=== PATIENT | male | born 1935 | race Caucasian/White ===

== ENCOUNTER 2016-12-21 12:53 | Inpatient (IN) | payer MEDICARE, OTHER ==
[2016-12-21] VITALS (7 sets, daily range): BP systolic 105–137; BP diastolic 32–86; PULSE 50–66; RESP 15–21; O2SAT 93–99
[~2016-12-21] VITALS: Ht 177.8 cm; Wt 68.3 kg
[~2016-12-21 12:53] MED LIST: ALBU8.5H2 INHALATION; ASPI81TA3 PO; ATRV10T PO; CARV25TA PO; CHOL200047 PO; FURO-128 PO; INSU100C8 SUBQ; INSU100V7 SUBQ; IPRA3AMP IH; LISI10TA PO; NITR12SP5 SL; ZYL100 PO
[2016-12-21 13:48] LABS: BASOPHILS % (AUTO) 0.2 % (0-3); EOSINOPHILS % (AUTO) 1.4 % (0-5); Platelet Count 128 bil/L (150-400)
--- NOTE | 2016-12-21 13:58 | ED.REPORT ---
HPI-General Illness Date of Service Dec 21, 2016 ED Provider: Ishan Fields MD 81 year old male with a history of CHF, CAD, COPD, DM, upper GI bleed, and HTN presents to the ER complaining of generalized weakness onset today. He states that he collapsed to his knees after taking two steps toward his vehicle today. Associated symptoms include several weeks of bilateral lower extremity swelling , SOB, dizziness, and urinary retention. Recent history of sore throat with green drainage and nasal congestion. Patient denies any chest pain, nausea, vomiting, and abdominal pain. He is on home O2. Nursing Notes Stated Complaint: WEAKNESS/POSS HEART PROBLEMS Chief Complaint: General Complaint Nursing Notes Reviewed: Yes Allergies: Coded Allergies: Penicillins (Verified Allergy, Severe, 03/30/16) metformin (Verified Allergy, Severe, 03/30/16) tuberculin, purified protein deriva (Verified Allergy, Unknown, 03/30/16) Scheduled Allopurinol (Allopurinol) 100 Mg Tablet 200 MG PO DAILY Carvedilol (Coreg) 25 Mg Tablet 25 MG PO BID Cholecalciferol (Vitamin D3) (Vitamin D3) 2,000 Unit Capsule 3,000 UNIT PO DAILY Insulin Aspart (NovoLOG U100 Insulin Vial) 100 U/Ml U 5 UNIT SUBQ TIDWM Only take with meals if BG > 140 mg/dL prior to meal Insulin Glargine (Lantus U100 Insulin Vial) 100 Unit/Ml Vial 25-40 UNIT SUBQ HS *On avg takes 25-30 units, see sliding scale below Sliding Scale: BG 150-200 : 25 units BG 201-250: 30 units BG 251-300: 35 units BG 301-350: 40 units Ipratropium/Albuterol Sulfate (Iprat-Albut 0.5-3(2.5) mg/3 mL Inhalant Soln) 3 Ml Ampul.neb 3 ML IH Q6 Lisinopril (Lisinopril) 10 Mg Tablet 10 MG PO DAILY Torsemide (Torsemide) 20 Mg Tablet 20 MG PO BIDWM Scheduled PRN Albuterol HFA (Proair HFA) 8.5 Gm Hfa.aer.ad 2 PUFFS INHALATION Q4H PRN PRN For Shortness of Breath Nitroglycerin (Nitrolingual) 12 Gm Henderson 0.4 MG SL prn PRN PRN For Chest Pain General Time Seen by : 13:57 Chief Complaint Weakness Hx Obtained From: Patient Arrived By: Walk-in Sudden in Onset?: Yes Onset Occurred: Just prior to arrival Symptom Duration: Since onset Associated with: Reports: Dizziness, Shortness of breath, Denies: Abdominal pain, Chest pain, Nausea, Vomiting Context Related History: Reports COPD, Reports Coronary artery disease, Reports Diabetes mellitus Similar Sx Previous: No Past Medical History Past Medical History Gout History of colon cancer, s/p colectomy with subsequent hepatic metastasis with embolization and radiation implants at [facility]. History of upper GI bleed Reports: COPD, Congestive heart failure, Coronary artery disease, Diabetes mellitus, Hypertension Past Surgical History Colectomy Reports: CABG Reports: Back/neck surgery, Pacemaker insertion Smoking History Former Smoker Social History Alcohol Use: 1-3 per week Drug Use: Denies drug use Review of Systems +Urinary Retention Full Review of Systems Constitutional: Reports: Weakness - generalized, Denies: Chills, Fever Ears / Nose / Throat: Reports: Nasal congestion, Sore throat Respiratory: Reports: Shortness of breath Cardiovascular: Denies: Chest pain GI: Denies: Abdominal pain, Diarrhea, Nausea, Vomiting Musculoskeletal: Reports: Extremity swelling (Lower, Bilateral) Neurologic: Reports: Dizziness Complete sys rev & neg: except as marked. Physical Exam Vital Signs Vital Signs Date Time Temp Pulse Resp B/P Pulse Ox O2 Delivery O2 Flow Rate FiO2 12/21/16 14:54 54 15 132/45 96 Nasal Cannula 12/21/16 13:31 53 18 116/36 99 Nasal Cannula 3 12/21/16 12:55 36. 53 20 105/32 93 Nasal Cannula 4 Initial VS: Reviewed Head / Eyes: Atraumatic, Normocephalic Neck: Supple, Non-tender, Full range of motion Abdomen / GI: Soft, Non-tender, No guarding, No rebound, No distention Skin: Warm, Dry, No cyanosis Neurologic: Alert, Oriented, Nonfocal General/Constitutional: Awake, Alert, Well developed Respiratory / Chest: Breath sounds NL, No respiratory distress, No rales, No rhonchi, No wheezing, No retractions, No stridor Cardiovascular: Heart rate NL, Regular rhythm, Heart sounds NL, Cap refill not delayed, Peripheral circulation NL 2-3+ edema below the knees, bilaterally 2+ edema above the knees, bilaterally Male Genitourinary: Penis NL Mild scrotal edema. Rectum / Perineum: No hemorrhoids, No lesions, Sphincter tone NL Rectal for Blood: Positive: Blood - occult heme + Brown stool. Interpretation & Diagnostics Bedside US performed by me. 200ml urine present by ultrasound. Lab Results Interpretation Result Diagram: 12/21/16 1330 12/21/16 1330 Test 12/21/16 13:30 12/21/16 16:45 12/21/16 17:11 White Blood Count 9.4th/mm3 (3.8-10.1) Red Blood Count 2.79mil/mm3 (4.40-5.80) Hemoglobin 7.8g/dL (13.8-17.2) Hematocrit 25.4% (41.0-50.0) Mean Corpuscular Volume 91.0fL (81-100) Mean Corpuscular Hemoglobin 28.0pg (27.0-35.0) Mean Corpuscular Hemoglobin Concent 30.7% (32.0-37.0) Red Cell Distribution Width 18.5% (12.3-15.4) Platelet Count 128bil/L (150-400) Neutrophils (%) (Auto) 83.0% (40-74) Lymphocytes (%) (Auto) 10.2% (14-46) Monocytes (%) (Auto) 5.0% (4-12) Eosinophils (%) (Auto) 1.4% (0-5) Basophils (%) (Auto) 0.2% (0-3) Sodium Level 136mEq/L (134-144) Potassium Level 4.1mEq/L (3.5-5.2) Chloride Level 96mEq/L (97-108) Carbon Dioxide Level 20mmol/L (18-29) Blood Urea Nitrogen 74mg/dL (8-27) Creatinine 4.35mg/dL (0.76-1.27) Estimat Glomerular Filtration Rate 14mL/min (>59) Glucose Level 89mg/dL (60-99) Calcium Level 8.4mg/dL (8.5-10.1) Magnesium Level 1.8mg/dL (1.6-2.6) Iron Level 39ug/dL (35-150) Total Iron Binding Capacity 193ug/dL (250-450) Percent Iron Saturation 20%sat (15-50) Unsaturated Iron Binding 153.5ug/dL Ferritin 200ng/mL (30-400) Total Bilirubin 1.5mg/dL (0.0-1.2) Aspartate Amino Transf (AST/SGOT) 21U/L (0-50) Alanine Aminotransferase (ALT/SGPT) 16U/L (0-44) Alkaline Phosphatase 328U/L (25-160) Troponin T 0.339ug/L (0.0-0.011) Pro-B-Type Natriuretic Peptide 35317wg/mL (0-486) Total Protein 7.1g/dL (6.4-8.4) Albumin 2.7g/dL (3.4-5.0) Lactic Acid Level 1.5mmol/L (0.4-2.0) Reticulocyte Count,Calculated 1.5% (0.6-2.6) ECG Interpretation ECG Interpretation: A-V dual-paced rhythm with some inhibition Time: 13:47 Interpreted by: ED physician X-Ray Chest Interpretation Chest Xray Interpretation: IMPRESSION: Patchy airspace opacity in the right lung base suspicious for pneumonia. A small right-sided pleural effusion. Dictated by: Edilia Mendoza MD, PhD on 12/21/2016 at 14:50 Approved by: Edilia Mendoza MD, PhD on 12/21/2016 at 14:51 View: Portable, 1 view Interpretation / Wet Read by: Interpret - Radiologist US Renal/Urinary Tract Exam Performed by: Allied health pract Exam Type: Diagnostic Exam Interpreted by: Radiologist Indication: Urinary retention Re-Eval/Medical Decision Source of Hx: Old records Time of Eval: 15:13 Re-Evaluation/Progress Note: Discussed lab and radiology results and need for admission. Patient is amenable to the plan. All other questions addressed. Consultation #1: Referral / Consult Name: Marisa Soler MD Consulted With: Nephrology Call Returned at: 16:20 Coroner/Medical Examiner: Will see patient Note: Order renal ultrasound. Consultation #2: Referral / Consult Name: Jourdan Dolan MD Consulted With: Hospitalist Call Returned at: 16:23 Coroner/Medical Examiner: Agrees with eval, Agrees with plan, Accepts admit Counseled Regarding: Diagnosis, Lab results, Need for admission Discharge & Departure Primary Impression: Acute renal failure Acute renal failure type: unspecified Qualified Code: N17.9 - Acute kidney failure, unspecified Additional Impression: CHF (congestive heart failure) Congestive heart failure type: systolic Congestive heart failure chronicity: acute on chronic Qualified Code: I50.23 - Acute on chronic systolic ( congestive) heart failure Disposition: ADMITTED TO HOSPITAL Discharge Condition All VS Reviewed: Yes Condition: Stable Referrals: OTHER,PHYSICIAN (PCP) Scribe Attestation Portions of this note were transcribed by Hector Parson. I, Dr. Fields, personally performed the history, physical exam and medical decision-making; I reviewed and confirmed the accuracy of the information in the transcribed note. Signed by: Miguelito De La Cruz, 12/21/2016 and 16:25 Ishan Fields MD Dec 21, 2016 13:58 HECTOR PARSON Dec 21, 2016 14:19
[2016-12-21] MEDS ORDERED: TORS20TA3 PO (14:03)
[2016-12-21 14:27] LABS: Magnesium 1.8 mg/dL (1.6-2.6)
[2016-12-21 14:28] LABS: TROPONIN T 0.339 ug/L (0.0-0.011)
--- NOTE | 2016-12-21 14:52 | DRSVH ---
PROCEDURE: X-RAY CHEST ONE VIEW, PORTABLE ([id number]) INDICATIONS: SOB TECHNIQUE: One view of the chest was acquired. COMPARISON: [facility], CR, XR CHEST 1VW (PORTABLE), 11/11/2015, 12:52. FINDINGS: Surgical changes and devices: Status post CABG procedure. AICD is stable in appearance. Lungs and pleura: Small right-sided pleural effusion is noted. Patchy airspace opacities of the right lung base suspicious for pneumonia. Mediastinum: Mediastinal contours appear normal. Heart size is normal. Bones and chest wall: No suspicious bony lesions. Overlying soft tissues appear unremarkable. IMPRESSION: Patchy airspace opacity in the right lung base suspicious for pneumonia. A small right-si ded pleural effusion. Dictated by: Edilia Mendoza MD, PhD on 12/21/2016 at 14:50 Approved by: Edilia Mendoza MD, PhD on 12/21/2016 at 14:51
[2016-12-21] MEDS ORDERED: Alum-Mag Hydrox-Simeth 30 mL Suspension PO PRN (16:25)
[2016-12-21] MEDS ORDERED: Polyethylene Glycol (PEG) 17 Gm Powder PO PRN (16:25)
[2016-12-21] MEDS ORDERED: Ondansetron 2 mg/mL 2 mL Inj IVPUSH PRN (16:25)
[2016-12-21] MEDS: Heparin 5,000 Unit/mL Inj SUBQ SCH (16:30)
[2016-12-21] MEDS ORDERED: Glucose 40% Oral Gel 15 Gm Tube PO PRN (16:35)
[2016-12-21 17:17] LABS: Unsaturated Iron Binding 153.5 ug/dL
--- NOTE | 2016-12-21 17:27 | DRSVH ---
PROCEDURE: US RENAL SONOGRAM INDICATIONS: acute renal failure, room 15 TECHNIQUE: Real-time scanning was performed of the kidneys and bladder, with image documentation. COMPARISON: None. FINDINGS: Kidneys: Kidneys are normal in size. Right kidney measures 11.4 cm long; left kidney measures 11.9 cm long. Right renal cortical thickness is 1.3 cm; left renal cortical thickness is 1.8 cm. Renal c ortical echotexture is normal. No hydronephrosis or nephrolithiasis. No suspicious solid mass lesio ns. Bladder: Pre-void bladder volume is 27 mL. Post-void residual is zero mL. Pre-void images demonstr ate no intraluminal masses or stones. On pre-void images, right ureteral jet is noted with color Dop pler interrogation. (Of note, ureteral jets may not be detectable in up to 25% of cases due to insuf ficient differences in specific gravity between ureteral and bladder urine). Miscellaneous: There is a minimal appearance of right upper and lower quadrant fluid. IMPRESSION: 1. No obstruction. 2. Minimal appearance of right upper quadrant and lower quadrant fluid. Dictated by: Angeles Armando M.D. on 12/21/2016 at 17:25 Approved by: Angeles Armando M.D. on 12/21/2016 at 17:26
[2016-12-21] MEDS: Insulin LISPRO 300 Unit/3 mL Inj SUBQ SCH ×2 (17:30→22:00)
--- NOTE | 2016-12-21 17:46 | NUR ---
Admission Pt arrived on [facility] to rm 3025, A/Ox3, IV Saline locked, 2.5 L O2 via NC. No complains of pain. Pt unable to transfer self , pt slide from from gurney to bed. Family at bedside. Call light with in reach.
[2016-12-21] MEDS: Furosemide 10 mg/mL 4 mL Inj IVPUSH SCH (18:34)
--- NOTE | 2016-12-21 19:14 | PCM.HPMED ---
Subjective Date of Service Dec 21, 2016 Primary Provider: Admitting Physician: Primary Care Physician: Miguel Attending Physician: Admit Status: From the Emergency Department, Full Admit, Remote Telemetry Chief Complaint: Generalized weakness History of Present Illness: Vahid Parham is a 81 year old male with Congestive heart failure, Coronary artery disease, COPD and chronic respiratory failure, Diabetes who presents to [facility] emergency department complaining of generalized weakness onset today. Patient reports being weak for about 10 days which was progressively getting worst. He states that he collapsed to his knees after taking two steps toward his vehicle today. He denies any trauma and did not hit his head. Associated symptoms include several weeks of bilateral lower extremity swelling, dyspnea on exertion, dizziness, and urinary retention. Recent history of sore throat with green drainage and nasal congestion as well as productive cough. Denies any chest pain, nausea, vomiting, and abdominal pain. He is on home O2. He reports having a lot of stress recently due to his being hospitalized and was discharged to [facility] a few days ago. He denies taking any NSAIDS of other new medications. Patient states he was exposed to [place] during [place] war and has multiple medical issues related to this Case discussed with Dr Fields, workup showed anemia (Hgb 7.8) and Acute kidney injury (74/4.35). Review of Systems: Pertinent positives as noted in HPI. All other systems were reviewed and are negative Allergies Coded Allergies: Penicillins (Verified Allergy, Severe, 03/30/16) metformin (Verified Allergy, Severe, 03/30/16) tuberculin, purified protein deriva (Verified Allergy, Unknown, 03/30/16) Home Medications From [facility], not yet confirmed Vahid Parham [id number] 1935 10/02/2016 03:20 PM 10/22 allopurinol 100 mg tablet take 3 tablet by oral route every day Aspirin Low-Strength 81 mg chewable tablet chew 1 tablet by oral route every day atorvastatin 10 mg tablet take 1 tablet by oral route every day Coreg 25 mg tablet take 1 tablet by oral route 2 times every day with food DuoNeb 0.5 mg-3 mg(2.5 mg base)/3 mL solution for nebulization inhale 3 milliliter by nebulization route 4 times every day as needed Lantus 100 unit/mL subcutaneous solution inject 20-40 Unit by Subcutaneous route Q pm lisinopril 10 mg tablet take 1 tablet by oral route every day Nitrolingual 400 mcg/spray place 1 spray (0.4MG) by Translingual route onto or under the tongue at the first sign of an attack; no more than3 sprays are recommended within a 15 minute period. Novolog 100 unit/mL subcutaneous solution inject by subcutaneous route as per insulin sliding scale protocol- 5-7 units SQ per meal ProAir HFA 90 mcg/actuation aerosol inhaler inhale 2 puff by inhalation route every 4 - 6 hours as needed torsemide 20 mg tablet take 2 tablet by oral route every day Vitamin D3 2,000 unit capsule Taking 3,000 units daily PMH Diabetes type 2 Metastatic Colon cancer to liver s/p radiation at Congestive Heart Failure (heart failure with reduced ejection fraction EF 44%) with cardiomyopathy s/p bi ICD placement Chronic respiratory failure on oxygen at home Peripheral Vascular Disease Coronary artery disease S/P CABG x 4 Peripheral neuropathy Left Bundle Branch Block HTN (hypertension) Hypercholesterolemia Colon carcinoma metastatic to multiple sites Upper GI bleeding from gastritis 2008 . Surgical History CABG Bi ventricular ICD placement Cholecystectomy Back surgery Cataract surgery s/p Angioplasty right femoral profunda Family History Mother had Stroke Brother had NH Social History Hx Alcohol Use: Yes (weekly x 3) Hx Substance Use: No Hx Tobacco Use: Yes Smoking Status: Former Smoker Living Arrangement: Alone Exam Vital Signs Vital Sign - Last Date Time Temp Pulse Resp B/P Pulse Ox O2 Delivery O2 Flow Rate FiO2 12/21/16 14:54 54 15 132/45 96 Nasal Cannula 12/21/16 13:31 3 12/21/16 12:55 36. Exam General: Alert, Oriented X3, Cooperative, No acute Distress Eyes: PERRLA, Scleral Anicteric Mouth: Mouth Normal, Mucous Membranes Moist/[place] Neck: Supple, no Thyromegaly, trachea central. Chest & Lungs: Clear to auscultation & percussion, No adventitious breath sounds, no crackles, no wheeze Cardiovascular: Normal S1, Normal S2, No Murmurs/Rubs/Gallops, Regular Rate/ Rhythm, Murmur, (No JVD, 3+ peripheral edema) Pulses: Radial (present and equal), Dorsalis Pedi (present and equal) Abdomen: Soft, Non-tender, Non-distended, Normoactive bowel tones. Musculoskeletal: Unremarkable. Normal range of motion, no swollen or erythematous joints Extremities: 3+ pitting edema, no cyanosis, no clubbing. Skin: No rashes. Warm and dry, no erythematous areas Neurological: Grossly neurologically intact, has generalized weakness, slurred Speech but baseline, Sensation Intact Lymphatic: Lymph nodes Cervical and Axillary not palpable. Lab and Diagnostics Labs Laboratory Tests Test 12/21/16 13:30 White Blood Count 9.4th/mm3 (3.8-10.1) Red Blood Count 2.79mil/mm3 (4.40-5.80) Hemoglobin 7.8g/dL (13.8-17.2) Hematocrit 25.4% (41.0-50.0) Mean Corpuscular Volume 91.0fL (81-100) Mean Corpuscular Hemoglobin 28.0pg (27.0-35.0) Mean Corpuscular Hemoglobin Concent 30.7% (32.0-37.0) Red Cell Distribution Width 18.5% (12.3-15.4) Platelet Count 128bil/L (150-400) Neutrophils (%) (Auto) 83.0% (40-74) Lymphocytes (%) (Auto) 10.2% (14-46) Monocytes (%) (Auto) 5.0% (4-12) Eosinophils (%) (Auto) 1.4% (0-5) Basophils (%) (Auto) 0.2% (0-3) Sodium Level 136mEq/L (134-144) Potassium Level 4.1mEq/L (3.5-5.2) Chloride Level 96mEq/L (97-108) Carbon Dioxide Level 20mmol/L (18-29) Blood Urea Nitrogen 74mg/dL (8-27) Creatinine 4.35mg/dL (0.76-1.27) Estimat Glomerular Filtration Rate 14mL/min (>59) Glucose Level 89mg/dL (60-99) Lactic Acid Level 5.0mmol/L (0.4-2.0) Calcium Level 8.4mg/dL (8.5-10.1) Magnesium Level 1.8mg/dL (1.6-2.6) Total Bilirubin 1.5mg/dL (0.0-1.2) Aspartate Amino Transf (AST/SGOT) 21U/L (0-50) Alanine Aminotransferase (ALT/SGPT) 16U/L (0-44) Alkaline Phosphatase 328U/L (25-160) Troponin T 0.339ug/L (0.0-0.011) Total Protein 7.1g/dL (6.4-8.4) Albumin 2.7g/dL (3.4-5.0) Microbiology 12/21/16 Blood Culture, Received Pending Result Diagram: 12/21/16 1330 12/21/16 1330 X-Rays, CTs and MRIs X-RAY CHEST ONE VIEW, PORTABLE 12/21/16 IMPRESSION: Patchy airspace opacity in the right lung base suspicious for pneumonia. A small right-sided pleural effusion. Dictated by: Edilia Mendoza MD, PhD on 12/21/2016 at 14:50 Approved by: Edilia Mendoza MD, PhD on 12/21/2016 at 14:51 Assessment & Plan Vahid Parham is a 81 year old male with Congestive heart failure, Coronary artery disease, COPD and chronic respiratory failure, Diabetes who presents to [facility] emergency department complaining of generalized weakness 1. Acute Kidney Injury. Present on admission Etiology unclear but consider pre renal azotemia, Obstructive uropathy, Cardiorenal syndrome - weakness could be due to Uremia but other causes are possible - no indication for emergent dialysis with no hyperkalemia or acidosis - avoid nephrotoxic insults including contrast and medications - Renal ultrasound pending - holding TAMRA inhibitor - monitor urine output - Nephrology consulted 2. Lactic acidosis. Present on admission Due to tissue hypoxia. NO clear infection identified at this time - trending till normal 3. Elevated troponin. Present on admission Likely due to demand ischemia although patient has risk factors for Non ST elevation [place] - trending troponin overnight - will obtain a complete echo 4 Anemia, likley chronic. Present on admission Previous history of Upper GI bleeding from gastritis - will transfuse if Hgb drops < 8 - Iron studies ordered - No clinical signs of active bleeding 5 Chronic heart failure with possible acute exacerbation. Dyspnea with increasing leg edema. Patient on Torsemide as outpatient - Lasix 40 mg IV q 8 hours - monitor weight and urine output - complete echo tomorrow 6 Thrombocytopenia. Present on admission Likely chronic and likely related to cirrhosis - monitor for bleeding 7 Diabetes Type 2 - low correction Lispro algorithm - checking A1c - Acetaminophen as needed for mild pain/fever/headache - Bowel regimen as needed - Antiemetic as needed Patient admitted under inpatient status with expected length of stay > 2 midnights for severity of present symptoms, complexities of treatment plan and risk for adverse event . Resuscitation Status: CPR: Attempt Resuscitation Jourdan Dolan MD Dec 21, 2016 16:30
--- NOTE | 2016-12-21 19:18 | ABG ---
DateTimeAnalyzed 19:13:00 -_ pH ____7.401 - 7.350 7.450 pCO2 ___38.2__ -mmHg 35.0 45.0 pO2 ___55.6__ -mmHg 69.0 116 HCO3- ___23.3__ -mmol/L 22.0 26.0 ABE ___-0.8__ -mmol/L -2.0 2.0 tHb ____7.6__ -g/dL O2Hb ___88.1__ -% COHb ____2.0__ -% MetHb ____0.6__ -% sO2 ___90.5__ -% 25.0 FIO2 ___28.0__ -% Drawn By blf - Date/Time Notified____ 19:18:00 -_ Notified By blf - Notified Whom Haresh Car RN - Age 73 -years B 756 -mmHg tO2 ____9.5__ -Vol% Chris test _Positive -
--- NOTE | 2016-12-21 19:19 | ABG ---
DateTimeAnalyzed 19:13:00 -_ pH ____7.401 - 7.350 7.450 pCO2 ___38.2__ -mmHg 35.0 45.0 pO2 ___55.6__ -mmHg 69.0 116 HCO3- ___23.3__ -mmol/L 22.0 26.0 ABE ___-0.8__ -mmol/L -2.0 2.0 tHb ____7.6__ -g/dL O2Hb ___88.1__ -% COHb ____2.0__ -% MetHb ____0.6__ -% sO2 ___90.5__ -% 25.0 FIO2 ___28.0__ -% Drawn By blf - Date/Time Notified____ 19:18:00 -_ Spontaneous_RR ___16.0__ -b/min Liter_Flow ____2.0__ -L/min Oxygen Device 1 __CANNULA - Notified By blf - Notified Whom Haresh Car RN - Age 73 -years B 756 -mmHg tO2 ____9.5__ -Vol% Chris test _Positive -
[2016-12-22] VITALS (11 sets, daily range): BP systolic 120–154; BP diastolic 46–60; PULSE 50–57; RESP 18–22; O2SAT 95–100
[2016-12-22] MEDS ORDERED: ATRV10T PO (00:14)
[2016-12-22] MEDS ORDERED: CHOL10008 PO (00:16)
[2016-12-22] MEDS ORDERED: ASPI81TA3 PO (00:18)
[2016-12-22] MEDS: Heparin 5,000 Unit/mL Inj SUBQ SCH ×3 (00:30→16:09)
--- NOTE | 2016-12-22 00:43 | CONS ---
[address] [address] CONSULTATION REPORT PATIENT: EMBER PANDEY : 1935 MR#: [id number] ADMIT: 12/21/2016 JOB ID: [id number] DATE OF SERVICE: 12/21/2016 REQUESTING PHYSICIAN: Ishan Fields MD REASON FOR CONSULTATION: Management of abnormal kidney function. CHIEF COMPLAINT: Lower extremity swelling and weakness. HISTORY OF PRESENT ILLNESS: This is a very pleasant 81-year-old gentleman with significant past medical history of type 2 diabetes, hypertension, COPD, coronary artery disease status post CABG, heart failure, status post AICD, colon cancer, status post right-sided colectomy, presented to the hospital with complaint of worsening lower extremity swelling and generalized weakness. The patient reported that he has had lower extremity swelling over the past 10-14 days. Today, apparently he collapsed on his knees while he stepping toward his vehicle. He said that he had increased dosage of diuretics, however, it did not improve the fluid retention. Last night, he noticed some clots in the urine. He does not take any blood thinner, but on the medication list he is on aspirin. His initial BUN and creatinine were 74 and 4.35 respectively. According to our record his previous serum creatinine in March 2016 was 1.19. The patient denies any knowledge of having kidney disease. He does not use any NSAIDs. He does not have any history of vasculitis or nephrolithiasis. Bladder scan was done at the bedside and showed urine volume of 200 mL. I had a chance to look at the kidney sonogram that was done at the bedside. There was no evidence of hydronephrosis. However, I am waiting for an official report. The patient denies history of fever or chills. No nausea, vomiting, diarrhea. He does not have any chest pressure or chest pain. He does have history of dyspnea on exertion and generalized weakness as mentioned earlier. PAST MEDICAL HISTORY: 1. Hypertension. 2. Type 2 diabetes. 3. Stage IV colon cancer, status post right hemicolectomy and radiation. 4. COPD on home oxygen. 5. Peripheral vascular disease. 6. Coronary artery disease status post CABG. 7. CHF with reduced ejection fraction. 8. Status post AICD. PAST SURGICAL HISTORY: 1. Status post CABG. 2. Status post AICD. 3. Status post cholecystectomy. 4. Status post back surgery. 5. Angioplasty of the right femoral profunda. FAMILY HISTORY: Positive for stroke and CT in the family. No kidney disease in the family. SOCIAL HISTORY: Patient is a former smoker. ALLERGIES: 1. PENICILLINS. 2. METFORMIN. 3. TUBERCULIN PURIFIED PROTEIN DERIVATIVE. REVIEW OF SYSTEMS: A 14-point review of systems was performed. PHYSICAL EXAMINATION: Temperature 36.0, pulse 54, respiratory rate 15, blood pressure 132/45, O2 sat 96% on nasal cannula. General appearance: Awake, alert, oriented x3, in no acute distress. HEENT: Mild pallor. No jaundice. Positive for JVD. No lymphadenopathy. No thyroid enlargement. Heart: Irregular rhythm. Soft systolic murmur noted. Defibrillator in place on the left upper chest. Scar is dry, clean, intact. Lungs: Coarse crackles at the bases. No wheezing. No rhonchi. Abdomen: Soft, nontender, nondistended. No hepatosplenomegaly. Extremities: 2+ edema on the lower extremities. LABORATORIES: Sodium 136, potassium 4.1, chloride 96, bicarb 20, BUN 74, creatinine 4.35, glucose 89. Lactic acid 5.0, calcium of 8.4, magnesium 1.8. Total bilirubin is 1.5, AST 21, ALT 16, alkaline phos 328. Troponin T is 0.339. Albumin 2.7. Hemoglobin 7.8, WBC 9.4, platelets 128. ASSESSMENT: 1. Acute kidney injury on chronic kidney disease, stage III. Patient with significant past medical history of heart failure, reduced ejection fraction, status post automatic implantable cardioverter-defibrillator placement. We have performed a bedside renal sonogram and so far does not show any obstruction or stones. He reports no history of nonsteroidal anti-inflammatory drug use. He reported to us that he is weak and with worsening lower extremity swelling. I am concerned of cardiorenal syndrome. At this point, I would like to give him IV diuretics Lasix 40 mg q. 8 h. Will order urinalysis and urine eosinophils. For now, will hold lisinopril. Will put patient on low-salt diet and continue daily weight. 2. Anion gap metabolic acidosis with a lactate level of 5.0. Rule out poor tissue perfusion versus sepsis. 3. Elevated serum troponin in the setting of renal insufficiency. 4. History of chronic obstructive pulmonary disease, on home oxygen. Will order an ABG. 5. Normocytic anemia. Will order anemic workup including ferritin, iron panel, reticulocyte count and stool occult blood. 6. Recommend to repeat echocardiogram. 7. History of heart failure, reduced ejection fraction, status post AICD. Will repeat echocardiogram. Thank you for the consultation. We will monitor along with you. MTDD
[2016-12-22] MEDS: Furosemide 10 mg/mL 4 mL Inj IVPUSH SCH ×2 (01:46→10:16)
--- NOTE | 2016-12-22 02:07 | NUR ---
Chest pain Pt experiencing new on set CP, EKG ordered and no significant changes noted. VSS and Tele paced. notified and orders for nitro SL were given. Pt states that he takes nitro as needed and had taken some this am. Pt usually uses the spray and we are currently out of stock. Administered 3 SL nitro and effective. VSS
[2016-12-22 04:06] LABS: APPEARANCE,URINE CLEAR (CLEAR,HAZY); COLOR,URINE YELLOW (YELLOW)
[2016-12-22 04:07] LABS: OCCULT BLOOD,URINE NEGATIVE (NEGATIVE); UROBILINOGEN,URINE NORMAL (NORMAL)
[2016-12-22] MEDS: Insulin LISPRO 300 Unit/3 mL Inj SUBQ SCH ×4 (08:00→22:32)
[2016-12-22 09:14] LABS: BASOPHILS % (AUTO) 0.1 % (0-3); EOSINOPHILS % (AUTO) 1.8 % (0-5); MONOCYTES % (AUTO) 5.9 % (4-12); Mean Corpuscular Volume 91.1 fL (81-100); NEUTROPHILS % (AUTO) 79.4 % (40-74); Platelet Count 122 bil/L (150-400)
[2016-12-22 09:34] LABS: INR 1.12 ratio
[2016-12-22 10:09] LABS: Vitamin B12 540 pg/mL (211-946)
[2016-12-22 10:11] LABS: Magnesium 1.9 mg/dL (1.6-2.6)
--- NOTE | 2016-12-22 10:27 | NUR ---
diet pt asks that he be put on a general diet because that is what he eats at home. Risks discussed regarding a change to a general diet, pt still wants a general diet. Diet Against Advice paperwork is signed and put into the chart.
[2016-12-22 10:35] LABS: TROPONIN T 0.308 ug/L (0.0-0.011)
--- NOTE | 2016-12-22 11:35 | PCM.PNMED ---
Subjective Date of Service Dec 22, 2016 Subjective Patient is breathing better and has less lower extremity swelling. However his kidney function has been deteriorating. Intake was 600 mL output was 400 mL. Exam Vital Signs Vital Sign - Last Date Time Temp Pulse Resp B/P Pulse Ox O2 Delivery O2 Flow Rate FiO2 12/22/16 10:56 50 12/22/16 10:37 Supplement Oxygen 12/22/16 09:22 36.4 20 137/53 99 3.50 Exam PHYSICAL EXAMINATION: General appearance: Awake, alert, oriented x3, in no acute distress. HEENT: Mild pallor. No jaundice. Positive for JVD. No lymphadenopathy. No thyroid enlargement. Heart: Irregular rhythm. Soft systolic murmur noted. Defibrillator in place on the left upper chest. Scar is dry, clean, intact. Lungs: Decreased breath sounds at bases, No wheezing. No rhonchi. Abdomen: Soft, nontender, nondistended. No hepatosplenomegaly. Extremities: 1+ edema on the lower extremities. Lab and Diagnostics Result Diagram: 12/22/16 0908 12/22/16 0908 X-Rays, CTs and MRIs X-RAY CHEST ONE VIEW, PORTABLE 12/21/16 IMPRESSION: Patchy airspace opacity in the right lung base suspicious for pneumonia. A small right-sided pleural effusion. Dictated by: Edilia Mendoza MD, PhD on 12/21/2016 at 14:50 Approved by: Edilia Mendoza MD, PhD on 12/21/2016 at 14:51 Assessment & Plan ASSESSMENT: 1. Acute kidney injury on chronic kidney disease, stage III. - Worsening kidney function - Etiologies is unclear, DDx cardiorenal syndrome, ATN, AIN however we need to rule out vasculitis (pulmonary-renal syndrome) - We will order a vasculitic workup, hepatitis panel and HIV. - If kidney function is getting worse will arrange for renal replacement therapy. 2. Anion gap metabolic acidosis with a lactate level of 5.0. Rule out poor tissue perfusion versus sepsis. 3. Elevated serum troponin in the setting of renal insufficiency. 4. Suspected RLL PNA vs vasculitis process. 5. History of chronic obstructive pulmonary disease, on home oxygen. 6. Normocytic anemia. Likely due to anemia of chronic disease 6. Recommend to repeat echocardiogram. 7. History of heart failure, reduced ejection fraction, status post AICD. VTE Mechanical Devices: Venous Foot Pump Resuscitation Status: CPR: Attempt Resuscitation Marisa Soler MD Dec 22, 2016 11:35 Marisa Soler MD Dec 22, 2016 11:35
[2016-12-22] MEDS ORDERED: Darbepoetin Alfa 40 mCg/0.4 mL Inj SUBQ ONE (11:50)
--- NOTE | 2016-12-22 14:43 | NUR ---
Social Work-initial assessment: Data:See initial assessment.Pt is a 81 y/o male who was admitted on 12/21/16 for acute renal failure per H&P. Pt's insurance is [employer] and [employer] and PCP is Dr. Suazo.EMR reviewed. Pt's readmission score is 4-high risk. SW met with pt to discuss discharge planning, SW role explained. Pt resides at home where he remains independent with ADLs. Pt's recently has been placed at [facility]. Pt does drive and does not use any DME. Pt has no HH or SNF history. 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 SW discussed DPOA/advanced directive, pt confirms that he has completed this, SW encouraged pt to bring in a copy to the hospital. PT worked with pt and anticipate pt to return home with HH services. SW discussed HH services, at this time pt is declining, SW to follow up again. Pt confirms that his daughter will provide transport home at discharge. SW will continue to follow. Assessment:pt who is independent at baseline. Plan:Pt to discharge home when medically stable via POV. SW to follow up again regarding HH. SW will continue to follow. LOVE Isbell Addendum: 12/22/16 at 1459 by JORGE A CROSS Amended: Links added.
--- NOTE | 2016-12-22 15:50 | DRSVH ---
PROCEDURE: X-RAY CHEST ONE VIEW, PORTABLE ([id number]) INDICATIONS: CHF, PNA TECHNIQUE: One view of the chest was acquired. COMPARISON: [facility], CR, XR CHEST 1VW (PORTABLE), 12/21/2016, 13:37. FINDINGS: Surgical changes and devices: Stable positioning of left chest AICD. Median sternotomy wires. Surgi sita clips project over the epigastrium. Lungs and pleura: Diffuse, widespread bilateral pulmonary interstitial and air space opacities are p resent similar to prior examination. Small right pleural effusion. No pneumothorax. Mediastinum: Mediastinal contours appear normal. Heart size is enlarged. Bones and chest wall: No suspicious bony lesions. Overlying soft tissues appear unremarkable. IMPRESSION: CHF and/or bilateral pneumonia similar to prior examination. Dictated by: Otilio Cullen [facility] Interpreted: Edilia Mendoza MD on 12/22/2016 at 15:49 Transcribed by: CONNIE on 12/22/2016 at 15:50 Approved by: Edilia Mendoza MD, PhD on 12/23/2016 at 11:03
--- NOTE | 2016-12-22 16:12 | PCM.PNMED ---
Subjective Date of Service Dec 22, 2016 Subjective denies any new issues/complaints Exam Vital Signs Vital Sign - Last Date Time Temp Pulse Resp B/P Pulse Ox O2 Delivery O2 Flow Rate FiO2 12/22/16 13:24 36.7 54 18 128/50 98 Nasal Cannula 3.50 Exam General: Alert, Cooperative, No acute Distress Eyes: PERRLA, Scleral Anicteric Mouth: Mouth Normal, Mucous Membranes Moist/[place] Neck: Supple Chest & Lungs: Clear to auscultation bilat Cardiovascular: Regular Rate/Rhythm Pulses: Dorsalis Pedi (present and equal) Abdomen: Soft, Non-tender, Non-distended, Normoactive bowel tones. Musculoskeletal: Unremarkable. Normal range of motion, no swollen or erythematous joints Extremities: 3+ pitting edema, no cyanosis, no clubbing. Skin: No rashes. Neurological: Grossly neurologically intact IVs and Medications Medications Reviewed: Medications were reviewed in detail Lab and Diagnostics Result Diagram: 12/22/16 0908 12/22/16 0908 X-Rays, CTs and MRIs X-RAY CHEST ONE VIEW, PORTABLE 12/21/16 IMPRESSION: Patchy airspace opacity in the right lung base suspicious for pneumonia. A small right-sided pleural effusion. Dictated by: Edilia Mendoza MD, PhD on 12/21/2016 at 14:50 Approved by: Edilia Mendoza MD, PhD on 12/21/2016 at 14:51 Assessment & Plan 81 year old male with Congestive heart failure, Coronary artery disease, COPD and chronic respiratory failure, Diabetes who presents to [facility] emergency department complaining of generalized weakness # Acute Kidney Injury on chronic kidney disease, stage III. present on admission. - Worsening kidney function - Etiologies is unclear, DDx cardiorenal syndrome, ATN, AIN - appreciate nephrology consult. will f/u w/ recs - f/u vasculitic workup, hepatitis panel and HIV. - weakness could be due to Uremia but other causes are possible - avoid nephrotoxic insults - Renal ultrasound without acute finding - monitor urine output # Acute Anion gap metabolic acidosis with a lactate level of 5.0. present on admission. resolved. - Likely tissue hypoxia. NO clear infection identified at this time - Resolved # Elevated troponin. Present on admission - denies any CP - f/u pending Echo # Anemia, likely chronic. Present on admission Previous history of Upper GI bleeding from gastritis - will transfuse if Hgb drops < 8 - No clinical signs of active bleeding # Chronic heart failure with possible acute exacerbation. Dyspnea with increasing leg edema. Patient on Torsemide as outpatient - further diuresis per nephrology recs - f/u pending Echo # Thrombocytopenia. Present on admission Likely chronic and likely related to cirrhosis - monitor for bleeding # Diabetes Type 2 - low correction Lispro algorithm - checking A1c 6.7 # Suspected acute pneumonia vs vasculitis process. - no leukocytosis. - no fever - hold off on Abx at this time - f/u clinically # History of chronic obstructive pulmonary disease - on home oxygen. Dispo: 2-4 days VTE Mechanical Devices: Venous Foot Pump Resuscitation Status: CPR: Attempt Resuscitation Kenroy Beatty Dec 22, 2016 16:12
--- NOTE | 2016-12-22 17:20 | DRSVH ---
[facility] [address] [place] [address] Echocardiogram Report Name: EMBER PANDEY WStudy Date: 04/2017 Height: 70 in Hospital Exam Location: [facility] Weight: 178 lb Gender: Male BSA: 2.0 m2 : 1935 Age: 81 yrs BP: 139/57 mmHg Reason For Study: SHORTNESS OF BREATH Ordering Physician: Performed By: Shashi Mares Referring Physician: Geo SCHROEDER Interpretation Summary The left ventricle is mildly dilated. Left ventricular ejection fraction is estimated to be 35 +/- 5%. Flattened septum is consistent with RV pressure/volume overload. Lateral wall is mildly hypokinetic with thinning and akinesis of the majority of the inferior and posterior hough. There is a pacemaker lead in the right ventricle. Right ventricular systolic function is mildly reduced. Both atria are severely dilated. There is mild aortic valve sclerosis. There is mild aortic regurgitation. There is moderate to severe tricuspid regurgitation. The right ventricular systolic pressure is estimated at 47 mmHg assuming a right atrial pressure of 15 mm Hg. Compared to the prior echo exam, there has been an increase in the severity of pulmonary hypertension. There is mild mitral regurgitation. Compared to the prior echo study, there has been an increase in the severity of mitral regurgitation. Procedure: A two-dimensional transthoracic echocardiogram with color flow and Doppler was performed. The study quality was technically good. Comparison is made with the echocardiogram of 06/23/16. The suprasternal notch views were difficult to obtain and are suboptimal in quality. The patient was in normal sinus rhythm during the exam. The patient had occasional PACs during the exam. Left Ventricle: There is normal left ventricular wall thickness. The left ventricle is mildly dilated. Left ventricular ejection fraction is estimated to be 35 +/- 5%. There has been no significant change since the previous exam. Flattened septum is consistent with RV pressure/volume overload. Lateral wall is mildly hypokinetic with thinning and akinesis of the majority of the inferior and posterior hough. Right Ventricle: There is a pacemaker lead in the right ventricle. The right ventricle is borderline dilated. Right ventricular systolic function is mildly reduced. Atria: Both atria are severely dilated. The interatrial septum is intact with no evidence for an atrial septal defect. Mitral Valve: The mitral valve is normal in structure and function. There is mild mitral annular calcification. There is mild mitral regurgitation. Compared to the prior echo study, there has been an increase in the severity of mitral regurgitation. Aortic Valve: The aortic valve is trileaflet. The aortic valve opens well. There is discrete nodular thickening of the non- coronary cusp. There is mild aortic valve sclerosis. There is mild aortic regurgitation. Tricuspid Valve: The tricuspid valve leaflets are thin and pliable. There is moderate to severe tricuspid regurgitation. The right ventricular systolic pressure is estimated at 47 mmHg assuming a right atrial pressure of 15 mm Hg. Compared to the prior echo exam, there has been an increase in the severity of pulmonary hypertension. Pulmonic Valve: The pulmonic valve is normal in structure and function. There is trace pulmonic regurgitation. Great Vessels: The aortic root is normal size. The ascending aorta is mildly enlarged. The pulmonary artery is normal size. The IVC is dilated (diameter is greater than 2.1 cm) and it collapses less than 50% with a sniff. This suggests a high right atrial pressure of 15 mm Hg. Pericardium/ Pleura There is no pericardial effusion. There is a large right-sided pleural effusion. Incidental finding of abdominal ascites is noted. MMode/2D Measurements & Calculations LVIDd: 6.0 cm LA dimension: 4.3 cm RA long axis: 6.5 cm LVOT diam LVIDs: 5.4 cm FS: 9.8 % LA A2 area: 30.9 cm RA area: 31.9 cm AoV Opening EPSS: 1.9 cm LA A4 area: 26.8 cm RA vol: 133.1 ml IVSd: 1.0 cm LA length (vol): 6.9 cm RA : 67.0 ml/m2 Ao root diam LVPWd: 0.98 cm LA vol: 101.7 ml LA vol index Aortic Jxn asc Aorta IVC diam: 2.8 cm Diam: 3.5 cm EDV(MOD-sp2) LV barlow. diameter/BSA LV sys. diameter/BSA RVD1 (basal) : 243.2 ml (cm/m^2): 3.0 (cm/m^2): 2.7 : 4.5 cm RVD2 (mid) : 3.9 cm Doppler Measurements & Calculations Ao V2 max: 171.8 cm/secMV E max vince MV E/A: 1.4 TR max vince Ao max P.8 mmHg : 95.4 cm/sec Med Peak E' Vince : 282.2 cm/sec Ao mean P.0 mmHg MV A max vince TR max PG LVOT Max Vince : 67.2 cm/sec E/E' med: 33.1 : 31.9 mmHg : 106.0 cm/sec Lat Peak E' Vince PA V2 max : 50.3 cm/sec ANDRADE(I,D): 2.5 cm E/E' lat: 28.3 PA mean PG sev ratio: 0.61 E/e' average : 0.70 mmHg AI P1/2t: 382.1 msec PA Accel Time AI dec slope MV A dur : 0.14 sec : 250.5 cm/s2c : 0.18 sec MV dec time: 0.16 sec Ao V2 mean LV V1 max PG PA V2 mean : 130.8 cm/sec : 40.9 cm/sec Ao V2 VTI: 46.4 cmLV V1 VTI PA pr(Accel) : 28.2 cm : 15.8 mmHg ANDRADE(V,D): 2.6 cm2 ANDRADE indexed to BSA (cm^2/m^2): 1.3 Electronically signed by: Weston Sanchez on Reading Physician:12/22/2016 01:07 PM
[2016-12-22 17:31] LABS: APPEARANCE,URINE CLEAR (CLEAR,HAZY); COLOR,URINE YELLOW (YELLOW); OCCULT BLOOD,URINE TRACE (NEGATIVE); PH,URINE 5.5 (5.0-8.0); UROBILINOGEN,URINE NORMAL (NORMAL)
[2016-12-23] VITALS (8 sets, daily range): BP systolic 138–159; BP diastolic 54–67; PULSE 47–67; RESP 18–20; O2SAT 96–100
[2016-12-23] MEDS: Heparin 5,000 Unit/mL Inj SUBQ SCH ×3 (01:14→18:39)
[2016-12-23 07:24] LABS: BASOPHILS % (AUTO) 0.1 % (0-3); EOSINOPHILS % (AUTO) 1.5 % (0-5); MONOCYTES % (AUTO) 5.5 % (4-12); Mean Corpuscular Hemoglobin 27.3 pg (27.0-35.0); Mean Corpuscular Volume 90.2 fL (81-100); NEUTROPHILS % (AUTO) 79.7 % (40-74); Platelet Count 131 bil/L (150-400)
[2016-12-23 07:39] LABS: Phosphorus 5.4 mg/dL (2.5-4.9)
[2016-12-23] MEDS: Insulin LISPRO 300 Unit/3 mL Inj SUBQ SCH ×4 (08:00→23:20)
--- NOTE | 2016-12-23 11:34 | PCM.PNNEPH ---
Subjective Date of Service Dec 23, 2016 Subjective Serum creatinine continues to climb. He is feeling weak. LE swelling remains swollen. Exam Vital Signs Vital Sign - Last Date Time Temp Pulse Resp B/P Pulse Ox O2 Delivery O2 Flow Rate FiO2 12/23/16 09:30 36.6 67 18 151/65 96 Nasal Cannula 4.00 Intake and Output 12/22/16 12/22/16 12/23/16 Cumulative From/Thru 15:00 23:00 07:00 12/21/16 12:55 - 12/23/16 06:52 Intake Total 600 ml 711 ml 200 ml 1511 ml Output Total 400 ml 450 ml 400 ml 1250 ml Balance 200 ml 261 ml -200 ml 261 ml Intake Oral 600 ml 711 ml 200 ml 1511 ml Output Urine Total 400 ml 450 ml 400 ml 1250 ml # Bowel Movements 1 1 1 3 Exam General appearance: Awake, alert, oriented x3, in no acute distress. HEENT: Mild pallor. No jaundice. Positive for JVD. No lymphadenopathy. No thyroid enlargement. Heart: Irregular rhythm. Soft systolic murmur noted. Defibrillator in place on the left upper chest. Scar is dry, clean, intact. Lungs: rales at bases, No wheezing. No rhonchi. Abdomen: Soft, nontender, nondistended. No hepatosplenomegaly. Extremities: 2+ edema on the lower extremities. Lab and Diagnostics Result Diagram: 12/23/16 0635 12/23/16 0635 X-Rays, CTs and MRIs X-RAY CHEST ONE VIEW, PORTABLE 12/21/16 IMPRESSION: Patchy airspace opacity in the right lung base suspicious for pneumonia. A small right-sided pleural effusion. Dictated by: Edilia Mendoza MD, PhD on 12/21/2016 at 14:50 Approved by: Edilia Mendoza MD, PhD on 12/21/2016 at 14:51 Plan Impression ASSESSMENT: 1. Acute kidney injury on chronic kidney disease, stage III. - Worsening kidney function - Etiologies is unclear, DDx cardiorenal syndrome and ATN, however we need to rule out vasculitis (pulmonary-renal syndrome) - vasculitic workup, hepatitis panel and HIV-ordered. - If kidney function is getting worse will arrange for renal replacement therapy. 2. Acute on chronic biventricular systolic CHF with pulm hypertension Echo: EF 35 +/- 5%. Flattened septum is consistent with RV pressure/volume overload. Lateral wall is mildly hypokinetic with thinning and akinesis of the majority of the inferior and posterior hough. There is a pacemaker lead in the right ventricle. Right ventricular systolic function is mildly reduced. Both atria are severely dilated. There is mild aortic valve sclerosis. There is mild aortic regurgitation. There is moderate to severe tricuspid regurgitation. The right ventricular systolic pressure is estimated at 47 mmHg assuming a right atrial pressure of 15 mm Hg. 3. Elevated serum troponin in the setting of renal insufficiency. 4. Suspected RLL PNA vs vasculitis process. 5. History of chronic obstructive pulmonary disease, on home oxygen. 6. Normocytic anemia. Likely due to anemia of chronic disease 6. Recommend to repeat echocardiogram. 7. History of heart failure, reduced ejection fraction, status post AICD. Plan: IV lasix 80 mg Q 12 hr, add metolazone 5 mg x 1. rec cardiology consultation. Marisa Soler MD Dec 23, 2016 11:34
[2016-12-23] MEDS: Furosemide 10 mg/mL 10 mL Inj IVPUSH SCH ×2 (12:45→23:20)
--- NOTE | 2016-12-23 15:49 | PCM.PNMED ---
Subjective Date of Service Dec 23, 2016 Subjective was having some chest pressure earlier but denies any now. no n/v. Exam Vital Signs Vital Sign - Last Date Time Temp Pulse Resp B/P Pulse Ox O2 Delivery O2 Flow Rate FiO2 12/23/16 12:46 66 12/23/16 09:30 36.6 18 151/65 96 Nasal Cannula 4.00 Intake and Output 12/22/16 12/22/16 12/23/16 Cumulative From/Thru 15:00 23:00 07:00 12/21/16 12:55 - 12/23/16 06:52 Intake Total 600 ml 711 ml 200 ml 1511 ml Output Total 400 ml 450 ml 400 ml 1250 ml Balance 200 ml 261 ml -200 ml 261 ml Intake Oral 600 ml 711 ml 200 ml 1511 ml Output Urine Total 400 ml 450 ml 400 ml 1250 ml # Bowel Movements 1 1 1 3 Exam General: Alert, Cooperative, No acute Distress Eyes: PERRLA, Scleral Anicteric Mouth: Mouth Normal, Mucous Membranes Moist/[place] Neck: Supple Chest & Lungs: Clear to auscultation bilat Cardiovascular: Regular Rate/Rhythm Pulses: Dorsalis Pedi (present and equal) Abdomen: Soft, Non-tender, Non-distended, Normoactive bowel tones. Musculoskeletal: Unremarkable. Normal range of motion, no swollen or erythematous joints Extremities: 3+ pitting edema, no cyanosis, no clubbing. Skin: No rashes. Neurological: Grossly neurologically intact IVs and Medications Medications Reviewed: Medications were reviewed in detail Lab and Diagnostics Result Diagram: 12/23/1635 12/23/1635 X-Rays, CTs and MRIs X-RAY CHEST ONE VIEW, PORTABLE 12/21/16 IMPRESSION: Patchy airspace opacity in the right lung base suspicious for pneumonia. A small right-sided pleural effusion. Dictated by: Edilia Mendoza MD, PhD on 12/21/2016 at 14:50 Approved by: Edilia Mendoza MD, PhD on 12/21/2016 at 14:51 Assessment & Plan 81 year old male with Congestive heart failure, Coronary artery disease, COPD and chronic respiratory failure, Diabetes who presents to [facility] emergency department complaining of generalized weakness # Acute Kidney Injury on chronic kidney disease, stage III. present on admission. ongoing - Worsening kidney function - Etiologies is unclear, DDx cardiorenal syndrome, ATN, AIN - appreciate nephrology consult. will f/u w/ recs - f/u vasculitic workup, hepatitis panel and HIV. - weakness could be due to Uremia but other causes are possible - avoid nephrotoxic insults - Renal ultrasound without acute finding - monitor urine output # Acute Anion gap metabolic acidosis with a lactate level of 5.0. present on admission. resolved. - Likely tissue hypoxia. NO clear infection identified at this time - Resolved # Elevated troponin. Present on admission - Echo 12/22/16: EF 35 +/- 5%. "Flattened septum is consistent with RV pressure/ volume overload. Lateral wall is mildly hypokinetic with thinning and akinesis of the majority of the inferior and posterior hough." - new chest discomfort early this morning possibly due to worsening anemia. Did not have CP before presentation - transfuse PRBC and consider further cardiology consult if symptoms reoccur # Anemia, likely chronic. Present on admission. - worsening anemia without any obvious source of active bleeding - Previous history of Upper GI bleeding from gastritis - per discussion with nephrology consult today will transfuse only one unit of PRBC slowly and f/u # Chronic systolic heart failure with possible acute exacerbation. Dyspnea with increasing leg edema. Patient on Torsemide as outpatient - further diuresis per nephrology recs # Thrombocytopenia. Present on admission Likely chronic and likely related to cirrhosis - monitor for bleeding # Diabetes Type 2 - low correction Lispro algorithm - HgA1c 6.7 # Suspected acute pneumonia vs vasculitis process. - no leukocytosis. - no fever - hold off on Abx at this time - f/u clinically # History of chronic obstructive pulmonary disease - on home oxygen. Dispo: 2-4 days pending above issues. VTE Mechanical Devices: Venous Foot Pump Resuscitation Status: CPR: Attempt Resuscitation Time spent 40 min Kenroy Beatty Dec 23, 2016 15:49
--- NOTE | 2016-12-23 17:46 | DRSVH ---
PROCEDURE: US VENOUS LEG DUPLEX BILATERAL INDICATIONS: edema TECHNIQUE: Real-time imaging, as well as color and pulse Doppler interrogation, were performed of the deep veins of both legs from the inguinal ligament to the popliteal fossa. COMPARISON: None. FINDINGS: The deep veins are normally compressible, and free of intraluminal thrombus. Color and pu lse Doppler demonstrate normal phasic intravascular flow. There is normal augmentation response to d istal compression maneuver. IMPRESSION: No evidence of bilateral lower extremity DVT. Dictated by: Judith Snyder M.D. on 12/23/2016 at 17:44 Approved by: Judtih Snyder M.D. on 12/23/2016 at 17:45
[2016-12-24] VITALS (11 sets, daily range): BP systolic 136–170; BP diastolic 63–76; PULSE 56–64; RESP 18–20; O2SAT 93–98
[2016-12-24] MEDS: Heparin 5,000 Unit/mL Inj SUBQ SCH ×4 (02:38→23:39)
[2016-12-24 06:44] LABS: BASOPHILS % (AUTO) 0.1 % (0-3); MONOCYTES % (AUTO) 6.3 % (4-12); Mean Corpuscular Hemoglobin 28.2 pg (27.0-35.0); Mean Corpuscular Volume 90.4 fL (81-100); NEUTROPHILS % (AUTO) 80.5 % (40-74); Platelet Count 128 bil/L (150-400)
[2016-12-24 07:09] LABS: Magnesium 1.8 mg/dL (1.6-2.6)
[2016-12-24 07:53] LABS: TROPONIN T 0.186 ug/L (0.0-0.011)
[2016-12-24] MEDS: Insulin LISPRO 300 Unit/3 mL Inj SUBQ SCH ×4 (08:00→22:00)
--- NOTE | 2016-12-24 11:11 | PCM.PNNEPH ---
Subjective Date of Service Dec 24, 2016 Subjective He is doing about the same, s/p blood transfusion Hb 8.0. Exam Vital Signs Vital Sign - Last Date Time Temp Pulse Resp B/P Pulse Ox O2 Delivery O2 Flow Rate FiO2 12/24/16 09:45 Supplement Oxygen 12/24/16 09:17 36.9 64 19 144/63 94 4.00 Intake and Output 12/23/16 12/23/16 12/24/16 Cumulative From/Thru 15:00 23:00 07:00 12/21/16 12:55 - 12/24/16 05:25 Intake Total 1060 ml 300 ml 2871 ml Output Total 850 ml 2100 ml Balance 210 ml 300 ml 771 ml Intake Oral 1060 ml 2571 ml Packed Cells 300 ml 300 ml Output Urine Total 850 ml 2100 ml # Bowel Movements 1 4 Exam General appearance: Awake, alert, oriented x3, in no acute distress. HEENT: Mild pallor. No jaundice. Positive for JVD. No lymphadenopathy. No thyroid enlargement. Heart: Irregular rhythm. Soft systolic murmur noted. Defibrillator in place on the left upper chest. Scar is dry, clean, intact. Lungs: rales at bases, No wheezing. No rhonchi. Abdomen: Soft, nontender, nondistended. No hepatosplenomegaly. Extremities: 2+ edema on the lower extremities. Lab and Diagnostics Result Diagram: 12/24/16 0555 12/24/16 0555 X-Rays, CTs and MRIs X-RAY CHEST ONE VIEW, PORTABLE 12/21/16 IMPRESSION: Patchy airspace opacity in the right lung base suspicious for pneumonia. A small right-sided pleural effusion. Dictated by: Edilia Mendoza MD, PhD on 12/21/2016 at 14:50 Approved by: Edilia Mendoza MD, PhD on 12/21/2016 at 14:51 Plan Impression 1. Acute kidney injury on chronic kidney disease, stage III. - Worsening kidney function - Likely due to cardiorenal syndrome and ATN, however we need to rule out vasculitis (pulmonary-renal syndrome) - Dialysis discussed with patient. If no improvement, will arrange for HD and sadaf cath in am. 2. Acute on chronic biventricular systolic CHF with pulm hypertension Echo: EF 35 +/- 5%. Flattened septum is consistent with RV pressure/volume overload. Lateral wall is mildly hypokinetic with thinning and akinesis of the majority of the inferior and posterior hough. There is a pacemaker lead in the right ventricle. Right ventricular systolic function is mildly reduced. Both atria are severely dilated. There is mild aortic valve sclerosis. There is mild aortic regurgitation. There is moderate to severe tricuspid regurgitation. The right ventricular systolic pressure is estimated at 47 mmHg assuming a right atrial pressure of 15 mm Hg. 3. Elevated serum troponin in the setting of renal insufficiency. 4. Suspected RLL PNA vs vasculitis process. 5. History of chronic obstructive pulmonary disease, on home oxygen. 6. Normocytic anemia. Likely due to anemia of chronic disease s/p blood transfusion. 7. LE edema, Venous Doppler showed no evidence of DVT. Plan: IV lasix 80 mg Q 12 hr. BMP, PT, INR in am. Marisa Soler MD Dec 24, 2016 11:11
--- NOTE | 2016-12-24 11:39 | NUR ---
Palliative Care Palliative Care received verbal order from Dr Dangelo 12/24/16 to assist with goals of care. Patient is an 81 year old man with CHF, CAD, COPD, and chronic respiratory failure. He presented to the ED complaining of generalized weakness. He was admitted 12/21/16 and is receiving care for acute kidney injury (stage III chronic kidney disease). Patient lives at home alone. He had been the primary caregiver for his up until recently. His is now at a local SNF. Sandhyaluana Long (daughter) [phone] Palliative Care to follow. Debbie Beauchamp
[2016-12-24] MEDS: Furosemide 10 mg/mL 10 mL Inj IVPUSH SCH ×2 (11:46→23:37)
--- NOTE | 2016-12-24 13:36 | NUR ---
NUTRITION ASSESSMENT: ASSESS: 81 YO male admitted for acute on chronic stage III renal failure. Pt may require dialysis tomorrow if no improvement with renal issues. Palliative care to discuss goal of care with pt. Pt currently on a general diet as pt signed a diet against medical advice form as pt did not want to follow the renal/diabetic/heart healthy diet. 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 failure, CAD s/p CABG, HTN, upper GI bleed. LABS: Reviewed. BUN 84, Cr 5.62, Glu 161, Alk Phos 310, Alb 2.6. MEDS: Reviewed. GI: BM x 2 (12/23) CURRENT WT: 81.1 kg. Admit wt: 82.8 kg. DIET: General. Po Avg x 3 days is 50% of meals. EST. NEEDS (Acute/chronic kidney stage III): 8205-2235 kcals (25-35 kcals/kg BW) 65-85 g protein (0.8-1.0 g/kg BW) - if pt is not on dialysis 100-125 g protein (1.2-1.5 g/kg BW) if pt is on dialysis NUTRITION DIAGNOSIS: 1.) Increased nutrient needs related to increased demand for nutrients as evidenced by acute on chronic kidney disease. NUTRITION INTERVENTION: 1.) Will add Suplena BID to try to improve po intake. However, as pt has signed diet against medical advice, ensure could be substituted for Suplena if pt desires. MONITOR / EVAL: PO intake, labs, nutritional status. Follow per moderate nutritional risk guidelines.
[2016-12-24 14:10] LABS: Antiproteinase 3 (PR-3) Abs <3.5 U/mL (0.0-3.5); Perinuclear (P-ANCA) <1:20 titer (Neg:<1:20)
--- NOTE | 2016-12-24 14:17 | PCM.PNMED ---
Subjective Date of Service Dec 24, 2016 Subjective s/p 1 unit prbc yesteday, no f/c/sob - Cr rising today, nephrology following - diuresing, vasculitis w/u - add cardiology consult today, with possible repeat echo Exam Vital Signs Vital Sign - Last Date Time Temp Pulse Resp B/P Pulse Ox O2 Delivery O2 Flow Rate FiO2 12/24/16 06:55 61 12/24/16 05:25 37.1 20 165/71 12/24/16 05:17 98 Nasal Cannula 4.00 Intake and Output 12/23/16 12/23/16 12/24/16 Cumulative From/Thru 15:00 23:00 07:00 12/21/16 12:55 - 12/24/16 05:25 Intake Total 1060 ml 300 ml 2871 ml Output Total 850 ml 2100 ml Balance 210 ml 300 ml 771 ml Intake Oral 1060 ml 2571 ml Packed Cells 300 ml 300 ml Output Urine Total 850 ml 2100 ml # Bowel Movements 1 4 Exam General: Alert, Cooperative, No acute Distress Eyes: PERRLA, Scleral Anicteric Mouth: Mouth Normal, Mucous Membranes Moist/[place] Neck: Supple Chest & Lungs: Clear to auscultation bilat Cardiovascular: Regular Rate/Rhythm Pulses: Dorsalis Pedi (present and equal) Abdomen: Soft, Non-tender, Non-distended, Normoactive bowel tones. Musculoskeletal: Unremarkable. Normal range of motion, no swollen or erythematous joints Extremities: 3+ pitting edema, no cyanosis, no clubbing. Skin: No rashes. Neurological: Grossly neurologically intact IVs and Medications Medications Reviewed: Medications were reviewed in detail Lab and Diagnostics Result Diagram: 12/24/16 0555 12/24/1655 X-Rays, CTs and MRIs X-RAY CHEST ONE VIEW, PORTABLE 12/21/16 IMPRESSION: Patchy airspace opacity in the right lung base suspicious for pneumonia. A small right-sided pleural effusion. Dictated by: Edilia Mendoza MD, PhD on 12/21/2016 at 14:50 Approved by: Edilia Mendoza MD, PhD on 12/21/2016 at 14:51 Assessment & Plan 81 year old male with Congestive heart failure, Coronary artery disease, COPD and chronic respiratory failure, Diabetes who presents to [facility] emergency department complaining of generalized weakness # Acute Kidney Injury on chronic kidney disease, stage III. present on admission. ongoing - Worsening kidney function --> likely fem HD cath placement tomorrow per nephrology for possibel HD - Etiologies is unclear, DDx cardiorenal syndrome, ATN, AIN - appreciate nephrology consult. will f/u w/ recs - f/u vasculitic workup, hepatitis panel and HIV. - weakness could be due to Uremia but other causes are possible - avoid nephrotoxic insults - Renal ultrasound without acute finding - monitor urine output # Acute Anion gap metabolic acidosis with a lactate level of 5.0. present on admission. resolved. - Likely tissue hypoxia. NO clear infection identified at this time - Resolved # Chronic systolic heart failure with possible acute exacerbation. Dyspnea with increasing leg edema. Patient on Torsemide as outpatient - further diuresis per nephrology recs - Lasix 80mg q12 - cardiology consulted to eval echo findings/med optimization # Elevated troponin. Present on admission - Echo 12/22/16: EF 35 +/- 5%. "Flattened septum is consistent with RV pressure/ volume overload. Lateral wall is mildly hypokinetic with thinning and akinesis of the majority of the inferior and posterior hough." - new chest discomfort yesterday possibly due to worsening anemia. Did not have CP before presentation - transfuse PRBC and consider further cardiology consult if symptoms reoccur - ekg if having cp sx # Anemia, likely chronic. Present on admission. - worsening anemia without any obvious source of active bleeding - Previous history of Upper GI bleeding from gastritis - per discussion with nephrology consult s/p transfuse only one unit of PRBC slowly (12/23) # Thrombocytopenia. Present on admission Likely chronic and likely related to cirrhosis - monitor for bleeding # Diabetes Type 2 - low correction Lispro algorithm - HgA1c 6.7 # Suspected acute pneumonia vs vasculitis process. - no leukocytosis. - no fever - hold off on Abx at this time - f/u clinically # History of chronic obstructive pulmonary disease - on home oxygen. Dispo: 2-4 days pending above issues. Pain Evaluation: Adequate Pain Control GI Prophylaxis: H2 dylon VTE Prophylaxis: Sub-Q Heparin (Unfractionated) VTE Mechanical Devices: Venous Foot Pump Resuscitation Status: CPR: Attempt Resuscitation Time spent 40 minutes spent with eval/mgmt and coordination of care Neymar Dangelo DO Dec 24, 2016 08:13
[2016-12-24] MEDS: Famotidine Inj 20 MG in IV Premix 1 EACH IV SCH ×2 (14:20→15:32)
--- NOTE | 2016-12-24 18:00 | PCM.CHPCAR ---
Consult Subjective Date of service Dec 24, 2016 Date of admit Dec 21, 2016 at 17:24 Provider Requesting Consult Primary Care Physician Primary Care Physician: Miguel Chief Complaint Leg edema, fatigue and collapse History of Present Illness Patient is an 81-year-old male with history of CAD status post CABG, hypertension, CHF status post AICD, diabetes, COPD, PVD, stage IV colon cancer, upper GI bleed. Patient states over the last 2-3 weeks he has noticed increasing edema in his legs with associated shortness of breath and some dizziness. He started noticing in the last week or two his urine output was decreasing. Claims during this time he had upper respiratory infection symptoms i.e. nasal congestion, cough with productive green sputum. He denies fever or chills though he did metastases he has been having progressively worsening fatigue. His appetite is otherwise been good.. He does admit he has been having occasional sharp left-sided fleeting chest pains that are not associated with activity. Claims nothing made them better or worse. Claims he has been compliant with his medications but noticed the torsemide he usually takes was not helping with his edema. On December 21 the day of his admission claims he was feeling poorly was trying to walk to his car when he collapsed to his knees. He denies any syncope. She claims she has not been having any orthopnea or PND. He denies sleep apnea. Review of Systems Review of Systems Review of systems is otherwise negative or benign benign other than mentioned above. PMH Past Medical History #CAD status post CABG #CHF status post AICD #Hypertension #Diabetes mellitus #COPD on home O2 #Colon cancer stage IV #Peripheral vascular disease #Upper GI bleed Past Surgical History #Right-sided colectomy #CABG 1996 #AICD #Cholecystectomy #Back surgery #Angioplasty of right femoral profunda Bedside Blood Glucose: 147 Scheduled Allopurinol (Allopurinol) 100 Mg Tablet 300 MG PO DAILY (Reported) Atorvastatin (Lipitor) 10 Mg Tab 10 MG PO HS (Reported) Carvedilol (Coreg) 25 Mg Tablet 25 MG PO BID (Reported) Cholecalciferol (Vitamin D3) (Vitamin D3) 1,000 Unit Tab.chew 3,000 UNIT PO DAILY (Reported) Insulin Aspart (NovoLOG U100 Insulin Vial) 100 U/Ml U 5-7 UNIT SUBQ TIDWM ( Reported) Only take with meals if BG > 140 mg/dL prior to meal Insulin Glargine (Lantus U100 Insulin Vial) 100 Unit/Ml Vial 25-40 UNIT SUBQ HS (Reported) *On avg takes 25-30 units, see sliding scale below Sliding Scale: BG 150-200 : 25 units BG 201-250: 30 units BG 251-300: 35 units BG 301-350: 40 units Ipratropium/Albuterol Sulfate (Iprat-Albut 0.5-3(2.5) mg/3 mL Inhalant Soln) 3 Ml Ampul.neb 3 ML IH Q6 Lisinopril (Lisinopril) 10 Mg Tablet 10 MG PO DAILY (Reported) Torsemide (Torsemide) 20 Mg Tablet 40 MG PO DAILY (Reported) Scheduled PRN Albuterol HFA (Proair HFA) 8.5 Gm Hfa.aer.ad 2 PUFFS INHALATION Q4H PRN PRN For Shortness of Breath (Reported) Nitroglycerin (Nitrolingual) 12 Gm [place] 0.4 MG SL prn PRN PRN For Chest Pain ( Reported) Discontinued Medications Aspirin Chew (Aspirin Chew) 81 Mg Chew 81 MG PO DAILY Aspirin Chew (Aspirin Chew) 81 Mg Chew 81 MG PO DAILY (Reported) Atorvastatin (Lipitor) 10 Mg Tab 10 MG PO DAILY (Reported) Cholecalciferol (Vitamin D3) (Vitamin D3) 2,000 Unit Capsule 3,000 UNIT PO DAILY (Reported) Furosemide (Lasix) 40 Mg Tablet 40-80 MG PO DAILY (Reported) Current Inpatient Medications Current Medications Furosemide 80 mg Q12H IVPUSH Last administered on 12/23/16 23:20; Admin Dose 80 MG; Start 12/23/16 at 11:30; Stop 12/24/16 at 11:12; Status DC Furosemide 80 mg 80 mg Q12H IVPUSH Last administered on 12/24/16 11:46; Admin Dose 80 MG; Start 12/24/16 at 11:30; Stop 12/25/16 at 23:31 Famotidine/Sodium Chloride/Premix 50 ml @ 100 mls/hr Q12 IV Last administered on 12/24/16 14:20; Admin Dose 100 MLS/HR; Start 12/24/16 at 14:15 Allergies: Coded Allergies: Penicillins (Verified Allergy, Severe, 03/30/16) metformin (Verified Allergy, Severe, 03/30/16) tuberculin, purified protein deriva (Verified Allergy, Unknown, 03/30/16) Family History Family History Father at age 69 secondary to an accident Mother [place] age 85. Social History Hx Alcohol Use: Yes (in the past, but not now)Alcoholic Drinks Per Day: 0Hx Substance Use: NoHx Tobacco Use: Yes Smoking Status: Former Smoker Living Arrangement: with Family ( has been in poor health and recently placed at [facility]) Alone Exam Vital Signs Vital Sign - Last Date Time Temp Pulse Resp B/P Pulse Ox O2 Delivery O2 Flow Rate FiO2 12/24/16 16:47 36.8 56 18 136/76 93 Nasal Cannula 4.00 Intake and Output 12/23/16 12/23/16 12/24/16 Cumulative From/Thru 15:00 23:00 07:00 12/21/16 12:55 - 12/24/16 05:25 Intake Total 1060 ml 300 ml 2871 ml Output Total 850 ml 2100 ml Balance 210 ml 300 ml 771 ml Intake Oral 1060 ml 2571 ml Packed Cells 300 ml 300 ml Output Urine Total 850 ml 2100 ml # Bowel Movements 1 4 Objective #General- patient declined nearly supine resting quietly in bed in no apparent distress #HEENT- patient has postnasal drip buccal mucosa is moist eyes are clear to a symmetrical #Neck- supple without adenopathy or thyromegaly #Chest- chest wall is symmetrical without retractions. He has bibasilar crackles with coarse rales apparent right posterior lung field lower and mid #Cardiovascular- heart rate is regular, S3 gallop, positive JVD, 3+ pitting edema of lower extremities bilaterally up his legs. #GI- abdomen is soft nontender without significant distention. No apparent mass. # deferred #Integument- no obvious rash or concerning lesions. #Psychiatric- the patient appears in good spirits despite his unfortunate situation. #Neurologic- alert and oriented 4, appears somewhat fatigued (was having blood transfusion overnight did not sleep much) Lab and Diagnostics Result Diagram: 12/24/16 0555 12/24/16 0555 X-Rays, CTs and MRIs Echocardiogram Interpretation Summary The left ventricle is mildly dilated.Left ventricular ejection fraction is estimated to be 35 +/- 5%. flattened septum is consistent with RV pressure/volume overload. Lateral wall is mildly hypokinetic with thinning and akinesis of the majority of the inferior and posterior hough. There is a pacemaker lead in the right ventricle. Right ventricular systolic function is mildly reduced. Both atria are severely dilated. There is mild aortic valve sclerosis. There is mild aortic regurgitation. There is moderate to severe tricuspid regurgitation. The right ventricular systolic pressure is estimated at 47 mmHg assuming a right atrial pressure of 15 mm Hg. Compared to the prior echo exam, there has been an increase in the severity of pulmonary hypertension. There is mild mitral regurgitation. Compared to the prior echo study, there has been an increase in the severity of mitral regurgitation. CXR IMPRESSION: Patchy airspace opacity in the right lung base suspicious for pneumonia. A small right-sided pleural effusion. US RENAL SONOGRAM IMPRESSION: 1. No obstruction. 2. Minimal appearance of right upper quadrant and lower quadrant fluid. Ultrasound of venous leg duplex bilateral No evidence of bilateral lower extremity DVT. 12-lead ECG Paced rhythm Assessment & Plan Assessment Patient is an 81-year-old male with history of CAD status post CABG, hypertension, CHF status post AICD, diabetes, COPD, PVD, stage IV colon cancer, upper GI bleed. Patient states over the last 2-3 weeks he has noticed increasing edema in his legs with associated shortness of breath and some dizziness. He started noticing in the last week or two his urine output was decreasing. Claims during this time he had upper respiratory infection symptoms i.e. nasal congestion, cough with productive green sputum. He denies fever or chills though he did metastases he has been having progressively worsening fatigue. His appetite is otherwise been good.. He does admit he has been having occasional sharp left-sided fleeting chest pains that are not associated with activity. Claims nothing made them better or worse. Claims he has been compliant with his medications but noticed the torsemide he usually takes was not helping with his edema. On December 21 the day of his admission claims he was feeling poorly was trying to walk to his car when he collapsed to his knees. He denies any syncope. She claims she has not been having any orthopnea or PND. He denies sleep apnea. In the hospital his pro-calcitonin level is elevated and x-ray suggests probable pneumonia in his right lower lobe. Patient denies any history of renal disease although presented in acute renal failure. #KRISTAL-etiology unclear at this time, nephrology is evaluating patient. #CHF-vision is significantly volume overloaded. #Anemia patient received one unit of blood overnight. Etiology possibly related to ongoing kidney disease. #Chest pain-atypical in nature. #Diabetes-monitoring treat per hospitalist #Pneumonia versus vasculitis #COPD Pain Evaluation: Adequate Pain Control VTE Prophylaxis: Sub-Q Heparin (Unfractionated) VTE Mechanical Devices: Venous Foot Pump Resuscitation Status: CPR: Attempt Resuscitation Neftali Shipley PA-C Dec 24, 2016 18:00
[2016-12-25] VITALS (9 sets, daily range): BP systolic 140–165; BP diastolic 62–73; PULSE 55–74; RESP 17–20; O2SAT 95–98
[2016-12-25] MEDS: Insulin LISPRO 300 Unit/3 mL Inj SUBQ SCH ×4 (07:41→22:45)
[2016-12-25] MEDS: Famotidine Inj 20 MG in IV Premix 1 EACH IV SCH ×2 (07:49→21:16)
[2016-12-25] MEDS: Heparin 5,000 Unit/mL Inj SUBQ SCH ×2 (07:50→17:32)
[2016-12-25 08:37] LABS: BASOPHILS % (AUTO) 0.2 % (0-3); EOSINOPHILS % (AUTO) 1.8 % (0-5); MONOCYTES % (AUTO) 5.5 % (4-12); Mean Corpuscular Hemoglobin 28.2 pg (27.0-35.0); NEUTROPHILS % (AUTO) 80.3 % (40-74); Platelet Count 122 bil/L (150-400)
--- NOTE | 2016-12-25 10:04 | NUR ---
Palliative Care Order for Palliative Care was received yesterday 12/24/[address] Dangelo. However, decision made per Dr Mcintosh not to become involved with case as patient would like to remain full code and receive treatment. Debbie Beauchamp
--- NOTE | 2016-12-25 10:27 | PCM.PNMED ---
Subjective Date of Service Dec 25, 2016 Subjective - Pt seen and examined this morning. AAO x 3 - Not in acute distress. - s/p 1 PRBC on 12/23 Hct stable Exam Vital Signs Vital Sign - Last Date Time Temp Pulse Resp B/P Pulse Ox O2 Delivery O2 Flow Rate FiO2 12/25/16 09:20 36.9 65 20 155/67 95 Nasal Cannula 4.00 Intake and Output 12/24/16 12/24/16 12/25/16 Cumulative From/Thru 15:00 23:00 07:00 12/21/16 12:55 - 12/25/16 05:17 Intake Total 200 ml 972 ml 4043 ml Output Total 750 ml 1375 ml 4225 ml Balance -550 ml -403 ml -182 ml Intake Oral 200 ml 972 ml 3743 ml IV Total 0 ml 0 ml Packed Cells 300 ml Output Urine Total 750 ml 1375 ml 4225 ml # Voids 3 3 # Bowel Movements 0 1 5 Exam General: Alert, Cooperative, No acute Distress Eyes: PERRLA, Scleral Anicteric Mouth: Mouth Normal, Mucous Membranes Moist/[place] Neck: Supple Chest & Lungs: Clear to auscultation bilat Cardiovascular: Regular Rate/Rhythm Pulses: Dorsalis Pedi (present and equal) Abdomen: Soft, Non-tender, Non-distended, Normoactive bowel tones. Musculoskeletal: Unremarkable. Normal range of motion, no swollen or erythematous joints Extremities: 3+ pitting edema, no cyanosis, no clubbing. Skin: No rashes. Neurological: Grossly neurologically intact IVs and Medications Medications Reviewed: Medications were reviewed in detail Lab and Diagnostics Result Diagram: 12/25/1630 12/25/16 0830 X-Rays, CTs and MRIs X-RAY CHEST ONE VIEW, PORTABLE 12/21/16 IMPRESSION: Patchy airspace opacity in the right lung base suspicious for pneumonia. A small right-sided pleural effusion. Dictated by: Edilia Mendoza MD, PhD on 12/21/2016 at 14:50 Approved by: Edilia Mendoza MD, PhD on 12/21/2016 at 14:51 Assessment & Plan 81 year old male with Congestive heart failure, Coronary artery disease, COPD and chronic respiratory failure, Diabetes who presents to [facility] emergency department complaining of generalized weakness # Acute Kidney Injury on chronic kidney disease, stage III. present on admission. ongoing - Worsening kidney function --> likely fem HD cath placement tomorrow per nephrology for possibel HD - Etiologies is unclear, DDx cardiorenal syndrome, ATN, AIN - appreciate nephrology consult. Possible HD catheter placement later today. - f/u vasculitic workup, hepatitis panel and HIV. - weakness could be due to Uremia but other causes are possible - avoid nephrotoxic insults - Renal ultrasound without acute finding - monitor urine output # Acute Anion gap metabolic acidosis with a lactate level of 5.0. present on admission. resolved. - Likely tissue hypoxia. NO clear infection identified at this time - Resolved # Chronic systolic heart failure with possible acute exacerbation. Dyspnea with increasing leg edema. Patient on Torsemide as outpatient - further diuresis per nephrology recs - Lasix 80mg q12 # Elevated troponin. Present on admission - Echo 12/22/16: EF 35 +/- 5%. "Flattened septum is consistent with RV pressure/ volume overload. Lateral wall is mildly hypokinetic with thinning and akinesis of the majority of the inferior and posterior hough." - new chest discomfort yesterday possibly due to worsening anemia. Did not have CP before presentation - transfuse PRBC and consider further cardiology consult if symptoms reoccur - ekg if having cp sx # Anemia, likely chronic. Present on admission. - worsening anemia without any obvious source of active bleeding - Previous history of Upper GI bleeding from gastritis - per discussion with nephrology consult s/p transfuse only one unit of PRBC slowly (12/23) # Thrombocytopenia. Present on admission Likely chronic and likely related to cirrhosis - monitor for bleeding # Diabetes Type 2 - low correction Lispro algorithm - HgA1c 6.7 # Suspected acute pneumonia vs vasculitis process. - no leukocytosis. - no fever - hold off on Abx at this time - f/u clinically # History of chronic obstructive pulmonary disease - on home oxygen. Dispo: 3-4 days pending above issues. Pain Evaluation: Adequate Pain Control GI Prophylaxis: H2 dylon VTE Prophylaxis: Sub-Q Heparin (Unfractionated) VTE Mechanical Devices: Venous Foot Pump Resuscitation Status: CPR: Attempt Resuscitation Uriel Mario MD Dec 25, 2016 10:27
--- NOTE | 2016-12-25 10:56 | PCM.PNNEPH ---
Subjective Date of Service Dec 25, 2016 Subjective Patient reported that he has felt better. Yet, he remains having LE swelling and kidney function has not improved. serum creatinine today is 5.8. I&O: 1475 & 2125 ml. Exam Vital Signs Vital Sign - Last Date Time Temp Pulse Resp B/P Pulse Ox O2 Delivery O2 Flow Rate FiO2 12/25/16 09:20 36.9 65 20 155/67 95 Nasal Cannula 4.00 Intake and Output 12/24/16 12/24/16 12/25/16 Cumulative From/Thru 14:59 22:59 06:59 12/21/16 12:55 - 12/25/16 05:17 Intake Total 200 ml 972 ml 4043 ml Output Total 750 ml 1375 ml 4225 ml Balance -550 ml -403 ml -182 ml Intake Oral 200 ml 972 ml 3743 ml IV Total 0 ml 0 ml Packed Cells 300 ml Output Urine Total 750 ml 1375 ml 4225 ml # Voids 3 3 # Bowel Movements 0 1 5 Exam General appearance: Awake, alert, oriented x3, in no acute distress. HEENT: Mild pallor. No jaundice. Positive for JVD. No lymphadenopathy. No thyroid enlargement. Heart: Irregular rhythm. Soft systolic murmur noted. Defibrillator in place on the left upper chest. Scar is dry, clean, intact. Lungs: rales at bases, No wheezing. No rhonchi. Abdomen: Soft, nontender, nondistended. No hepatosplenomegaly. Extremities: 2+ edema on the lower extremities. Lab and Diagnostics Result Diagram: 12/25/16 0830 12/25/16 0830 X-Rays, CTs and MRIs X-RAY CHEST ONE VIEW, PORTABLE 12/21/16 IMPRESSION: Patchy airspace opacity in the right lung base suspicious for pneumonia. A small right-sided pleural effusion. Dictated by: Edilia Mendoza MD, PhD on 12/21/2016 at 14:50 Approved by: Edilia Mendoza MD, PhD on 12/21/2016 at 14:51 Plan Impression 1. Acute kidney injury on chronic kidney disease, stage III. - Worsening kidney function - Likely due to cardiorenal syndrome and ATN - Vasculitic w/u so far negative. 2. Acute on chronic biventricular systolic CHF with pulm hypertension 3. Elevated serum troponin in the setting of renal insufficiency. 4. Suspected RLL PNA. 5. History of chronic obstructive pulmonary disease, on home oxygen. 6. Normocytic anemia. Likely due to anemia of chronic disease s/p blood transfusion. 7. LE edema, Venous Doppler showed no evidence of DVT. Plan: Pt has agreed with starting hemodialysis. We will place right femoral sadaf catheter. 1st HD today for 2.5 hr. Marisa Soler MD Dec 25, 2016 10:56
[2016-12-25] MEDS: Furosemide 10 mg/mL 10 mL Inj IVPUSH SCH (11:26)
--- NOTE | 2016-12-25 12:59 | CONS ---
[address] [address] CONSULTATION REPORT PATIENT: EMBER PANDEY : 1935 MR#: [id number] ADMIT: 12/21/2016 JOB ID: [id number] DATE OF SERVICE: 12/25/2016 CARDIOLOGY CONSULTATION: REQUEST BY: Dr. Neymar Dangelo REASON FOR EVALUATION: Heart failure and elevated troponin. I saw and examined the patient. Please see Neftali Shipley PA-C's note for detail. IMPRESSION: 1. Volume overload due to acute renal failure. 2. Elevated troponin, secondary to volume overload and acute renal failure. 3. Ischemic cardiomyopathy with ejection fraction 35%. 4. Status post coronary artery bypass surgery x4 on June 27, 1999. 5. Status post biventricular ICD implantation on August 07, 2009. 6. Peripheral artery disease, status post balloon angioplasty to the right profunda artery. 7. Metastatic colon cancer to liver. 8. Chronic obstructive pulmonary disease on home oxygen. 9. Hypertension. 10. Diabetes mellitus. PLAN: I agree with that the patient would benefit from hemodialysis. I believe that the cause of his volume overload is due to acute renal failure. There is no indication to perform cardiac catheterization at this time since elevated troponin occurred in the setting of acute renal failure and volume overload. Cardiology will sign off. The patient can follow with his primary crankshaft grinder, Dr. Vaughn, when he is discharged from the hospital. ARNIE
--- NOTE | 2016-12-25 13:48 | NUR ---
Pt arrived to [facility]: Pt arrived to [facility] for dialysis treatment. Report obtained from primary RN. Pt appears stable at time of arrival. On tele and is V-paced. Tele monitor aware of pt arrival. Addendum: 12/25/16 at 1717 by HECTOR GIRARD RN Pt completed treatment and can return to [facility]. Report given to primary nurse. certified histologic technician aware of transfer. Pt appears stable at time of transfer.
--- NOTE | 2016-12-25 13:49 | NUR ---
Off Unit: Patient transported to [facility] for temporary dialysis cath placement and dialysis @ approx 1330. O2 NC 4L for transport. Transported in bed accompanied by this RN and Nursing Change Management. nuclear chemistry technician notified. Report given to ANANT Larson.
--- NOTE | 2016-12-25 15:31 | PCM.PROC ---
Procedure Note Date of Service: Dec 25, 2016 Pre Procedure Diagnosis: KRISTAL, fluid overload Post Procedure Diagnosis: KRISTAL, fluid overload Procedure: Nontunneled catheter placement right femoral vein Provider and Manager Financial Reporting: Dr. Soler MS4: Olimpia Kennedy Indication for Procedure: uremia Procedural Analgesia: local anesthesia Procedure Details: Consent: Detailed explanation of the procedure, treatment options, risks including but not limited to infection and bleeding, and benefits were explained to the patient. A written informed consent was obtained. Technique: A time out was preformed identifying the correct procedure, the correct location with the nursing staff. The right groin was prepped with 2% chlorhexidine and draped with a full length sterile sheet in the usual fashion. 1% lidocaine was administered subcutaneously for local anesthesia. The right femoral vein was accessed under ultrasound guidance with an 18 gauge thin wall needle. A 20 cm Mahurkar catheter was inserted via the Seldinger technique. Blood was withdrawn from all lumens and flushed with normal saline. The catheter was sutured in place and a sterile dressing was applied over the site prior to removal of drapes. The patient tolerated the procedure well and there were no complications. EBL: 5 ml. Complication: None. Marisa Soler MD Dec 25, 2016 15:31
--- NOTE | 2016-12-25 16:05 | NUR ---
Social Work: continued Discharge Planning: Data & Assessment: Sheet Metal Installer spoke with patient's daughter, Sandhya, to discuss discharge planning. SW notified patient's daughter that PT recommended Home health and provided her with a choice list for her and the patient to review. Patient daughter stated that she will review list with patient and notify SW of choice. SW will continue to follow. Plan: Patient will likely discharge home with HH via POV. SW will continue to follow. Maryjane Don LMSW, MANISH
--- NOTE | 2016-12-25 17:10 | NUR ---
Dialysis note: S/P catheter placement. 2 1/2 hrs tx. 3000 ml net UF. Right femoral catheter, dsg changed, sutures intact. Pls see DTR for VS details. Qb 250. No heparin given. O2 @ 4L via NC on. Stable treatment. Catheter flushed, heparin dwelled and secured. Report given to Marsha Goff RN. Stable at time of transfer.
--- NOTE | 2016-12-25 18:15 | NUR ---
Bedrest: Rt femoral catheter placed for dialysis. Discussed with Caterina asphalt paver, patient is to be on bedrest, log-roll for turning, HOB elevated no more than 30-[address] in reverse Trendelenburg for meals. Discussed with patient. Verbalized understanding. Bed alarm on.
[2016-12-25] MEDS ORDERED: 0.9% Sodium Chloride 100 ML ONE (21:09)
[2016-12-26] VITALS (8 sets, daily range): BP systolic 156–162; BP diastolic 55–71; PULSE 60–71; RESP 16–20; O2SAT 93–97
[2016-12-26] MEDS: Heparin 5,000 Unit/mL Inj SUBQ SCH ×3 (00:34→16:21)
--- NOTE | 2016-12-26 04:56 | NUR ---
BEDREST Pt continues to be on bedrest with minimal flexion at waist r/t r. femoral catheter. Pt logrolls well with 1 PA with bedpan and urinal. Pt verbalizes understanding of bedrest. Disconnected jacklyn alarm, as it was not working properly. Pt verbalized understanding to not get up and use call light when help is needed. Using call light appropriately. Hourly rounding in place.
--- NOTE | 2016-12-26 05:33 | NUR ---
ANXIETY At 0515, pt reported "a lot of pent up anxiety" and is having trouble dealing with it. Pt expressed feeling overwhelmed r/t current situation and worries about 's health as well. Pt asked "Is there something you can give me for anxiety without affecting my oxgyen." Told pt nursing with place cpox to monitor oxygen closely, but anxiety should also be addressed. Paged hospitalist application administrator requesting anxiolytic. Waiting response. Ordered ativan. Will also pass onto day shift to address anxiety in morning rounds. Hourly rounding in place.
[2016-12-26] MEDS: LORazepam 0.5 mg Tablet PO PRN ×2 (06:11→17:22)
[2016-12-26 06:27] LABS: BASOPHILS % (AUTO) 0.2 % (0-3); EOSINOPHILS % (AUTO) 2.1 % (0-5); MONOCYTES % (AUTO) 6.3 % (4-12); Mean Corpuscular Hemoglobin 28.4 pg (27.0-35.0); Mean Corpuscular Volume 90.4 fL (81-100); NEUTROPHILS % (AUTO) 80.2 % (40-74); Platelet Count 122 bil/L (150-400)
[2016-12-26] MEDS: Insulin LISPRO 300 Unit/3 mL Inj SUBQ SCH ×4 (08:00→20:24)
[2016-12-26] MEDS: Famotidine Inj 20 MG in IV Premix 1 EACH IV SCH ×2 (08:37→20:23)
--- NOTE | 2016-12-26 10:56 | PCM.PNMED ---
Subjective Date of Service Dec 26, 2016 Subjective - Pt seen and examined this morning. AAO x 3 - Not in acute distress. Femoral catheter placed yesterday for Hemodialysis. Exam Vital Signs Vital Sign - Last Date Time Temp Pulse Resp B/P Pulse Ox O2 Delivery O2 Flow Rate FiO2 12/26/16 09:39 60 12/26/16 08:41 36.9 18 156/55 93 Nasal Cannula 2.00 Intake and Output 12/25/16 12/25/16 12/26/16 Cumulative From/Thru 14:59 22:59 06:59 12/21/16 12:55 - 12/26/16 06:29 Intake Total 455 ml 500 ml 119 ml 5117 ml Output Total 4100 ml 1000 ml 475 ml 9800 ml Balance -3645 ml -500 ml -356 ml -4683 ml Intake Oral 455 ml 500 ml 0 ml 4698 ml IV Total 119 ml 119 ml Packed Cells 300 ml Output Urine Total 1100 ml 1000 ml 475 ml 6800 ml Ultrafiltrate 3000 ml 3000 ml # Voids 3 6 # Bowel Movements 1 1 7 Exam General: Alert, Cooperative, No acute Distress Eyes: PERRLA, Scleral Anicteric Mouth: Mouth Normal, Mucous Membranes Moist/[place] Neck: Supple Chest & Lungs: Clear to auscultation bilat Cardiovascular: Regular Rate/Rhythm Pulses: Dorsalis Pedi (present and equal) Abdomen: Soft, Non-tender, Non-distended, Normoactive bowel tones. Musculoskeletal: Unremarkable. Normal range of motion, no swollen or erythematous joints Extremities: 3+ pitting edema, no cyanosis, no clubbing. Right femoral catheter in place. Skin: No rashes. Neurological: Grossly neurologically intact Lab and Diagnostics Result Diagram: 12/26/16 0550 12/26/16 0550 X-Rays, CTs and MRIs X-RAY CHEST ONE VIEW, PORTABLE 12/21/16 IMPRESSION: Patchy airspace opacity in the right lung base suspicious for pneumonia. A small right-sided pleural effusion. Dictated by: Edilia Mendoza MD, PhD on 12/21/2016 at 14:50 Approved by: Edilia Mendoza MD, PhD on 12/21/2016 at 14:51 Assessment & Plan 81 year old male with Congestive heart failure, Coronary artery disease, COPD and chronic respiratory failure, Diabetes who presents to [facility] emergency department complaining of generalized weakness # Acute Kidney Injury on chronic kidney disease, stage III. present on admission. ongoing - Worsening kidney function - Etiologies is unclear, DDx cardiorenal syndrome, ATN, AIN - appreciate nephrology consult. HD catheter placed yesterday/ - Vaculitis, panel negative. - weakness could be due to Uremia but other causes are possible - avoid nephrotoxic insults - Renal ultrasound without acute finding - monitor urine output # Acute Anion gap metabolic acidosis with a lactate level of 5.0. present on admission. resolved. - Likely tissue hypoxia. NO clear infection identified at this time - Resolved # Chronic systolic heart failure with possible acute exacerbation. Dyspnea with increasing leg edema. Patient on Torsemide as outpatient - further diuresis per nephrology recs - Lasix 80mg q12 # Elevated troponin. Present on admission - Echo 12/22/16: EF 35 +/- 5%. "Flattened septum is consistent with RV pressure/ volume overload. Lateral wall is mildly hypokinetic with thinning and akinesis of the majority of the inferior and posterior hough." - new chest discomfort yesterday possibly due to worsening anemia. Did not have CP before presentation - transfuse PRBC and consider further cardiology consult if symptoms reoccur - ekg if having cp sx # Anemia, likely chronic. Present on admission. - worsening anemia without any obvious source of active bleeding - Previous history of Upper GI bleeding from gastritis # Thrombocytopenia. Present on admission - Likely chronic and likely related to cirrhosis - monitor for bleeding # Diabetes Type 2 - low correction Lispro algorithm - HgA1c 6.7 # History of chronic obstructive pulmonary disease - on home oxygen. Dispo: 3-4 days pending above issues. GI Prophylaxis: H2 dylon VTE Prophylaxis: Sub-Q Heparin (Unfractionated) VTE Mechanical Devices: Venous Foot Pump Resuscitation Status: CPR: Attempt Resuscitation Uriel Mario MD Dec 26, 2016 10:56
--- NOTE | 2016-12-26 11:40 | NUR ---
Transferred to Dialysis Patient transferred to dialysis at 1135.
--- NOTE | 2016-12-26 12:16 | PCM.PNNEPH ---
Subjective Date of Service Dec 26, 2016 Subjective 1st HD started yesterday without complication, UF 3 L. Exam Vital Signs Vital Sign - Last Date Time Temp Pulse Resp B/P Pulse Ox O2 Delivery O2 Flow Rate FiO2 12/26/16 09:39 60 12/26/16 08:41 36.9 18 156/55 93 Nasal Cannula 2.00 Intake and Output 12/25/16 12/25/16 12/26/16 Cumulative From/Thru 15:00 23:00 07:00 12/21/16 12:55 - 12/26/16 06:29 Intake Total 455 ml 500 ml 119 ml 5117 ml Output Total 4100 ml 1000 ml 475 ml 9800 ml Balance -3645 ml -500 ml -356 ml -4683 ml Intake Oral 455 ml 500 ml 0 ml 4698 ml IV Total 119 ml 119 ml Packed Cells 300 ml Output Urine Total 1100 ml 1000 ml 475 ml 6800 ml Ultrafiltrate 3000 ml 3000 ml # Voids 3 6 # Bowel Movements 1 1 7 Exam General appearance: Awake, alert, oriented x3, in no acute distress. HEENT: Mild pallor. No jaundice. Positive for JVD. No lymphadenopathy. No thyroid enlargement. Heart: Irregular rhythm. Soft systolic murmur noted. Defibrillator in place on the left upper chest. Scar is dry, clean, intact. Lungs: rales at bases, No wheezing. No rhonchi. Abdomen: Soft, nontender, nondistended. No hepatosplenomegaly. Extremities: 2+ edema on the lower extremities. Lab and Diagnostics Result Diagram: 12/26/16 0550 12/26/16 0550 X-Rays, CTs and MRIs X-RAY CHEST ONE VIEW, PORTABLE 12/21/16 IMPRESSION: Patchy airspace opacity in the right lung base suspicious for pneumonia. A small right-sided pleural effusion. Dictated by: Edilia Mendoza MD, PhD on 12/21/2016 at 14:50 Approved by: Edilia Mendoza MD, PhD on 12/21/2016 at 14:51 Plan Impression Impression/Plan Plan Impression 1. Acute kidney injury on chronic kidney disease, stage III. - Worsening kidney function - Likely due to cardiorenal syndrome and ATN - Vasculitic w/u so far negative. 2. 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 Elevated serum troponin in the setting of renal insufficiency. 4. Suspected RLL PNA. 5. History of chronic obstructive pulmonary disease, on home oxygen. 6. Normocytic anemia. Likely due to anemia of chronic disease s/p blood transfusion. 7. LE edema, Venous Doppler showed no evidence of DVT. Plan: 2nd HD today, 3rd HD in am. Marisa Soler MD Dec 26, 2016 12:16
--- NOTE | 2016-12-26 15:41 | NUR ---
Social Work-continued d/c planning: Data:EMR reviewed. Pt is on day 5 of hospitalization for acute renal failure per H&P. Pt is not medically stable, anticipate several more days. PT worked with pt and are recommending home with HH. HH choice list provided yesterday. SW followed up with pt at bedside to discuss, SW role explained. Pt is agreeable to HH, confirms that he is homebound. Pt states he would like a referral to [facility]. SW called [facility] and provided referral for RN,PT, and OT, access given. F2F in folder. SW will continue to follow. Assessment:Pt who would benefit from HH. Plan:Pt to discharge home when medically stable via POV. Referral made to [facility] for RN,PT, and OT. Pt has temporary dialysis cath in place. F2F in folder. SW will continue to follow. LOVE Isbell
--- NOTE | 2016-12-26 16:46 | NUR ---
Dialysis note Second HD tx today. 3 hrs. 1000ml net UF removed. R femoral catheter. QB 300. QD 600. No Heparin used. See DTR for complete vitals. Pt having loose/watery stools at beginning of tx, sample sent. Pt rested comfortably thru tx without further BM's. Catheter dwelled with 1000/1 U heparin and secured. Returned to floor stable.
[2016-12-27] VITALS (9 sets, daily range): BP systolic 144–166; BP diastolic 49–81; PULSE 66–93; RESP 18; O2SAT 92–98
[2016-12-27] MEDS: Heparin 5,000 Unit/mL Inj SUBQ SCH ×3 (01:40→16:22)
[2016-12-27 07:43] LABS: BASOPHILS % (AUTO) 0.1 % (0-3); EOSINOPHILS % (AUTO) 1.9 % (0-5); MONOCYTES % (AUTO) 5.8 % (4-12); Mean Corpuscular Hemoglobin 28.6 pg (27.0-35.0); Mean Corpuscular Volume 91.4 fL (81-100); NEUTROPHILS % (AUTO) 80.6 % (40-74); Platelet Count 111 bil/L (150-400)
[2016-12-27] MEDS: Insulin LISPRO 300 Unit/3 mL Inj SUBQ SCH ×4 (08:00→21:42)
--- NOTE | 2016-12-27 09:23 | PCM.PNMED ---
Subjective Date of Service Dec 27, 2016 Subjective - Pt seen and examined this morning. AAO x 3 - Not in acute distress. He underwent second HD yesterday. He states that he is feeling better than yesterday. Exam Vital Signs Vital Sign - Last Date Time Temp Pulse Resp B/P Pulse Ox O2 Delivery O2 Flow Rate FiO2 12/27/16 05:43 36.7 80 18 149/71 93 Nasal Cannula 2.00 Intake and Output 12/26/16 12/26/16 12/27/16 Cumulative From/Thru 15:00 23:00 07:00 12/21/16 12:55 - 12/27/16 06:36 Intake Total 458 ml 0 ml 5575 ml Output Total 1550 ml 525 ml 86776 ml Balance -1092 ml -525 ml -6300 ml Intake Oral 458 ml 0 ml 5156 ml IV Total 119 ml Packed Cells 300 ml Output Urine Total 550 ml 525 ml 7875 ml Ultrafiltrate 1000 ml 4000 ml # Voids 6 # Bowel Movements 2 1 10 Exam General: Alert, Cooperative, No acute Distress Eyes: PERRLA, Scleral Anicteric Mouth: Mouth Normal, Mucous Membranes Moist/Irene Neck: Supple Chest & Lungs: Clear to auscultation bilat Cardiovascular: Regular Rate/Rhythm Pulses: Dorsalis Pedi (present and equal) Abdomen: Soft, Non-tender, Non-distended, Normoactive bowel tones. Musculoskeletal: Unremarkable. Normal range of motion, no swollen or erythematous joints Extremities: 3+ pitting edema, no cyanosis, no clubbing. Right femoral catheter in place. Skin: No rashes. Neurological: Grossly neurologically intact IVs and Medications Medications Reviewed: Medications were reviewed in detail Lab and Diagnostics Result Diagram: 12/27/16 0715 12/27/16 0715 X-Rays, CTs and MRIs X-RAY CHEST ONE VIEW, PORTABLE 12/21/16 IMPRESSION: Patchy airspace opacity in the right lung base suspicious for pneumonia. A small right-sided pleural effusion. Dictated by: Edilia Mendoza MD, PhD on 12/21/2016 at 14:50 Approved by: Edilia Mendoza MD, PhD on 12/21/2016 at 14:51 Assessment & Plan 81 year old male with Congestive heart failure, Coronary artery disease, COPD and chronic respiratory failure, Diabetes who presents to [facility] emergency department complaining of generalized weakness # Acute Kidney Injury on chronic kidney disease, stage III. present on admission. ongoing - Etiologies is unclear, DDx cardiorenal syndrome, ATN, AIN - appreciate nephrology consult. HD catheter placed. - HD started on 12/25. Underwent 2nd HD yesterday. - Vasculitis, panel negative. - weakness could be due to Uremia but other causes are possible - avoid nephrotoxic insults - Renal ultrasound without acute finding - monitor urine output # Acute Anion gap metabolic acidosis with a lactate level of 5.0. present on admission. resolved. - Likely tissue hypoxia. NO clear infection identified at this time - Resolved # Chronic systolic heart failure with possible acute exacerbation. - Dyspnea with increasing leg edema. Patient on Torsemide as outpatient - on hemodialysis - Lasix 20 mg q12 # Elevated troponin. Present on admission - Echo 12/22/16: EF 35 +/- 5%. "Flattened septum is consistent with RV pressure/ volume overload. Lateral wall is mildly hypokinetic with thinning and akinesis of the majority of the inferior and posterior hough." - new chest discomfort yesterday possibly due to worsening anemia. Did not have CP before presentation - transfuse PRBC and consider further cardiology consult if symptoms reoccur - ekg if having cp sx # Anemia, likely chronic. Present on admission. - worsening anemia without any obvious source of active bleeding - Previous history of Upper GI bleeding from gastritis # Thrombocytopenia. Present on admission - Likely chronic and likely related to cirrhosis - monitor for bleeding # Diabetes Type 2 - low correction Lispro algorithm - HgA1c 6.7 # History of chronic obstructive pulmonary disease - on home oxygen. Dispo: 2-3 days pending above issues. GI Prophylaxis: H2 dylon VTE Prophylaxis: Sub-Q Heparin (Unfractionated) VTE Mechanical Devices: Venous Foot Pump Resuscitation Status: CPR: Attempt Resuscitation Uriel Mario MD Dec 27, 2016 09:23
[2016-12-27] MEDS: Famotidine Inj 20 MG in IV Premix 1 EACH IV SCH ×2 (09:35→21:18)
--- NOTE | 2016-12-27 12:37 | NUR ---
Transferred to Dialysis Patient transferred to dialysis at 0935.
--- NOTE | 2016-12-27 12:42 | NUR ---
Dialysis femoral catheter: Pt has a temporary femoral cath and is on bedrest until this catheter is removed and a tunneled cath is inserted. In addition his head may not be elevated higher than 45 degrees.
--- NOTE | 2016-12-27 13:31 | PCM.PNNEPH ---
Subjective Date of Service Dec 27, 2016 Subjective Pt is seen during 3rd HD today, no complication,stable BP, today UF ~ 3L. Exam Vital Signs Vital Sign - Last Date Time Temp Pulse Resp B/P Pulse Ox O2 Delivery O2 Flow Rate FiO2 12/27/16 09:44 36.5 83 18 155/81 94 Nasal Cannula 2.00 Intake and Output 12/26/16 12/26/16 12/27/16 Cumulative From/Thru 15:00 23:00 07:00 12/21/16 12:55 - 12/27/16 06:36 Intake Total 458 ml 0 ml 5575 ml Output Total 1550 ml 525 ml 43258 ml Balance -1092 ml -525 ml -6300 ml Intake Oral 458 ml 0 ml 5156 ml IV Total 119 ml Packed Cells 300 ml Output Urine Total 550 ml 525 ml 7875 ml Ultrafiltrate 1000 ml 4000 ml # Voids 6 # Bowel Movements 2 1 10 Exam General appearance: Awake, alert, oriented x3, in no acute distress. HEENT: Mild pallor. No jaundice. Positive for JVD. No lymphadenopathy. No thyroid enlargement. Heart: Irregular rhythm. Soft systolic murmur noted. Defibrillator in place on the left upper chest. Scar is dry, clean, intact. Lungs: rales at bases, No wheezing. No rhonchi. Abdomen: Soft, nontender, nondistended. No hepatosplenomegaly. Extremities: 2+ edema on the lower extremities. Lab and Diagnostics Result Diagram: 12/27/1671412/27/16714 X-Rays, CTs and MRIs X-RAY CHEST ONE VIEW, PORTABLE 12/21/16 IMPRESSION: Patchy airspace opacity in the right lung base suspicious for pneumonia. A small right-sided pleural effusion. Dictated by: Edilia Mendoza MD, PhD on 12/21/2016 at 14:50 Approved by: Edilia Mendoza MD, PhD on 12/21/2016 at 14:51 Plan Impression 1. Acute kidney injury on chronic kidney disease, stage III. - Worsening kidney function - Likely due to cardiorenal syndrome and ATN - Vasculitic w/u so far negative. - HD started on 12/25. - now on 3rd HD. 3.5 hr, UF 3L, DFR 600, BFR 300, K 4, 35HCO, right femoral sadaf, revaclear. 2. 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 Elevated serum troponin in the setting of renal insufficiency. 4. Suspected RLL PNA. 5. History of chronic obstructive pulmonary disease, on home oxygen. 6. Normocytic anemia. Likely due to anemia of chronic disease s/p blood transfusion and aranesp injection on 12/22. 7. LE edema, Venous Doppler showed no evidence of DVT. Plan: next HD in am, UF as tolerated. aranesp injection again in am. Plan Marisa Soler MD Dec 27, 2016 13:31
--- NOTE | 2016-12-27 13:51 | NUR ---
Dialysis Note: 3 hr tx. Net UF 3.0 Accessed right femoral cath without difficulty. Dresg CDI. Pt stable throughout tx. Pt had questions re: the process of the dialysis machine, chronic dialysis tx, and the choices that need to be made. I thought about just pulling the plug. I encouraged him to talk with his family and the hospital group social worker. Blood returned and cath dwelled with Heparin 1000 and secured. Pt returned to floor stable. Please see DTR for complete record of VS.
[2016-12-27] MEDS: LORazepam 0.5 mg Tablet PO PRN (14:48)
[2016-12-27] MEDS: Vitamin B Complex/Vit C Tablet PO SCH (15:04)
--- NOTE | 2016-12-27 15:46 | NUR ---
FRIDA FRIDA signed
[2016-12-27] MEDS ORDERED: 0.9% Sodium Chloride 100 ML ONE (21:34)
[2016-12-28] VITALS (8 sets, daily range): BP systolic 150–159; BP diastolic 54–73; PULSE 60–85; RESP 18–22; O2SAT 94–99
[2016-12-28] MEDS: Heparin 5,000 Unit/mL Inj SUBQ SCH ×3 (01:01→17:26)
[2016-12-28] MEDS: LORazepam 0.5 mg Tablet PO PRN ×3 (03:48→22:10)
[2016-12-28 07:00] LABS: BASOPHILS % (AUTO) 0.2 % (0-3); MONOCYTES % (AUTO) 6.4 % (4-12); Mean Corpuscular Hemoglobin 28.4 pg (27.0-35.0); Mean Corpuscular Volume 91.4 fL (81-100); NEUTROPHILS % (AUTO) 77.2 % (40-74); Platelet Count 102 bil/L (150-400)
[2016-12-28 07:25] LABS: Phosphorus 3.3 mg/dL (2.5-4.9)
--- NOTE | 2016-12-28 07:31 | NUR ---
Activity: It was noted that was assisted up to the bathroom x2 with staff over the day/evening yesterday. Later, pt again asked to get up to the bathroom. RN reminded pt that at this time he is to be bedrest keeping that right leg straight in bed due to the femoral dialysis line; used bedpan at that time. Medicated with Ativan for anxiety x1.
[2016-12-28] MEDS ORDERED: Darbepoetin Alfa 40 mCg/0.4 mL Inj SUBQ ONE (08:00)
[2016-12-28] MEDS: Insulin LISPRO 300 Unit/3 mL Inj SUBQ SCH ×4 (08:00→22:16)
[2016-12-28] MEDS: Famotidine Inj 20 MG in IV Premix 1 EACH IV SCH (08:56)
[2016-12-28] MEDS: Vitamin B Complex/Vit C Tablet PO SCH (08:59)
--- NOTE | 2016-12-28 11:41 | NUR ---
pt arrived to [facility] for DIALYSIS via bed at ~1115 report received from ME RN ([facility]) tele manager monitoring informed of temp room location pt alert/oriented; 3L NC geoint analyst at bedside
--- NOTE | 2016-12-28 14:06 | PCM.PNNEPH ---
Subjective Date of Service Dec 28, 2016 Subjective Patient was seen today in dialysis and his stroke is been reviewed. He states he is feeling a bit better however after 3 dialysis treatments and is only had a bit over 500 mL severe and on the last 24 hours. Supporting his creatinine is 3.57. Spelled pressure is good and he denies any orthopnea, chest pain, shortness of breath, nausea or vomiting. His bases about a year ago his creatinine was in the low 1 range. Social history Ms. Mcdaniel, sodium is 136, potassium 3.6, chloride 97, bicarbonate 25, BUN and creatinine were 30 and 3.57. Exam Vital Signs Vital Sign - Last Date Time Temp Pulse Resp B/P Pulse Ox O2 Delivery O2 Flow Rate FiO2 12/28/16 11:11 66 12/28/16 09:22 36.6 20 159/70 94 Nasal Cannula 3.00 Intake and Output 12/27/16 12/27/16 12/28/16 Cumulative From/Thru 15:00 23:00 07:00 12/21/16 12:55 - 12/28/16 06:07 Intake Total 774 ml 375 ml 6724 ml Output Total 3000 ml 3 ml 200 ml 28511 ml Balance -3000 ml 771 ml 175 ml -8354 ml Intake Oral 774 ml 300 ml 6230 ml IV Total 75 ml 194 ml Packed Cells 300 ml Output Urine Total 3 ml 200 ml 8078 ml Ultrafiltrate 3000 ml 7000 ml # Voids 1 7 # Bowel Movements 3 13 Exam HEENT examination is remarkable for pale sclera. Neck is supple without adenopathy thyromegaly or drug or venous distention. Heart clear to auscultation though somewhat diminished in both bases. Abdomen was soft but distended with free fluid wave noted. His abdomen was nontender over his liver was pulsatile. There was no tenderness rebound guarding masses or hepatosplenomegaly. Extremities do not show any evidence of any clubbing cyanosis or edema. Lab and Diagnostics Result Diagram: 12/28/16 0610 12/28/16 0610 X-Rays, CTs and MRIs X-RAY CHEST ONE VIEW, PORTABLE 12/21/16 IMPRESSION: Patchy airspace opacity in the right lung base suspicious for pneumonia. A small right-sided pleural effusion. Dictated by: Edilia Mendoza MD, PhD on 12/21/2016 at 14:50 Approved by: Edilia Mendoza MD, PhD on 12/21/2016 at 14:51 Plan Impression Impression #1 acute tubular necrosis number to cardiorenal syndrome #3 acute decompensated congestive heart failure diabetic nephropathy #6 anemia secondary to chronic kidney disease Recommendations #1 the patient be dialyzed today for his fourth treatment. He was dialyzed on revaclear dialyzer 3 and half hours, 4 potassium bath, 1200 with Initial bolus and will try to take 2 L of fluid off. Following his dialysis treatment the temporary dialysis catheter removed and we will see him next few days how his renal function is. Plan The patient will continue hyperbaric treatments. Will return () for treatment #() Jeevan Killian DO Dec 28, 2016 14:06
--- NOTE | 2016-12-28 14:13 | PCM.PNNEPH ---
Subjective Date of Service Dec 28, 2016 Exam Vital Signs Vital Sign - Last Date Time Temp Pulse Resp B/P Pulse Ox O2 Delivery O2 Flow Rate FiO2 12/28/16 11:11 66 12/28/16 09:22 36.6 20 159/70 94 Nasal Cannula 3.00 Intake and Output 12/27/16 12/27/16 12/28/16 Cumulative From/Thru 15:00 23:00 07:00 12/21/16 12:55 - 12/28/16 06:07 Intake Total 774 ml 375 ml 6724 ml Output Total 3000 ml 3 ml 200 ml 02118 ml Balance -3000 ml 771 ml 175 ml -8354 ml Intake Oral 774 ml 300 ml 6230 ml IV Total 75 ml 194 ml Packed Cells 300 ml Output Urine Total 3 ml 200 ml 8078 ml Ultrafiltrate 3000 ml 7000 ml # Voids 1 7 # Bowel Movements 3 13 Lab and Diagnostics Result Diagram: 12/28/16 0610 12/28/16 0610 X-Rays, CTs and MRIs X-RAY CHEST ONE VIEW, PORTABLE 12/21/16 IMPRESSION: Patchy airspace opacity in the right lung base suspicious for pneumonia. A small right-sided pleural effusion. Dictated by: Edilia Mendoza MD, PhD on 12/21/2016 at 14:50 Approved by: Edilia Mendoza MD, PhD on 12/21/2016 at 14:51 Plan Plan The patient will continue hyperbaric treatments. Will return () for treatment #() Jeevan Killian DO Dec 28, 2016 14:13 Result Diagram: 12/28/16 0610 12/28/16 0610 X-Rays, CTs and MRIs X-RAY CHEST ONE VIEW, PORTABLE 12/21/16 IMPRESSION: Patchy airspace opacity in the right lung base suspicious for pneumonia. A small right-sided pleural effusion. Dictated by: Edilia Mendoza MD, PhD on 12/21/2016 at 14:50 Approved by: Edilia Mendoza MD, PhD on 12/21/2016 at 14:51 Plan Impression Impression #1 acute tubular necrosis #2 hepatorenal syndrome #3 metabolic acidosis number for anasarca. Recommendations #1 I would like to continue to cautiously diurese her and follow her labs including her intake, output, and chemistries. Plan The patient will continue hyperbaric treatments. Will return () for treatment #() Jeevan Killian DO Dec 28, 2016 14:13
--- NOTE | 2016-12-28 14:17 | PCM.PNNEPH ---
Subjective Date of Service Dec 28, 2016 Subjective P Exam Vital Signs Vital Sign - Last Date Time Temp Pulse Resp B/P Pulse Ox O2 Delivery O2 Flow Rate FiO2 12/28/16 11:11 66 12/28/16 09:22 36.6 20 159/70 94 Nasal Cannula 3.00 Intake and Output 12/27/16 12/27/16 12/28/16 Cumulative From/Thru 15:00 23:00 07:00 12/21/16 12:55 - 12/28/16 06:07 Intake Total 774 ml 375 ml 6724 ml Output Total 3000 ml 3 ml 200 ml 97835 ml Balance -3000 ml 771 ml 175 ml -8354 ml Intake Oral 774 ml 300 ml 6230 ml IV Total 75 ml 194 ml Packed Cells 300 ml Output Urine Total 3 ml 200 ml 8078 ml Ultrafiltrate 3000 ml 7000 ml # Voids 1 7 # Bowel Movements 3 13 Lab and Diagnostics Result Diagram: 12/28/16 0610 12/28/16 0610 X-Rays, CTs and MRIs X-RAY CHEST ONE VIEW, PORTABLE 12/21/16 IMPRESSION: Patchy airspace opacity in the right lung base suspicious for pneumonia. A small right-sided pleural effusion. Dictated by: Edilia Mendoza MD, PhD on 12/21/2016 at 14:50 Approved by: Edilia Mendoza MD, PhD on 12/21/2016 at 14:51 Plan Plan The patient will continue hyperbaric treatments. Will return () for treatment #() Jeevan Killian DO Dec 28, 2016 14:17 Dictated by: Edilia Mendoza MD, PhD on 12/21/2016 at 14:50 Approved by: Edilia Mendoza MD, PhD on 12/21/2016 at 14:51 Plan Impression Impression #1 end-stage renal disease #2 acute decompensated congestive heart failure with pulmonary edema is improving Recommendations #1 I will go ahead and make arrangements for her dialysis tomorrow morning. Plan The patient will continue hyperbaric treatments. Will return () for treatment #() Jeevan Killian DO Dec 28, 2016 14:17
--- NOTE | 2016-12-28 16:13 | NUR ---
Dialysis note: 3 1/2 hr tx . Net UF 3000. Accessed right femoral cath without difficulty. QB 350. Pt rested and slept through most of tx. Near end of tx he ate 1/2 of his lunch. Pulled femoral cath per MD orders after blood was returned post tx. Gauze, tegaderm used, pressure for 15 min. Pt to remain bedfast for 2 hrs. Pt stable. Please see DTR for complete record of VS.
--- NOTE | 2016-12-28 16:41 | NUR ---
pt returned to [facility] post DIALYSIS at 1640 via bed escorted by x2 CNAs report returned from director of pediatric rehabilitation to primary RN right groin cath removal site c/d/i upon discharge from [facility] pt lunch [id number], aprox 25% meal intake x1 liquid stool at 1630 tele equipment monitor phototypesetting informed of return to [facility] see director of pediatric rehabilitation note, intervention, and/or graphic flow chart for treatment details
--- NOTE | 2016-12-28 17:45 | PCM.PNMED ---
Subjective Date of Service Dec 28, 2016 Exam Vital Signs Vital Sign - Last Date Time Temp Pulse Resp B/P Pulse Ox O2 Delivery O2 Flow Rate FiO2 12/28/16 12:09 68 12/28/16 09:22 36.6 20 159/70 94 Nasal Cannula 3.00 Intake and Output 12/27/16 12/27/16 12/28/16 Cumulative From/Thru 14:59 22:59 06:59 12/21/16 12:55 - 12/28/16 06:07 Intake Total 774 ml 375 ml 6724 ml Output Total 3000 ml 3 ml 200 ml 69888 ml Balance -3000 ml 771 ml 175 ml -8354 ml Intake Oral 774 ml 300 ml 6230 ml IV Total 75 ml 194 ml Packed Cells 300 ml Output Urine Total 3 ml 200 ml 8078 ml Ultrafiltrate 3000 ml 7000 ml # Voids 1 7 # Bowel Movements 3 Exam General: Alert, Cooperative, No acute Distress, thin frail elderly male lying in bed Eyes: Patient kept his eyes closed level time I saw him eyelids were normal there was no discharge Neck: Supple, trachea midline Chest & Lungs: Clear to auscultation bilat no accessory muscle usage no evidence of respiratory distress Cardiovascular: Regular Rate/Rhythm no murmur or gallop auscultated Abdomen: Soft, Non-tender, Non-distended, Normoactive bowel tones. Musculoskeletal: Unremarkable. Normal range of motion, no swollen or erythematous joints Skin: No rashes. Neurological: Grossly neurologically intact Psych: Patient is pleasant enough but keeps his eyes closed and is a bit withdrawn it is hard to draw him out and get him to talk Lab and Diagnostics Result Diagram: 12/28/16 0610 12/28/16 0610 X-Rays, CTs and MRIs X-RAY CHEST ONE VIEW, PORTABLE 12/21/16 IMPRESSION: Patchy airspace opacity in the right lung base suspicious for pneumonia. A small right-sided pleural effusion. Dictated by: Edilia Mendoza MD, PhD on 12/21/2016 at 14:50 Approved by: Edilia Mendoza MD, PhD on 12/21/2016 at 14:51 Assessment & Plan 81 year old male with Congestive heart failure, Coronary artery disease, COPD and chronic respiratory failure, Diabetes who presents to [facility] emergency department complaining of generalized weakness 12/28 patient was at dialysis for 4 visits it took me token 5:30 before he was back in his room to see him. He was ambulating a few days ago 200-250 feet with physical therapy. His groin catheter was pulled out earlier today so we will allow him to ambulate. He is going to be dialyzed via his tunnel cath now. # Acute Kidney Injury on chronic kidney disease, stage III. present on admission. ongoing - Etiologies is unclear, DDx cardiorenal syndrome, ATN, AIN - appreciate nephrology consult. HD catheter placed. - HD started on 12/25. Underwent rnd HD 12/28 - Vasculitis, panel negative. - weakness could be due to Uremia but other causes are possible - avoid nephrotoxic insults - Renal ultrasound without acute finding - monitor urine output #Acute weakness-seems to improve since the patient was dialyzed. # Acute Anion gap metabolic acidosis with a lactate level of 5.0. present on admission. resolved. - Likely tissue hypoxia. NO clear infection identified at this time - Resolved # Chronic systolic heart failure with possible acute exacerbation. - Dyspnea with increasing leg edema. Patient on Torsemide as outpatient - on hemodialysis - Lasix 20 mg q12 # Elevated troponin. Present on admission - Echo 12/22/16: EF 35 +/- 5%. "Flattened septum is consistent with RV pressure/ volume overload. Lateral wall is mildly hypokinetic with thinning and akinesis of the majority of the inferior and posterior hough." - new chest discomfort yesterday possibly due to worsening anemia. Did not have CP before presentation - transfuse PRBC and consider further cardiology consult if symptoms reoccur - ekg if having cp sx # Anemia, likely chronic. Present on admission. Hemoglobin approximately stable now - worsening anemia without any obvious source of active bleeding, received 1 unit of PRBCs 12/23 - Previous history of Upper GI bleeding from gastritis # Thrombocytopenia. Present on admission - Likely chronic and likely related to cirrhosis - monitor for bleeding # Diabetes Type 2 - low correction Lispro algorithm - HgA1c 6.7 # History of chronic obstructive pulmonary disease - on home oxygen. Dispo: 2-3 days pending above issues. First time meeting medically complex patient 12/28 GI Prophylaxis: H2 dylon VTE Prophylaxis: Sub-Q Heparin (Unfractionated) VTE Mechanical Devices: Venous Foot Pump Resuscitation Status: CPR: Attempt Resuscitation Phoenix Pacheco MD Dec 28, 2016 17:45
--- NOTE | 2016-12-28 18:31 | NUR ---
groin site post HD cath removal right groin site stable. no signs of hematoma post removal. distal pulses present. on bed rest x 2 hrs before sitting up. denies pain. continue to monitor.
[2016-12-29] VITALS (8 sets, daily range): BP systolic 113–169; BP diastolic 55–74; PULSE 65–85; RESP 18; O2SAT 94–97
[2016-12-29] MEDS: Heparin 5,000 Unit/mL Inj SUBQ SCH ×3 (00:47→17:13)
--- NOTE | 2016-12-29 03:14 | NUR ---
Loose BM: Pt had 2 loose BMs through the night. One, pt got up to the bathroom and was incontinent before making it to the toilet, the second, pt was incontinent in bed. Guaiac sent to lab. Bed alarm is activated for pt safety, pt understands it's use and has been requested to also use the call light for needs.
[2016-12-29 07:19] LABS: Phosphorus 2.3 mg/dL (2.5-4.9)
[2016-12-29] MEDS: Insulin LISPRO 300 Unit/3 mL Inj SUBQ SCH ×4 (08:00→21:05)
[2016-12-29] MEDS: Vitamin B Complex/Vit C Tablet PO SCH (09:28)
--- NOTE | 2016-12-29 14:55 | PCM.PNNEPH ---
Subjective Date of Service Dec 29, 2016 Subjective Overall the patient's condition is about the same. He has had very little urine output since having his dialysis cath pulled yesterday. His blood pressure remains in the 150-160 range systolic. He denies any chest pain, shortness of breath, cough, wheezing or vomiting. It is 138, potassium 3.6, 100 , bicarbonate 24, BUN and creatinine are 26 and 3.4 respectively. His foster 2.3. Exam Vital Signs Vital Sign - Last Date Time Temp Pulse Resp B/P Pulse Ox O2 Delivery O2 Flow Rate FiO2 12/29/16 13:20 36.6 69 18 113/55 96 Nasal Cannula 1.50 Intake and Output 12/28/16 12/28/16 12/29/16 Cumulative From/Thru 15:00 23:00 07:00 12/21/16 12:55 - 12/29/16 06:33 Intake Total 240 ml 318 ml 7282 ml Output Total 3000 ml 65398 ml Balance -2760 ml 318 ml -52940 ml Intake Oral 240 ml 318 ml 6788 ml IV Total 194 ml Packed Cells 300 ml Output Urine Total 8078 ml Ultrafiltrate 3000 ml 86152 ml # Voids 2 2 11 # Bowel Movements 2 2 17 Exam HEENT is remarkable for L sclera. Neck supple without adenopathy thyromegaly or jugular venous distention. Lungs are clear to auscultation. Heart was regular and rhythmical with a soft systolic murmur. Abdomen soft without any tenderness rebound guarding masses or hepatosplenomegaly. Extremities show any evidence of any clubbing cyanosis or edema. Skin turgor is good. Lab and Diagnostics Result Diagram: 12/28/16 0610 12/29/16 1055 X-Rays, CTs and MRIs X-RAY CHEST ONE VIEW, PORTABLE 12/21/16 IMPRESSION: Patchy airspace opacity in the right lung base suspicious for pneumonia. A small right-sided pleural effusion. Dictated by: Edilia Mendoza MD, PhD on 12/21/2016 at 14:50 Approved by: Edilia Mendoza MD, PhD on 12/21/2016 at 14:51 Plan Impression Impression #1 acute kidney injury versus end-stage renal disease number to cardiorenal syndrome #3 acute decompensated congestive heart failure Recommendations #1 I would like to continue to follow his urine output in the lab for the next several days and see if there is any recovery. If not I will place a tunnel catheter will start dialysis Plan The patient will continue hyperbaric treatments. Will return () for treatment #() Jeevan Killian DO Dec 29, 2016 14:55
--- NOTE | 2016-12-29 15:16 | NUR ---
Activity- "Can I get up and walk"? Patient wanted to know if he could get out of bed and go for a walk. Ambulated in hallway with oxygen and standby assist. Tolerated activity well, without complaint of shortness of breath. Sitting up at bedside for meals.
--- NOTE | 2016-12-29 15:54 | NUR ---
NUTRITION FOLLOW-UP: ASSESS: 81 YO male admitted for acute on chronic stage III renal failure. Pt has received temporary dialysis, but temp. dialysis cath was removed yesterday and renal function will continue to be monitored. Pt currently on a general diet as pt signed a diet against medical advice form as pt did not want to follow the renal/diabetic/heart healthy diet. 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 failure, CAD s/p CABG, HTN, upper GI bleed. LABS: Reviewed. BUN 28, Cr 3.45, Glu 140, Ca 8.1, Alb 2.5 MEDS: Reviewed. GI: BM x 2 (12/29) CURRENT WT: 71.3 kg. Admit wt: 82.8 kg. (wt decreased likely related to fluid removal with dialysis) DIET: General. Po intake is 25-100% of meals. EST. NEEDS (Acute/chronic kidney stage III): Kcals: 6846-6787 kcals (25-35 kcals/kg current BW) Protein: 60-70 g protein (0.8-1.0 g/kg current BW) - if pt is not on dialysis 85-105 g protein (1.2-1.5 g/kg current BW) - if pt does require dialysis again NUTRITION DIAGNOSIS: 1.) Increased nutrient needs related to increased demand for nutrients as evidenced by acute on chronic kidney disease--PERSISTS. NUTRITION INTERVENTION: 1.) Will change nepro back to suplena as pt is no longer receiving dialysis at this time. However, as pt has signed diet against medical advice, ensure could be substituted for Suplena if pt desires. MONITOR / EVAL: PO intake, labs, nutritional status. Follow per moderate nutritional risk guidelines.
--- NOTE | 2016-12-29 16:12 | PCM.PNMED ---
Subjective Date of Service Dec 29, 2016 Subjective Patient's strength is back, he does not have any dyspnea, chest pain, nausea or vomiting. He is kind of anxious to discharge Exam Vital Signs Vital Sign - Last Date Time Temp Pulse Resp B/P Pulse Ox O2 Delivery O2 Flow Rate FiO2 12/29/16 13:20 36.6 69 18 113/55 96 Nasal Cannula 1.50 Intake and Output 12/28/16 12/28/16 12/29/16 Cumulative From/Thru 15:00 23:00 07:00 12/21/16 12:55 - 12/29/16 06:33 Intake Total 240 ml 318 ml 7282 ml Output Total 3000 ml 17639 ml Balance -2760 ml 318 ml -15434 ml Intake Oral 240 ml 318 ml 6788 ml IV Total 194 ml Packed Cells 300 ml Output Urine Total 8078 ml Ultrafiltrate 3000 ml 00018 ml # Voids 2 2 11 # Bowel Movements 2 2 17 Exam General: Alert, Cooperative, No acute Distress, thin frail elderly male sitting up at bedside interacting with his daughter who is in the room Eyes: Eyes open, conjunctiva clear, pupils equal eyes track symmetrically, no discharge Neck: Supple, trachea midline Chest & Lungs: Clear to auscultation bilat no accessory muscle usage no evidence of respiratory distress Cardiovascular: Regular Rate/Rhythm no murmur or gallop auscultated Abdomen: Soft, Non-tender, Non-distended, Normoactive bowel tones. Musculoskeletal: Unremarkable. Normal range of motion, no swollen or erythematous joints Skin: No rashes. Neurological: Grossly neurologically intact Psych: 12/29 awake and interactive but a man of few words Lab and Diagnostics Result Diagram: 12/28/16 0610 12/29/16 1055 X-Rays, CTs and MRIs X-RAY CHEST ONE VIEW, PORTABLE 12/21/16 IMPRESSION: Patchy airspace opacity in the right lung base suspicious for pneumonia. A small right-sided pleural effusion. Dictated by: Edilia Mendoza MD, PhD on 12/21/2016 at 14:50 Approved by: Edilia Mendoza MD, PhD on 12/21/2016 at 14:51 Assessment & Plan 81 year old male with Congestive heart failure, Coronary artery disease, COPD and chronic respiratory failure, Diabetes who presents to [facility] emergency department complaining of generalized weakness 12/29 make sure the patient continues to ambulate by all measures he is sufficiently strong to go home when he was checked last week. Dialysis catheter was removed, we are watching him for a few more days to determine whether his renal function will improve and/or whether he will require long- term dialysis. His breathing and O2 needs are down as his weight is down to 68 kg down from approximately 75kg on admission. He is fluid positive daily he will likely need diuretics sooner than later for fluid balance. # Acute Kidney Injury on chronic kidney disease, stage III. present on admission. ongoing - Etiology probable ATN, - nephrology consulting 12/23 to present - HD 12/25-12/28 catheter out of groin 12/28 - Vasculitis, panel negative., Renal ultrasound without acute finding - monitor urine output #Acute weakness-seems to have improved since the patient was dialyzed, ? Acute CHF from volume overload versus uremia? Patient ambulating over 400 feet as of 12/26 # Acute Anion gap metabolic acidosis with a lactate level of 5.0. present on admission. resolved. - Likely tissue hypoxia. NO clear infection identified at this time - Resolved # Chronic systolic heart failure with possible acute exacerbation. - Dyspnea with increasing leg edema. Patient on Torsemide as outpatient - on hemodialysis for treatments and catheter came out 12/28 - Diuretics per nephrology 12/29 # Elevated troponin. Present on admission-no new symptoms no further pursuit of present 12/29 - Echo 12/22/16: EF 35 +/- 5%. "Flattened septum is consistent with RV pressure/ volume overload. Lateral wall is mildly hypokinetic with thinning and akinesis of the majority of the inferior and posterior hough." - new chest discomfort yesterday possibly due to worsening anemia. Did not have CP before presentation - transfuse PRBC and consider further cardiology consult if symptoms reoccur - ekg if having cp sx # Anemia, likely chronic. Present on admission. Hemoglobin approximately stable now - worsening anemia without any obvious source of active bleeding, received 1 unit of PRBCs 12/23 - Previous history of Upper GI bleeding from gastritis -Hg 8.3 kind of stable 12/29 # Thrombocytopenia. Present on admission - Likely chronic and likely related to cirrhosis - monitor for bleeding with worsening uremia platelet dysfunction worsens # Diabetes Type 2 - low correction Lispro algorithm - HgA1c 6.7 -Blood sugars mostly under 150 last few days with a high of 233 in the evening # History of chronic obstructive pulmonary disease - on home oxygen. 1.5 L 12/29 Dispo: 2-3 days pending above issues. medically complex patient GI Prophylaxis: H2 dylon VTE Prophylaxis: Sub-Q Heparin (Unfractionated) VTE Mechanical Devices: Intermittant Pneumatic CD Resuscitation Status: CPR: Attempt Resuscitation Phoenix Pacheco MD Dec 29, 2016 16:12
--- NOTE | 2016-12-29 16:41 | NUR ---
Social Work-continued d/c planning: Data:EMR reviewed. Pt is on day 8 of hospitalization for acute renal failure per H&P. Pt is not medically stable, anticipate several more days. PT worked with pt and are recommending home with HH. Referral has been made to [facility] for RN,Pt, OT. Nephrology following for dialysis needs. F2F in folder. SW will continue to follow. Assessment:Pt who would benefit from HH. Plan:Pt to discharge home when medically stable via POV. Referral made to [facility] for RN,PT, and OT. F2F in folder. SW will continue to follow. LOVE Isbell
[2016-12-30] VITALS (7 sets, daily range): BP systolic 108–164; BP diastolic 46–78; PULSE 65–96; RESP 18; O2SAT 93–99
[2016-12-30] MEDS: Heparin 5,000 Unit/mL Inj SUBQ SCH ×3 (01:00→16:50)
[2016-12-30] MEDS: LORazepam 0.5 mg Tablet PO PRN ×2 (03:14→21:15)
[2016-12-30] MEDS: Insulin LISPRO 300 Unit/3 mL Inj SUBQ SCH ×4 (08:00→21:09)
[2016-12-30] MEDS: Vitamin B Complex/Vit C Tablet PO SCH (08:18)
--- NOTE | 2016-12-30 13:35 | PCM.PNMED ---
Subjective Date of Service Dec 30, 2016 Subjective No complaints of chest pain, dyspnea, nausea or vomiting Exam Vital Signs Vital Sign - Last Date Time Temp Pulse Resp B/P Pulse Ox O2 Delivery O2 Flow Rate FiO2 12/30/16 13:25 36.7 65 18 142/52 93 Nasal Cannula 2.00 Intake and Output 12/29/16 12/29/16 12/30/16 Cumulative From/Thru 15:00 23:00 07:00 12/21/16 12:55 - 12/30/16 06:24 Intake Total 992 ml 218 ml 8492 ml Output Total 30523 ml Balance 992 ml 218 ml -9586 ml Intake Oral 992 ml 218 ml 7998 ml IV Total 194 ml Packed Cells 300 ml Output Urine Total 8078 ml Ultrafiltrate 43934 ml # Voids 2 2 15 # Bowel Movements 2 1 20 Exam General: Alert, Cooperative, No acute Distress, thin frail elderly male lying in bed Eyes: Patient kept his eyes closed level time I saw him eyelids were normal there was no discharge Neck: Supple, trachea midline Chest & Lungs: Clear to auscultation bilat no accessory muscle usage no evidence of respiratory distress Cardiovascular: Regular Rate/Rhythm no murmur or gallop auscultated Abdomen: Soft, Non-tender, Non-distended, Normoactive bowel tones. Musculoskeletal: Unremarkable. Normal range of motion, no swollen or erythematous joints Skin: No rashes. Neurological: Grossly neurologically intact Psych: Patient is pleasant enough but keeps his eyes closed and is a bit withdrawn it is hard to draw him out and get him to talk Lab and Diagnostics Result Diagram: 12/28/16 0610 12/30/16 0830 X-Rays, CTs and MRIs X-RAY CHEST ONE VIEW, PORTABLE 12/21/16 IMPRESSION: Patchy airspace opacity in the right lung base suspicious for pneumonia. A small right-sided pleural effusion. Dictated by: Edilia Mendoza MD, PhD on 12/21/2016 at 14:50 Approved by: Edilia Mendoza MD, PhD on 12/21/2016 at 14:51 Assessment & Plan 81 year old male with Congestive heart failure, Coronary artery disease, COPD and chronic respiratory failure, Diabetes who presents to [facility] emergency department complaining of generalized weakness 12/29 make sure the patient continues to ambulate by all measures he is sufficiently strong to go home when he was checked last week. Dialysis catheter was removed, we are watching him for a few more days to determine whether his renal function will improve and/or whether he will require long- term dialysis. His breathing and O2 needs are down as his weight is down to 68 kg down from approximately 75kg on admission. He is fluid positive daily he will likely need diuretics sooner than later for fluid balance. 12/30 clinically stable with worsening renal function likely to need long- term HD timing of catheter placement per nephrology. Labs pending for 12/31 daily. # Acute Kidney Injury on chronic kidney disease, stage III. present on admission. ongoing - Etiology probable ATN, - nephrology consulting 12/23 to present - HD 12/25-12/28 catheter out of groin 12/28 - Vasculitis, panel negative., Renal ultrasound without acute finding - monitor urine output -Creatinine worsening up to 4.21 12/30 patient likely to need long-term dialysis. Dr. Killian to decide upon timing of tunnel cath likely 12/31 #Acute weakness-seems to have improved since the patient was dialyzed, ? Acute CHF from volume overload versus uremia? Patient ambulating over 400 feet as of 12/26 # Acute Anion gap metabolic acidosis with a lactate level of 5.0. present on admission. resolved. - Likely tissue hypoxia. NO clear infection identified at this time - Resolved # Chronic systolic heart failure with possible acute exacerbation. - Dyspnea with increasing leg edema. Patient on Torsemide as outpatient - on hemodialysis for treatments and catheter came out 12/28 - Diuretics per nephrology 12/29 # Elevated troponin. Present on admission-no new symptoms no further pursuit of present 12/29 - Echo 12/22/16: EF 35 +/- 5%. "Flattened septum is consistent with RV pressure/ volume overload. Lateral wall is mildly hypokinetic with thinning and akinesis of the majority of the inferior and posterior hough." - new chest discomfort yesterday possibly due to worsening anemia. Did not have CP before presentation - transfuse PRBC and consider further cardiology consult if symptoms reoccur - ekg if having cp sx # Anemia, likely chronic. Present on admission. Hemoglobin approximately stable now - worsening anemia without any obvious source of active bleeding, received 1 unit of PRBCs 12/23 - Previous history of Upper GI bleeding from gastritis -Hg 8.3 kind of stable 12/29 # Thrombocytopenia. Present on admission - Likely chronic and likely related to cirrhosis - monitor for bleeding with worsening uremia platelet dysfunction worsens # Diabetes Type 2 - low correction Lispro algorithm - HgA1c 6.7 -Blood sugars mostly under 150 last few days with a high of 233 in the evening # History of chronic obstructive pulmonary disease - on home oxygen. 1.5 L 12/29 Dispo: 2-3 days pending above issues. medically complex patient GI Prophylaxis: H2 dylon VTE Prophylaxis: Sub-Q Heparin (Unfractionated) VTE Mechanical Devices: Intermittant Pneumatic CD Resuscitation Status: CPR: Attempt Resuscitation Phoenix Pacheco MD Dec 30, 2016 13:35
--- NOTE | 2016-12-30 17:18 | NUR ---
Activity/Output patient up in chair for meals. ambulated in monae 1 lap around unit, approx 400ft, with O2 via NC at 2L/min FWW and BSA. patient tolerated well. denied SOB. reports feeling fatigued after walking. patient contributed it to not being OOB for the last couple days. Minimal urine output on shift. 100ml of dark bob urine. continue to encourage ambulation, increased activity. monitor I&O's.
--- NOTE | 2016-12-30 17:42 | PCM.PNNEPH ---
Subjective Date of Service Dec 30, 2016 Subjective The patient offers no complaints today and states that he is getting up and ambulating without significant difficulties. He denies any chest pain, shortness of breath, cough, wheezing, difficulty sleeping. There is minimal urine output at best however his blood pressure has been a bit elevated also Exam Vital Signs Vital Sign - Last Date Time Temp Pulse Resp B/P Pulse Ox O2 Delivery O2 Flow Rate FiO2 12/30/16 13:25 36.7 65 18 142/52 93 Nasal Cannula 2.00 Intake and Output 12/29/16 12/29/16 12/30/16 Cumulative From/Thru 15:00 23:00 07:00 12/21/16 12:55 - 12/30/16 06:24 Intake Total 992 ml 218 ml 8492 ml Output Total 51476 ml Balance 992 ml 218 ml -9586 ml Intake Oral 992 ml 218 ml 7998 ml IV Total 194 ml Packed Cells 300 ml Output Urine Total 8078 ml Ultrafiltrate 90381 ml # Voids 2 2 15 # Bowel Movements 2 1 20 Exam HEENT examination is remarkable for pale sclera. Neck is supple without adenopathy thyromegaly or jugular venous distention. Lungs are clear to auscultation. Heart is regular rhythm; with a soft systolic murmur. Abdomen is soft without any tenderness rebound guarding masses or hepatosplenomegaly. She resides for any evidence of any clubbing cyanosis or edema. Lab and Diagnostics Result Diagram: 12/28/16 0610 12/30/16 0830 X-Rays, CTs and MRIs X-RAY CHEST ONE VIEW, PORTABLE 12/21/16 IMPRESSION: Patchy airspace opacity in the right lung base suspicious for pneumonia. A small right-sided pleural effusion. 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 Plan The patient will continue hyperbaric treatments. Will return () for treatment #() Killian,Jeevan D DO Dec 30, 2016 17:42
[2016-12-31] VITALS (9 sets, daily range): BP systolic 136–150; BP diastolic 62–72; PULSE 67–83; RESP 16–18; O2SAT 94–97
[2016-12-31] MEDS: Heparin 5,000 Unit/mL Inj SUBQ SCH ×3 (01:31→17:22)
--- NOTE | 2016-12-31 06:34 | NUR ---
Anxiety Pt reports some mild anxiety and request anti-anxiety medication. Ativan PO given x1, effective. Pt denies any pain and had uneventful night.
[2016-12-31] MEDS: Insulin LISPRO 300 Unit/3 mL Inj SUBQ SCH ×4 (08:00→21:08)
[2016-12-31 08:06] LABS: Phosphorus 2.9 mg/dL (2.5-4.9); Unsaturated Iron Binding 172.9 ug/dL
[2016-12-31] MEDS: Vitamin B Complex/Vit C Tablet PO SCH (08:27)
[2016-12-31] MEDS: LORazepam 0.5 mg Tablet PO PRN (08:27)
--- NOTE | 2016-12-31 11:37 | PCM.PNNEPH ---
Subjective Date of Service Dec 31, 2016 Subjective The patient's renal function has not recovered. He remains anuric. He denies any chest pain, shortness of breath, cough, wheezing, nausea, or vomiting. His systolic blood pressures evaluation between 30 and 140. His BUN and creatinine continued to increase. I have had a long discussion with the patient as to the likelihood of end-stage renal disease. As part of this discussion we discussed the need for dialysis and are dialysis educational staff it is going to meet with him this afternoon. In the interim I am going to make arrangements for him to receive a tunnel catheter tomorrow and restart dialysis. Exam Vital Signs Vital Sign - Last Date Time Temp Pulse Resp B/P Pulse Ox O2 Delivery O2 Flow Rate FiO2 12/31/16 08:20 Supplement Oxygen 12/31/16 08:19 36.8 74 16 142/62 95 2.00 Intake and Output 12/30/16 12/30/16 12/31/16 Cumulative From/Thru 15:00 23:00 07:00 12/21/16 12:55 - 12/31/16 06:21 Intake Total 1020 ml 200 ml 9712 ml Output Total 100 ml 175 ml 56488 ml Balance 920 ml 25 ml -8641 ml Intake Oral 1020 ml 200 ml 9218 ml IV Total 194 ml Packed Cells 300 ml Output Urine Total 100 ml 175 ml 8353 ml Ultrafiltrate 46113 ml # Voids 15 # Bowel Movements 1 2 23 Exam HEENT examination is remarkable for pale sclera and a mild uremic fetor. Neck is supple without adenopathy thyromegaly or jugular venous distention. Lungs are clear to auscultation. Heart was regular rhythmical with a soft systolic murmur. Abdomen is soft without any tenderness rebound guarding masses or hepatosplenomegaly. Extremities do not show any evidence of any clubbing cyanosis or edema however [id number] nails were noted. Lab and Diagnostics Result Diagram: 12/28/16 0610 12/31/16 0710 X-Rays, CTs and MRIs X-RAY CHEST ONE VIEW, PORTABLE 12/21/16 IMPRESSION: Patchy airspace opacity in the right lung base suspicious for pneumonia. A small right-sided pleural effusion. Dictated by: Edilia Mendoza MD, PhD on 12/21/2016 at 14:50 Approved by: Edilia Mendoza MD, PhD on 12/21/2016 at 14:51 Plan Impression Impression #1 acute tubular necrosis which appears to progress to end-stage renal disease. #2 cardiac renal syndrome #3 hypertension with hypertensive heart disease and hypertensive nephrosclerosis #4 anemia secondary to chronic kidney disease Recommendation #1 as noted above I will make arrangements for a tunnel catheter to be placed and start on chronic dialysis. I will also have the dialysis educational staff come over to discuss all aspects of end-stage renal disease with the patient. Once arrangements are made he can probably be discharged on Wednesday or Wednesday. Plan The patient will continue hyperbaric treatments. Will return () for treatment #() Jevean Killian DO Dec 31, 2016 11:37
[2016-12-31] MEDS ORDERED: Darbepoetin Alfa 60 mCg/0.3 mL Inj SUBQ ONE (11:40)
[2016-12-31] MEDS ORDERED: Iron Sucrose Inj 200 MG in 0.9% Sodium Chloride 100 ML IV ONE (11:40)
--- NOTE | 2016-12-31 18:10 | NUR ---
Activity Pt. standby assist today to bathroom and during ambulation. Steady gait. Denied pain today, but did c/o some anxiety. Treated with PO ativan.
--- NOTE | 2016-12-31 23:30 | PCM.PNMED ---
Subjective Date of Service Dec 31, 2016 Subjective Patient has no new complaints however is not feeling any better. He still complains of feeling very weak. Exam Vital Signs Vital Sign - Last Date Time Temp Pulse Resp B/P Pulse Ox O2 Delivery O2 Flow Rate FiO2 12/31/16 20:21 36.4 72 16 150/72 97 Nasal Cannula 2.00 Intake and Output 12/30/16 12/30/16 12/31/16 Cumulative From/Thru 15:00 23:00 07:00 12/21/16 12:55 - 12/31/16 06:21 Intake Total 1020 ml 200 ml 9712 ml Output Total 100 ml 175 ml 95998 ml Balance 920 ml 25 ml -8641 ml Intake Oral 1020 ml 200 ml 9218 ml IV Total 194 ml Packed Cells 300 ml Output Urine Total 100 ml 175 ml 8353 ml Ultrafiltrate 13637 ml # Voids 15 # Bowel Movements 1 2 23 Exam General: Patient is in no apparent distress lying on his right side in bed HEENT: Head is atraumatic and normocephalic. Eyes: Pupils are equally round and reactive to light and accommodation. Extraocular muscles are intact. Sclera are white, anicteric. Subconjunctival mucosa is pale. Ears and nose are unremarkable. Oropharynx: There is no mucosal lesions, there is no thrush, there is no pharyngitis. Mucosa is pale. Neck: Is supple, there are no nodes, or masses or tenderness. Chest: Is clear to auscultation and percussion. There are no rales, rhonchi, wheezes or rubs. Heart: Rate, rhythm is regular. There is no murmur, rub or gallop. Abdomen: Good bowel sounds are present. Abdomen is soft, nontender, no organomegaly or masses were appreciated. Extremities: Are symmetrical and well perfused. There is no edema, there is no cellulitis, no rash. Neurologic: There are no focal neurological deficits. Cranial nerves II through XII are intact. There are no sensory or motor deficits. Psychiatric: Patients mood is calm and shows no sign of agitation. Genital: Deferred Rectal: Deferred Lab and Diagnostics Result Diagram: 12/28/16 0610 12/31/16 0710 Microbiology Name: EMBER PANDEY Age/Sex: 81/M Attend Dr: Jourdan Dolan MD Acct: [id number] Unit: [id number] Status: ADM IN Location: [facility] [place] 3025-1 Re12/21/16 Disch: Specimen: [id number] Collected: 12/30/16 Status: COMP Req#: [id number] Received: 12/30/16 Source: STOOL Sp Desc : Subm Dr: Jourdan Dolan MD Ordered: WFOBT Procedure Result Verified Site Microbiology MAGDALENA OCCULT BLOOD IMMUNOCHEM Final 12/30/16 OCCULT BLD IMMUNOCHEMICAL POSITIVE REFERENCE INTERVAL NEGATIVE X-Rays, CTs and MRIs X-RAY CHEST ONE VIEW, PORTABLE 12/21/16 IMPRESSION: Patchy airspace opacity in the right lung base suspicious for pneumonia. A small right-sided pleural effusion. Dictated by: Edilia Mendoza MD, PhD on 12/21/2016 at 14:50 Approved by: Edilia Mendoza MD, PhD on 12/21/2016 at 14:51 Cardiac Echo Impressions Echocardiogram Report Name: EMBER PANDEY WStudy Date: 04/2017 Height: 70 in Hospital Exam Location: [facility] Weight: 178 lb Gender: Male BSA: 2.0 m2 : 1935 Age: 81 yrs BP: 139/57 mmHg Reason For Study: SHORTNESS OF BREATH Ordering Physician: Performed By: Shashi Mares Referring Physician: Geo SCHROEDER Interpretation Summary The left ventricle is mildly dilated. Left ventricular ejection fraction is estimated to be 35 +/- 5%. Flattened septum is consistent with RV pressure/volume overload. Lateral wall is mildly hypokinetic with thinning and akinesis of the majority of the inferior and posterior hoguh. There is a pacemaker lead in the right ventricle. Right ventricular systolic function is mildly reduced. Both atria are severely dilated. There is mild aortic valve sclerosis. There is mild aortic regurgitation. There is moderate to severe tricuspid regurgitation. The right ventricular systolic pressure is estimated at 47 mmHg assuming a right atrial pressure of 15 mm Hg. Compared to the prior echo exam, there has been an increase in the severity of pulmonary hypertension. There is mild mitral regurgitation. Compared to the prior echo study, there has been an increase in the severity of mitral regurgitation. Assessment & Plan The patient is a 81 year old male with Congestive heart failure, Coronary artery disease, COPD and chronic respiratory failure, Diabetes who presents to [facility] emergency department complaining of generalized weakness On 12/29/16 hospital staff made sure the patient continues to ambulate by all measures he is sufficiently strong to go home when he was checked last week. Dialysis catheter was removed, we are watching him for a few more days to determine whether his renal function will improve and/or whether he will require long-term dialysis. His breathing and O2 needs are down as his weight is down to 68 kg down from approximately 75kg on admission. He is fluid positive daily he will likely need diuretics sooner than later for fluid balance. On 12/30 patient was clinically stable with worsening renal function likely to need long-term HD timing of catheter placement per nephrology. Labs pending for 12/31 daily. # Acute Kidney Injury on chronic kidney disease, stage III. present on admission. ongoing - Etiology probable ATN, - nephrology consulting 12/23 to present - HD 12/25-12/28 catheter out of groin 12/28 - Vasculitis, panel negative., Renal ultrasound without acute finding - monitor urine output -Creatinine worsening up to 4.21 12/30 patient likely to need long-term dialysis. Dr. Killian has scheduled the patient for a hemodialysis catheter to be tunneled and placed 01/01/2017 # Acute weakness-seems to have improved since the patient was dialyzed, ? Acute CHF from volume overload versus uremia? Patient ambulating over 400 feet as of 12/26 # Acute Anion gap metabolic acidosis with a lactate level of 5.0. present on admission. resolved. - Likely tissue hypoxia. NO clear infection identified at this time - Resolved # Chronic systolic heart failure with possible acute exacerbation. - Dyspnea with increasing leg edema. Patient on Torsemide as outpatient - on hemodialysis for treatments and catheter came out 12/28 - Diuretics per nephrology 12/29 # Elevated troponin. Present on admission-no new symptoms no further pursuit of present 12/29/16 - Echo 12/22/16: EF 35 +/- 5%. "Flattened septum is consistent with RV pressure/ volume overload. Lateral wall is mildly hypokinetic with thinning and akinesis of the majority of the inferior and posterior hough." - new chest discomfort yesterday possibly due to worsening anemia. Did not have CP before presentation - transfuse PRBC and consider further cardiology consult if symptoms reoccur - ekg if having cp sx # Anemia, likely chronic. Present on admission. Hemoglobin approximately stable now - worsening anemia without any obvious source of active bleeding, received 1 unit of PRBCs 12/23 - Previous history of Upper GI bleeding from gastritis -Hg 8.3 kind of stable 12/29 # Thrombocytopenia. Present on admission - Likely chronic and likely related to cirrhosis - monitor for bleeding with worsening uremia platelet dysfunction worsens # Diabetes Type 2 - low correction Lispro algorithm - HgA1c 6.7 -Blood sugars mostly under 150 last few days with a high of 233 in the evening # History of chronic obstructive pulmonary disease - on home oxygen. 1.5 L 12/29 Dispo: 2-3 days pending above issues. medically complex patient Pain Evaluation: Adequate Pain Control GI Prophylaxis: H2 dylon VTE Prophylaxis: Sub-Q Heparin (Unfractionated) VTE Mechanical Devices: Intermittant Pneumatic CD Resuscitation Status: CPR: Attempt Resuscitation Florentino Cook MD Dec 31, 2016 23:30
[2017-01-01] VITALS (8 sets, daily range): BP systolic 129–145; BP diastolic 52–62; PULSE 59–89; RESP 16–18; O2SAT 95–100
--- NOTE | 2017-01-01 01:03 | NUR ---
NPO Pt placed on NPO status as of midnight for placement of tunnel catheter for restart of dialysis. Denies pain and anxiety at this time. Pt resting in bed without s/sx of discomfort and distress. care ongoing.
[2017-01-01] MEDS: Insulin LISPRO 300 Unit/3 mL Inj SUBQ SCH ×4 (08:00→22:00)
[2017-01-01] MEDS: Vitamin B Complex/Vit C Tablet PO SCH (08:30)
--- NOTE | 2017-01-01 10:41 | NUR ---
NUTRITION FOLLOW-UP: ASSESS: 81 YO male admitted for acute on chronic stage III renal failure. Pt is currently NPO to have tunnel cath placed for dialysis and he will have dialysis today as his disease has progressed to ESRD. Pt signed a diet against medical advice form as pt did not want to follow the renal/diabetic/heart healthy diet. PO has been good at ~50-100% of most meals. 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 failure, CAD s/p CABG, HTN, upper GI bleed. LABS: Reviewed. Na 130, Cl 94, Bun 64, Rod [employer] 6.15, Glu 118, Ca 8.1 MEDS: Reviewed. GI: BM x 1 (01/01) CURRENT WT: 72 kg. BMI 22.8kg/m2 Admit wt: 82.8 kg. (wt decreased likely related to fluid removal with dialysis) DIET: General. Po intake is 50-100% of meals. EST. NEEDS: Dialysis, ESRD Kcals: 0809-3865 kcals (30-35 kcals/kg current BW) Protein: 85-125 g protein (1.2-1.8 g/kg current BW) NUTRITION DIAGNOSIS: 1.) Increased nutrient needs related to increased demand for nutrients as evidenced by acute on chronic kidney disease--PERSISTS. NUTRITION INTERVENTION: 1.) Recommend advance diet when medically appropriate post tunnel cath placement 2.) Continue general diet per pt preference. PO is adequate MONITOR / EVAL: Dialysis, PO intake, labs, wt, GI, nutritional status. Follow per moderate nutritional risk guidelines.
--- NOTE | 2017-01-01 11:28 | PCM.PNNEPH ---
Subjective Date of Service Jan 01, 2017 Subjective Patient is doing well today and is scheduled to have a tunnel catheter placed. Arrangements have been made for him to start dialysis and her chronic dialysis unit next Wednesday. Once again he has had minimal urine output however his blood pressures have been good and have averaged in the 120 range. He denies any nausea, vomiting, chest pain, or shortness of breath. This morning his sodium is 1:30, potassium 4.1, chloride of 94, bicarbonate 21, BUN and creatinine were 64 and 6.1 respectively. Exam Vital Signs Vital Sign - Last Date Time Temp Pulse Resp B/P Pulse Ox O2 Delivery O2 Flow Rate FiO2 01/01/17 09:50 36.6 87 16 132/52 97 Nasal Cannula 2.00 Intake and Output 12/31/16 12/31/16 01/01/17 Cumulative From/Thru 15:00 23:00 07:00 12/21/16 12:55 - 01/01/17 06:58 Intake Total 640 ml 0 ml 13989 ml Output Total 75 ml 35792 ml Balance 640 ml -75 ml -8076 ml Intake Oral 500 ml 0 ml 9718 ml IV Total 140 ml 334 ml Packed Cells 300 ml Output Urine Total 75 ml 8428 ml Ultrafiltrate 47418 ml # Voids 15 # Bowel Movements 2 1 26 Exam HEENT examination is remarkable for pale sclera and some bitemporal wasting. Neck is supple without adenopathy, thyromegaly, or jugular venous distention. Lungs are clear to auscultation. Heart was regular in rhythm with a soft systolic murmur. Abdomen is soft on any tenderness or rebound guarding masses or hepatosplenomegaly. Extremities did not show any evidence of any clubbing cyanosis or edema. Lab and Diagnostics Result Diagram: 12/28/1660901/01/17 0630 Microbiology Name: EMBER PANDEY Age/Sex: 81/M Attend Dr: Jourdan Dolan MD Acct: [id number] Unit: [id number] Status: AD[place] IN [place] [facility] [place]25-1 Re12/21/16 Disch: Specimen: [id number] Collected: 12/30/16 Status: COMP Req#: [id number] Received: 12/30/16 Source: STOOL Sp Desc : Subm Dr: Jourdan Dolan MD Ordered: WFOBT Procedure Result Verified Site Microbiology MAGDALENA OCCULT BLOOD IMMUNOCHEM Final 12/30/16 OCCULT BLD IMMUNOCHEMICAL POSITIVE REFERENCE INTERVAL NEGATIVE X-Rays, CTs and MRIs X-RAY CHEST ONE VIEW, PORTABLE 12/21/16 IMPRESSION: Patchy airspace opacity in the right lung base suspicious for pneumonia. A small right-sided pleural effusion. Dictated by: Edilia Mendoza MD, PhD on 12/21/2016 at 14:50 Approved by: Edilia Mendoza MD, PhD on 12/21/2016 at 14:51 Cardiac Echo Impressions Echocardiogram Report Name: EMBER PANDEY WStudy Date: 04/2017 Height: 70 in Hospital Exam Location: [facility] Weight: 178 lb Gender: Male BSA: 2.0 m2 : 1935 Age: 81 yrs BP: 139/57 mmHg Reason For Study: SHORTNESS OF BREATH Ordering Physician: Performed By: Shahsi Mares Referring Physician: Geo SCHROEDER Interpretation Summary The left ventricle is mildly dilated. Left ventricular ejection fraction is estimated to be 35 +/- 5%. Flattened septum is consistent with RV pressure/volume overload. Lateral wall is mildly hypokinetic with thinning and akinesis of the majority of the inferior and posterior hough. There is a pacemaker lead in the right ventricle. Right ventricular systolic function is mildly reduced. Both atria are severely dilated. There is mild aortic valve sclerosis. There is mild aortic regurgitation. There is moderate to severe tricuspid regurgitation. The right ventricular systolic pressure is estimated at 47 mmHg assuming a right atrial pressure of 15 mm Hg. Compared to the prior echo exam, there has been an increase in the severity of pulmonary hypertension. There is mild mitral regurgitation. Compared to the prior echo study, there has been an increase in the severity of mitral regurgitation. Plan Impression Impression #1 end-stage renal disease dialysis dependent number to cardiorenal syndrome #3 hypertension with hypertensive heart disease and hypertensive nephrosclerosis Recommendations #1 patient to be dialyzed today for 4 hours on a revaclear max dialyzer, 3 potassium, no heartburn, and we will try to taper, 2 L off. Most likely he will have a short treatment tomorrow prior to discharge. Plan The patient will continue hyperbaric treatments. Will return () for treatment #() Jeevan Killian DO Jan 01, 2017 11:28
[2017-01-01] MEDS ORDERED: 0.9% Sodium Chloride 0 ML ONE (12:28)
[2017-01-01] MEDS ORDERED: Heparin 1,000 Unit/mL 10 mL Inj ONE ×3 (12:28→15:38)
--- NOTE | 2017-01-01 15:34 | NUR ---
Pt off floor to catheter builder. likely head to HD following recovery
[2017-01-01] MEDS ORDERED: fentaNYL-PF 50 mCg/mL 2 mL Inj ONE (15:35)
--- NOTE | 2017-01-01 16:37 | DRSVH ---
PROCEDURE: CV TUNNEL CATH PLCMNT 1. Sonographic guidance for venous access. 2. Conscious sedation for 34 minutes. 3. Right internal jugular vein tunneled hemodialysis catheter placement. 4. Fluoroscopic guidance for catheter placement. INDICATIONS: ESRD TECHNIQUE: The indications, alternatives, benefits, risks, and complications of the procedure were e xplained to the patient and any family members present. Informed written consent was obtained and pl aced in the chart. The patient was brought to the angiography suite, and conscious sedation was admi nistered intravenously by snf staff, while continuous cardiorespiratory monitoring was pe rformed. Maximum sterile barrier technique was employed per standard protocol, including hand hygiene, cap, ma sk, sterile gown and gloves, and 2% chlorhexidine. Sterile ultrasound probe cover was also utilized. 1% lidocaine was used for local anaesthesia. Under sonographic guidance, the right internal jugular vein was accessed with a Micropuncture set. An 0.035J wire was advanced into the vena cava. Subcuta neous tunnel was created within the right anterior chest wall, through which a 14.5 Mongolian double lum en tunneled hemodialysis catheter was advanced. Following sequential venotomy tract dilation, the ca theter was advanced through the peel-away sheath and the tip was placed at the cavoatrial junction. Peel-away sheath was removed. Adequate flow was obtained through both lumens of the catheter. The v enotomy was closed with Vicryl, and the catheter was fastened to the skin with Ticron. Both lumens w ere flushed with heparinized saline. The patient tolerated the procedure without difficulty and was in stable condition at the conclusion of the procedure. COMPARISON: None. FINDINGS: The right internal jugular vein is patent by ultrasound. Fluoroscopic imaging demonstrates tip of th e catheter at the cavoatrial junction. IMPRESSION: Right internal jugular vein tunneled hemodialysis catheter placement using sonographic and fluoroscop ic guidance. Dictated by: Judith Snyder M.D. on 01/01/2017 at 16:35 Approved by: Judith Snyder M.D. on 01/01/2017 at 16:35
--- NOTE | 2017-01-01 17:20 | NUR ---
Gave report to MOC RN as pt went straight to dialysis from tunnel cath placement
--- NOTE | 2017-01-01 20:01 | PCM.PNMED ---
Subjective Date of Service Jan 01, 2017 Subjective Patient complains of diarrhea. He states that he had 4 bowel movements this and at 10 minutes prior to my entrance into the room today. He states that this is been going on for some time. He has no other new complaints. Exam Vital Signs Vital Sign - Last Date Time Temp Pulse Resp B/P Pulse Ox O2 Delivery O2 Flow Rate FiO2 01/01/17 16:37 61 01/01/17 13:56 36.7 18 145/56 97 Nasal Cannula 2.00 Intake and Output 12/31/16 12/31/16 01/01/17 Cumulative From/Thru 15:00 23:00 07:00 12/21/16 12:55 - 01/01/17 06:58 Intake Total 640 ml 0 ml 33000 ml Output Total 75 ml 04183 ml Balance 640 ml -75 ml -8076 ml Intake Oral 500 ml 0 ml 9718 ml IV Total 140 ml 334 ml Packed Cells 300 ml Output Urine Total 75 ml 8428 ml Ultrafiltrate 47000 ml # Voids 15 # Bowel Movements 2 1 26 Exam General: Patient is in no apparent distress lying supine in bed HEENT: Head is atraumatic and normocephalic. Eyes: Pupils are equally round and reactive to light and accommodation. Extraocular muscles are intact. Sclera are white, anicteric. Subconjunctival mucosa is pale. Ears and nose are unremarkable. Oropharynx: There is no mucosal lesions, there is no thrush, there is no pharyngitis. Mucosa is pale. Neck: Is supple, there are no nodes, or masses or tenderness. Chest: Is clear to auscultation and percussion. There are no rales, rhonchi, wheezes or rubs. Heart: Rate, rhythm is regular. There is no new murmur, rub or gallop. Abdomen: Good bowel sounds are present. Abdomen is soft, nontender, no organomegaly or masses were appreciated. Extremities: Are symmetrical and well perfused. There is no edema, there is no cellulitis, no rash. Neurologic: There are no focal neurological deficits. Cranial nerves II through XII are intact. There are no sensory or motor deficits. Psychiatric: Patients mood is calm and shows no sign of agitation. Genital: Deferred Rectal: Deferred Lab and Diagnostics Result Diagram: 12/28/16 0610 01/01/17 0630 Microbiology Name: EMBER PANDEY Age/Sex: 81/M Attend Dr: Jourdan Dolan MD Acct: [id number] Unit: [id number] Status: ADM IN Location: [facility] [place] 3025-1 Re12/21/16 Disch: Specimen: [id number] Collected: 12/30/16 Status: COMP Req#: [id number] Received: 12/30/16 Source: STOOL Sp Desc : Subm Dr: Jourdan Dolan MD Ordered: WFOBT Procedure Result Verified Site Microbiology MAGDALENA OCCULT BLOOD IMMUNOCHEM Final 12/30/16-0833 OCCULT BLD IMMUNOCHEMICAL POSITIVE REFERENCE INTERVAL NEGATIVE X-Rays, CTs and MRIs X-RAY CHEST ONE VIEW, PORTABLE 12/21/16 IMPRESSION: Patchy airspace opacity in the right lung base suspicious for pneumonia. A small right-sided pleural effusion. Dictated by: Edilia Mendoza MD, PhD on 12/21/2016 at 14:50 Approved by: Edilia Mendoza MD, PhD on 12/21/2016 at 14:51 Cardiac Echo Impressions Echocardiogram Report Name: EMBER PANDEY WStudy Date: 04/2017 Height: 70 in Hospital Exam Location: [facility] Weight: 178 lb Gender: Male BSA: 2.0 m2 : 1935 Age: 81 yrs BP: 139/57 mmHg Reason For Study: SHORTNESS OF BREATH Ordering Physician: Performed By: Shashi Mares Referring Physician: Geo SCHROEDER Interpretation Summary The left ventricle is mildly dilated. Left ventricular ejection fraction is estimated to be 35 +/- 5%. Flattened septum is consistent with RV pressure/volume overload. Lateral wall is mildly hypokinetic with thinning and akinesis of the majority of the inferior and posterior hough. There is a pacemaker lead in the right ventricle. Right ventricular systolic function is mildly reduced. Both atria are severely dilated. There is mild aortic valve sclerosis. There is mild aortic regurgitation. There is moderate to severe tricuspid regurgitation. The right ventricular systolic pressure is estimated at 47 mmHg assuming a right atrial pressure of 15 mm Hg. Compared to the prior echo exam, there has been an increase in the severity of pulmonary hypertension. There is mild mitral regurgitation. Compared to the prior echo study, there has been an increase in the severity of mitral regurgitation. Assessment & Plan The patient is a 81 year old male with Congestive heart failure, Coronary artery disease, COPD and chronic respiratory failure, Diabetes who presents to [facility] emergency department complaining of generalized weakness On 12/29/16 the hospital staff made sure the patient continues to ambulate by all measures he is sufficiently strong to go home when he was checked last week. Dialysis catheter was removed, we are watching him for a few more days to determine whether his renal function will improve and/or whether he will require long-term dialysis. His breathing and O2 needs are down as his weight is down to 68 kg down from approximately 75kg on admission. He is fluid positive daily he will likely need diuretics or dialysis sooner than later for fluid balance. On 12/30 patient was clinically stable with worsening renal function likely to need long-term HD timing of catheter placement per nephrology. . # Acute Kidney Injury on chronic kidney disease, stage III. present on admission. ongoing - Etiology probable ATN, - Nephrology consulting 12/23 to present - HD 12/25-12/28 catheter out of groin 12/28 - Vasculitis, panel negative., Renal ultrasound without acute finding - We will continue to monitor urine output -Creatinine worsening up to 4.21 12/30 patient likely to need long-term dialysis. Dr. Killian has scheduled the patient for a hemodialysis catheter to be tunneled and placed 01/01/2017 # Acute weakness-seems to have improved since the patient was dialyzed initially. However, he appears to be very weak at this time. Acute CHF from volume overload versus uremia? Patient ambulating over 400 feet as of 12/26 # Acute Anion gap metabolic acidosis with a lactate level of 5.0. present on admission. resolved. - Likely tissue hypoxia. NO clear infection identified at this time - Resolved # Chronic systolic heart failure with possible acute exacerbation. - Dyspnea with increasing leg edema. Patient on Torsemide as outpatient - Patient was on hemodialysis for treatments and catheter came out 12/28 - Diuretics per nephrology started 12/29 # Elevated troponin. Present on admission-no new symptoms no further pursuit of present 12/29/16 - Echo 12/22/16: EF 35 +/- 5%. "Flattened septum is consistent with RV pressure/ volume overload. Lateral wall is mildly hypokinetic with thinning and akinesis of the majority of the inferior and posterior hough." - new chest discomfort yesterday possibly due to worsening anemia. Did not have CP before presentation - transfuse PRBC and consider further cardiology consult if symptoms reoccur - ekg if having cp sx # Anemia, likely chronic. Present on admission. Hemoglobin appears stable now - Initially patient had worsening anemia without any obvious source of active bleeding, received 1 unit of PRBCs 12/23 - Previous history of Upper GI bleeding from gastritis - Hgb 8.3 stable on 12/29 - We will check CBC in a.m. # Thrombocytopenia. Present on admission - Likely chronic and likely related to cirrhosis - We will continue to monitor for bleeding as with worsening uremia the platelet dysfunction tends to worsen # Diabetes Type 2 - low correction Lispro algorithm - HgA1c 6.7 -Blood sugars mostly under 150 last few days with a high of 233 in the evening # History of chronic obstructive pulmonary disease - on home oxygen. 1.5 L 12/29 Dispo: Anticipate hospitalization another 1-2 days pending above issues. This is a medically complex patient . Pain Evaluation: Adequate Pain Control GI Prophylaxis: H2 dylon VTE Prophylaxis: Sub-Q Heparin (Unfractionated) VTE Mechanical Devices: Intermittant Pneumatic CD Resuscitation Status: CPR: Attempt Resuscitation Florentino Cook MD Jan 01, 2017 20:01
[2017-01-01] MEDS: Heparin 5,000 Unit/mL Inj SUBQ SCH (20:30)
--- NOTE | 2017-01-01 21:05 | NUR ---
Dialysis note: S/P catheter placement. 4 hrs tx. 3000 ml net UF. Right catheter, dsg changed, sutures intact. Pls see DTR for VS details. Qb 400-500. No heparin given. O2 @ 2L via NC on. Tolerated tx, slept at intervals. Catheter flushed, heparin dwelled and secured. Report given to Marisa Lino RN. Stable at time of transfer.
--- NOTE | 2017-01-01 22:42 | NUR ---
Patient back from Dialysis Patient brought back to room from dialysis at 2130. Patient alert x 3, denied any pain, SOB or nausea. Patient was provided dinner tray and BG was 100.
[2017-01-02 01:27] VITALS: BP 112/50; PULSE 77; RESP 18; O2SAT 94
[2017-01-02 05:48] VITALS: BP 133/61; PULSE 71; RESP 18; O2SAT 97
[2017-01-02 05:52] VITALS: PULSE 73
[2017-01-02 06:22] LABS: BASOPHILS % (AUTO) 0.2 % (0-3); EOSINOPHILS % (AUTO) 1.5 % (0-5); MONOCYTES % (AUTO) 7.6 % (4-12); Mean Corpuscular Hemoglobin 28.6 pg (27.0-35.0); Mean Corpuscular Volume 91.8 fL (81-100); NEUTROPHILS % (AUTO) 77.9 % (40-74); Platelet Count 137 bil/L (150-400)
[2017-01-02 06:30] LABS: Magnesium 1.5 mg/dL (1.6-2.6); Phosphorus 2.9 mg/dL (2.5-4.9)
[2017-01-02] MEDS: Heparin 5,000 Unit/mL Inj SUBQ SCH (08:34)
[2017-01-02] MEDS: Vitamin B Complex/Vit C Tablet PO SCH (08:34)
[2017-01-02] MEDS: Insulin LISPRO 300 Unit/3 mL Inj SUBQ SCH ×3 (08:35→17:11)
[2017-01-02] MEDS ORDERED: Magnesium Sulf 2 Gm/50mL Water 2 GM in IV Premix 1 EACH IV ONE (08:45)
--- NOTE | 2017-01-02 09:10 | NUR ---
FRIDA signed LOVE Toussaint
--- NOTE | 2017-01-02 10:10 | PCM.PNNEPH ---
Subjective Date of Service Jan 02, 2017 Subjective Patient continues to do well. He is scheduled for discharge today following his dialysis treatment. He is to follow-up at our outpatient dialysis unit on Wednesday. Exam Vital Signs Vital Sign - Last Date Time Temp Pulse Resp B/P Pulse Ox O2 Delivery O2 Flow Rate FiO2 01/02/17 05:52 73 01/02/17 05:48 37.2 18 133/61 97 Nasal Cannula 2.00 Intake and Output 01/01/17 01/01/17 01/02/17 Cumulative From/Thru 15:00 23:00 07:00 12/21/16 12:55 - 01/02/17 06:56 Intake Total 0 ml 300 ml 03527 ml Output Total 3150 ml 15 ml 89089 ml Balance -3150 ml 285 ml -90073 ml Intake Oral 0 ml 300 ml 61750 ml IV Total 334 ml Packed Cells 300 ml Output Urine Total 150 ml 15 ml 8593 ml Ultrafiltrate 3000 ml 14725 ml # Voids 15 # Bowel Movements 4 1 31 Exam Lungs were clear to auscultation. Heart is regular and rhythmical with a soft systolic murmur. Abdomen is soft without any tenderness rebound or guarding. Extremities do not show any evidence of any edema. Lab and Diagnostics Result Diagram: 01/02/17 0550 01/02/17 0550 Microbiology Name: ESASTANLEYAlessandraEMBER W Age/Sex: 81/M Attend Dr: Jourdan Dolan MD Acct: [id number] Unit: [id number] Status: ADM IN Location: [facility] 3025-1 Re12/21/16 Disch: Specimen: [id number] Collected: 12/30/16 Status: COMP Req#: [id number] Received: 12/30/16 Source: STOOL Sp Desc : Subm Dr: Jourdan Dolan MD Ordered: WFOBT Procedure Result Verified Site Microbiology MAGDALENA OCCULT BLOOD IMMUNOCHEM Final 12/30/16 OCCULT BLD IMMUNOCHEMICAL POSITIVE REFERENCE INTERVAL NEGATIVE X-Rays, CTs and MRIs X-RAY CHEST ONE VIEW, PORTABLE 12/21/16 IMPRESSION: Patchy airspace opacity in the right lung base suspicious for pneumonia. A small right-sided pleural effusion. Dictated by: Edilia Mendoza MD, PhD on 12/21/2016 at 14:50 Approved by: Edilia Mendoza MD, PhD on 12/21/2016 at 14:51 Cardiac Echo Impressions Echocardiogram Report Name: EMBER PANDEYtudy Date: 04/2017 Height: 70 in Hospital Exam Location: [facility] Weight: 178 lb Gender: Male BSA: 2.0 m2 : 1935 Age: 81 yrs BP: 139/57 mmHg Reason For Study: SHORTNESS OF BREATH Ordering Physician: Performed By: Shashi Mares Referring Physician: Geo SCHROEDER Interpretation Summary The left ventricle is mildly dilated. Left ventricular ejection fraction is estimated to be 35 +/- 5%. Flattened septum is consistent with RV pressure/volume overload. Lateral wall is mildly hypokinetic with thinning and akinesis of the majority of the inferior and posterior hough. There is a pacemaker lead in the right ventricle. Right ventricular systolic function is mildly reduced. Both atria are severely dilated. There is mild aortic valve sclerosis. There is mild aortic regurgitation. There is moderate to severe tricuspid regurgitation. The right ventricular systolic pressure is estimated at 47 mmHg assuming a right atrial pressure of 15 mm Hg. Compared to the prior echo exam, there has been an increase in the severity of pulmonary hypertension. There is mild mitral regurgitation. Compared to the prior echo study, there has been an increase in the severity of mitral regurgitation. Plan Impression Impression #1 end-stage renal disease dialysis dependent Recommendations #1 patient is dialyzed today for 2 and half hours on a 3 potassium bath. Will receive thousand units of heparin as a loading dose will try to take 1 kg fluid off. Following his dialysis treatment he can be discharged. Jeevan Killian DO Jan 02, 2017 10:10
[2017-01-02 10:14] VITALS: BP 129/67; PULSE 78; RESP 18; O2SAT 95
[2017-01-02 10:28] VITALS: PULSE 68
[2017-01-02 10:37] VITALS: BP 109/56; PULSE 60
[2017-01-02] MEDS ORDERED: Magnesium Sulf 4 Gm/100 mL D5W Premix IV ONE (10:55)
--- NOTE | 2017-01-02 11:26 | NUR ---
Dialysis [facility] patient at [facility] having dialysis. Report received from [facility] [place]. On Telemetry for cardiac monitoring. Vital signs monitoring by dialysis nurse. Magnesium started as ordered during dialysis. no sign and symptoms of pain noted or reported by patient during dialysis. patient laying comfortably and having dialysis a this time.
--- NOTE | 2017-01-02 13:11 | NUR ---
Report to [facility] [place] nurse patient is done with dialysis. per dialysis nurse one liter out. BP 121/56. blood sugar 105 stable. no sign and symptoms of pain or reports of pain noted. Report given to charge nurse and aware.
--- NOTE | 2017-01-02 13:25 | NUR ---
Dialysis note: 2 1/2 hrs tx. 1000 ml net UF. Right catheter, dsg dry and intact. Pls see DTR for VS details. Qb 400-500. Heparin prime given. O2 @ 2L via NC on. Tolerated tx, slept at intervals. Catheter flushed, heparin dwelled and secured. Report given to Jose Bob RN. Stable at time of transfer.
--- NOTE | 2017-01-02 14:46 | NUR ---
Social Work: Discharge Data: Pt is on day 12 of hospitalization. EMR reviewed. SHOPPER'S AIDE met with pt at bedside to discuss d/c plan and explained that PT no longer recommends HH for him. Pt states understanding and requested SHOPPER'S AIDE call his daughter to explain this to her as well. SHOPPER'S AIDE called pt's daughter, who also states understanding and that she plans to be at the hospital to pick him up around 5pm. No further d/c planning needs at this time. SHOPPER'S AIDE will continue to follow if needs arise. Assessment: Pt who is independent at baseline. Plan: Pt will d/c home via POV with his daughter after dialysis. No further d/c planning needs at this time. SHOPPER'S AIDE will continue to follow if needs arise. LOVE Toussaint
--- NOTE | 2017-01-02 16:35 | PCM.DIMED ---
Discharge Instructions Date of Service Jan 02, 2017 Dates of Hospitalization Dec 21, 2016 at 17:24 Discharge Diagnosis Discharge Diagnosis End Stage Renal Disease Diet Heart Healthy, Renal Diet Activity No restrictions (Patient may return to his usual activities gradually as tolerated.) Call your provider Fever or Chills, Shortness of breath, Bleeding, Chest pain, Vomitting, Excessive diarrhea, Weakness (unilateral) Patient Instructions Follow-up Provider: Csasandra Miller MD Follow-up with PCP in: 1 week Provider: Jeevan Killian DO Follow-up in: 1 week (Patient is to follow up for hemodialysis as scheduled) Florentino Cook MD Jan 02, 2017 16:35
[2017-01-02] MEDS ORDERED: INSLIS SUBQ (16:42)
[2017-01-02] MEDS ORDERED: LABE100T4 PO (16:42)
--- NOTE | 2017-01-02 17:54 | NUR ---
Discharge Reviewed d/c instructions with pt and daughter in room including care notes and new prescriptions, pt signed and given originals, copies to chart. IV d/c intact, tele removed. VS stable at time of d/c. All belongings packed by pt and family in room and taken with them. Pt's daughter to drive pt home.
--- NOTE | 2017-01-02 22:44 | PCM.DC.MED ---
Discharge Summary Date of Service Jan 02, 2017 Dates of Hospitalization Date of Hospital Admission Dec 21, 2016 at 17:24 Date of Discharge: Jan 02, 2017 Providers: Admitting Physician: Jourdan Dolan MD Primary Care Physician: Nopcp Attending Physician: Jourdan Dolan MD Diagnosis at Time of Discharge Diagnosis at Time of Discharge End Stage Renal Disease Consultations Nephrology Dr. Killian Procedures XRay, CTs & MRIs X-RAY CHEST ONE VIEW, PORTABLE 12/21/16 IMPRESSION: Patchy airspace opacity in the right lung base suspicious for pneumonia. A small right-sided pleural effusion. Dictated by: Edilia Mendoza MD, PhD on 12/21/2016 at 14:50 Approved by: Edilia Mendoza MD, PhD on 12/21/2016 at 14:51 Cardiac Echo Impression Echocardiogram Report Name: EMBER PANDEY WStudy Date: 04/2017 Height: 70 in Hospital Exam Location: [facility] Weight: 178 lb Gender: Male BSA: 2.0 m2 : 1935 Age: 81 yrs BP: 139/57 mmHg Reason For Study: SHORTNESS OF BREATH Ordering Physician: Performed By: Shashi Mares Referring Physician: Geo SCHROEDER Interpretation Summary The left ventricle is mildly dilated. Left ventricular ejection fraction is estimated to be 35 +/- 5%. Flattened septum is consistent with RV pressure/volume overload. Lateral wall is mildly hypokinetic with thinning and akinesis of the majority of the inferior and posterior hough. There is a pacemaker lead in the right ventricle. Right ventricular systolic function is mildly reduced. Both atria are severely dilated. There is mild aortic valve sclerosis. There is mild aortic regurgitation. There is moderate to severe tricuspid regurgitation. The right ventricular systolic pressure is estimated at 47 mmHg assuming a right atrial pressure of 15 mm Hg. Compared to the prior echo exam, there has been an increase in the severity of pulmonary hypertension. There is mild mitral regurgitation. Compared to the prior echo study, there has been an increase in the severity of mitral regurgitation. Brief History Patient is an 81-year-old male with history of CAD status post CABG, hypertension, CHF status post AICD, diabetes, COPD, PVD, stage IV colon cancer, upper GI bleed. Patient states over the last 2-3 weeks he has noticed increasing edema in his legs with associated shortness of breath and some dizziness. He started noticing in the last week or two his urine output was decreasing. Claims during this time he had upper respiratory infection symptoms i.e. nasal congestion, cough with productive green sputum. He denies fever or chills though he did metastases he has been having progressively worsening fatigue. His appetite is otherwise been good.. He does admit he has been having occasional sharp left-sided fleeting chest pains that are not associated with activity. Claims nothing made them better or worse. Claims he has been compliant with his medications but noticed the torsemide he usually takes was not helping with his edema. On December 21 the day of his admission claims he was feeling poorly was trying to walk to his car when he collapsed to his knees. He denies any syncope. She claims she has not been having any orthopnea or PND. He denies sleep apnea. Patient was admitted to the hospitalist service for further evaluation and treatment. Hospital Course The patient is a 81 year old male with Congestive heart failure, Coronary artery disease, COPD and chronic respiratory failure, Diabetes who presents to [facility] emergency department complaining of generalized weakness On 12/29/16 the hospital staff made sure the patient continues to ambulate by all measures he is sufficiently strong to go home when he was checked last week. Dialysis catheter was removed, we watched him for a few more days to determine whether his renal function will improve and/or whether he will require long-term dialysis. His breathing and O2 needs are down as his weight is down to 68 kg down from approximately 75kg on admission. He is fluid positive daily he will likely need diuretics or dialysis sooner than later for fluid balance. On 12/30 patient was clinically stable with worsening renal function likely to need long-term HD timing of catheter placement per nephrology. Patient had tunneled hemodialysis catheter placed and had hemodialysis today. . # Acute Kidney Injury on chronic kidney disease, stage III. present on admission. ongoing - Etiology probable ATN, - Nephrology consulting 12/23 to present - HD 12/25-12/28 catheter out of groin 12/28 - Vasculitis, panel negative., Renal ultrasound without acute finding - We will continue to monitor urine output -Creatinine worsening up to 4.21 12/30 patient likely to need long-term dialysis. Dr. Killian has scheduled the patient for a hemodialysis catheter to be tunneled and placed 01/01/2017 # Acute weakness-seems to have improved since the patient was dialyzed initially. However, he appears to be very weak at this time. Acute CHF from volume overload versus uremia? Patient ambulating over 400 feet as of 12/26 # Acute Anion gap metabolic acidosis with a lactate level of 5.0. present on admission. resolved. - Likely tissue hypoxia. NO clear infection identified at this time - Resolved # Chronic systolic heart failure with possible acute exacerbation. - Dyspnea with increasing leg edema. Patient on Torsemide as outpatient - Patient was on hemodialysis for treatments and catheter came out 12/28 - Diuretics per nephrology started 12/29 # Elevated troponin. Present on admission-no new symptoms no further pursuit of present 12/29/16 - Echo 12/22/16: EF 35 +/- 5%. "Flattened septum is consistent with RV pressure/ volume overload. Lateral wall is mildly hypokinetic with thinning and akinesis of the majority of the inferior and posterior hough." - new chest discomfort yesterday possibly due to worsening anemia. Did not have CP before presentation - transfuse PRBC and consider further cardiology consult if symptoms reoccur - ekg if having cp sx # Anemia, likely chronic. Present on admission. Hemoglobin appears stable now - Initially patient had worsening anemia without any obvious source of active bleeding, received 1 unit of PRBCs 12/23 - Previous history of Upper GI bleeding from gastritis - Hgb 8.3 stable on 12/29 - We will check CBC in a.m. # Thrombocytopenia. Present on admission - Likely chronic and likely related to cirrhosis - We will continue to monitor for bleeding as with worsening uremia the platelet dysfunction tends to worsen # Diabetes Type 2 - low correction Lispro algorithm - HgA1c 6.7 -Blood sugars mostly under 150 last few days with a high of 233 in the evening # History of chronic obstructive pulmonary disease - on home oxygen. 1.5 L 12/29 Dispo: Patient is rotated for discharge today according to nephrology. We will therefore discharge home and his daughter is coming to pick him up. He is not to drive and will be driven to dialysis by his daughter. Exam Vital Signs (Last) Date Time Temp Pulse Resp B/P Pulse Ox O2 Delivery O2 Flow Rate FiO2 01/02/17 10:37 60 01/02/17 10:14 36.9 18 129/67 95 Nasal Cannula 2.00 Exam General: Patient is in no apparent distress lying supine in bed HEENT: Head is atraumatic and normocephalic. Eyes: Pupils are equally round and reactive to light and accommodation. Extraocular muscles are intact. Sclera are white, anicteric. Subconjunctival mucosa is pale. Ears and nose are unremarkable. Oropharynx: There is no mucosal lesions, there is no thrush, there is no pharyngitis. Mucosa is pale. Neck: Is supple, there are no nodes, or masses or tenderness. Chest: Is clear to auscultation and percussion. There are no rales, rhonchi, wheezes or rubs. Patient has a new tunneled hemodialysis catheter in the right upper chest. Site is unremarkable and there is no evidence of any erythema. There is no evidence of any bleeding. Heart: Rate, rhythm is regular. There is no new murmur, rub or gallop. Abdomen: Good bowel sounds are present. Abdomen is soft, nontender, no organomegaly or masses were appreciated. Extremities: Are symmetrical and well perfused. There is no edema, there is no cellulitis, no rash. Neurologic: There are no focal neurological deficits. Cranial nerves II through XII are intact. There are no sensory or motor deficits. Psychiatric: Patients mood is calm and shows no sign of agitation. Genital: Deferred Rectal: Deferred Test 12/21/16 13:30 12/21/16 16:45 12/21/16 17:11 12/22/16 03:41 Hemoglobin A1c 6.7% (4.8-5.6) Ferritin 200ng/mL (30-400) Pro-B-Type Natriuretic Peptide 63099bv/mL (0-486) Lactic Acid Level 1.5mmol/L (0.4-2.0) Reticulocyte Count,Calculated 1.5% (0.6-2.6) Vitamin B12 Level 540pg/mL (211-946) Folate > 19.9ng/mL (>3.0) Urine Random Creatinine 114mg/dL (22-328) Urine Random Total Protein 35mg/dL (0-15) Urine Random Sodium 40mEq/L Test 12/22/16 09:08 12/22/16 11:21 12/22/16 13:59 12/23/16 06:35 Prothrombin Time 12.0sec (8.1-12.5) Prothromb Time International Ratio 1.12ratio Activated Partial Thromboplast Time 27.4sec (22.8-33.0) Total Creatine Kinase 22U/L (21-232) Urine Color Yellow (YELLOW) Urine Appearance Clear (CLEAR,HAZY) Urine pH 5.5 (5.0-8.0) Urine Specific [place] 1.015 (1.003-1.035) Urine Protein Negativemg/dL (NEG,TRACE) Urine Glucose (UA) Negativemg/dL (NEGATIVE) Urine Ketones Negativemg/dL (NEGATIVE) Urine Occult Blood Trace (NEGATIVE) Urine Nitrite Negative (NEGATIVE) Urine Bilirubin Negative (NEGATIVE) Urine Urobilinogen Normalmg/dL (NORMAL) Urine Leukocyte Esterase Negative (NEGATIVE) Urine RBC 0-2/hpf (0-2) Urine WBC 0-5/hpf (0-5) Urine Epithelial Cells Few/hpf (NONE-MOD) Urine Crystals None seen (NONE SEEN) Urine Bacteria Few/hpf (NONE-FEW) Urine Hyaline Casts None/lpf (NONE) Urine Granular Casts None seen (NONE SEEN) Urine Waxy Casts None seen (NONE SEEN) Urine Red Blood Cell Casts None seen (NONE SEEN) Urine White Blood Cell Casts None seen (NONE SEEN) Urine Mucus None seen (None Seen) Urine Trichomonas None seen (NONE SEEN) Urine Yeast None (NONE SEEN) Urinalysis Comment None Urine Culture Reflexed Not indicated Myeloperoxidase <9.0U/mL (0.0-9.0) Anti-Nuclear Antibody Screen Negative (Negative) Cytoplasmic ANCA (c-ANCA) Antibody <1:20titer (Neg:<1:20) Proteinase 3 (PR3) Antibodies <3.5U/mL (0.0-3.5) Atypical p-ANCA <1:20titer (Neg:<1:20) Perinuclear ANCA (p-ANCA) Antibody <1:20titer (Neg:<1:20) Anti-Glomerular Basement Memb Ab 5units (0-20) Complement C3 105mg/dL (82-167) Complement C4 18mg/dL (14-44) Hepatitis B Surface Antigen Negative (Negative) HIV (1&2) Ag and Ab, 4th Generation Non reactive (Non Reactive) Procalcitonin 0.28ng/mL (0.00-0.08) Parathyroid Hormone (Intact) 96pg/mL (15-65) Test 12/24/16 05:55 12/31/16 07:10 01/02/17 05:50 Troponin T 0.186ug/L (0.0-0.011) Iron Level 26ug/dL (35-150) Total Iron Binding Capacity 199ug/dL (250-450) Percent Iron Saturation 13%sat (15-50) Unsaturated Iron Binding 172.9ug/dL Hepatitis B Surface Antibody Reactive (.) Hepatitis B Core Total Antibody Positive (Negative) White Blood Count 10.2th/mm3 (3.8-10.1) Red Blood Count 2.94mil/mm3 (4.40-5.80) Hemoglobin 8.4g/dL (13.8-17.2) Hematocrit 27.0% (41.0-50.0) Mean Corpuscular Volume 91.8fL (81-100) Mean Corpuscular Hemoglobin 28.6pg (27.0-35.0) Mean Corpuscular Hemoglobin Concent 31.1% (32.0-37.0) Red Cell Distribution Width 20.1% (12.3-15.4) Platelet Count 137bil/L (150-400) Neutrophils (%) (Auto) 77.9% (40-74) Lymphocytes (%) (Auto) 12.6% (14-46) Monocytes (%) (Auto) 7.6% (4-12) Eosinophils (%) (Auto) 1.5% (0-5) Basophils (%) (Auto) 0.2% (0-3) Sodium Level 135mEq/L (134-144) Potassium Level 4.2mEq/L (3.5-5.2) Chloride Level 95mEq/L (97-108) Carbon Dioxide Level 25mmol/L (18-29) Blood Urea Nitrogen 23mg/dL (8-27) Creatinine 3.33mg/dL (0.76-1.27) Estimat Glomerular Filtration Rate 19mL/min (>59) Glucose Level 143mg/dL (60-99) Calcium Level 8.3mg/dL (8.5-10.1) Phosphorus Level 2.9mg/dL (2.5-4.9) Magnesium Level 1.5mg/dL (1.6-2.6) Total Bilirubin 1.9mg/dL (0.0-1.2) Aspartate Amino Transf (AST/SGOT) 20U/L (0-50) Alanine Aminotransferase (ALT/SGPT) 12U/L (0-44) Alkaline Phosphatase 268U/L (25-160) Total Protein 7.1g/dL (6.4-8.4) Albumin 2.5g/dL (3.4-5.0) Microbiology Results Name: EMBER PANDEY Age/Sex: 81/M Attend Dr: Jourdan Dolan MD Acct: [id number] Unit: [id number] Status: ADM IN Location: [facility] [place] 3025-1 Re12/21/16 Disch: Specimen: [id number] Collected: 12/30/16 Status: COMP Req#: [id number] Received: 12/30/16 Source: STOOL Sp Desc : Subm Dr: Jourdan Dolan MD Ordered: WFOBT Procedure Result Verified Site Microbiology MAGDALENA OCCULT BLOOD IMMUNOCHEM Final 12/30/16 OCCULT BLD IMMUNOCHEMICAL POSITIVE REFERENCE INTERVAL NEGATIVE Discharge Medications Discharge Medications Allopurinol (Allopurinol) 100 Mg Tablet 300 MG PO DAILY (Reported) Atorvastatin (Lipitor) 10 Mg Tab 10 MG PO HS (Reported) Cholecalciferol (Vitamin D3) (Vitamin D3) 1,000 Unit Tab.chew 3,000 UNIT PO DAILY (Reported) Insulin Human Lispro (HumaLOG U100 Insulin Vial) 100 Unit/Ml Unit 0 UNIT SUBQ WMHS Check blood sugars before meals and at bedtime. Use correction factor only before meals. Blood Sugar Lispro Correction: <151, 0 units; 151-175, 1 unit; 176-200, 2 units; 201-225, 3 units; 226-250, 4 units; 251-275, 5 units; 276-300 , 6 units; 301-325, 7 units; 326-350, 8 units; 351-375, 9 units; 376-400, 10 units; >400, 12 units. Prescribed by: LATRELL COOK MD Ipratropium/Albuterol Sulfate (Iprat-Albut 0.5-3(2.5) mg/3 mL Inhalant Soln) 3 Ml Ampul.neb 3 ML IH Q6 Prescribed by: GUNNAR NICOLE Labetalol (Labetalol) 100 Mg Tablet 100 MG PO BID Prescribed by: LATRELL COOK MD As needed Albuterol HFA (Proair HFA) 8.5 Gm Hfa.aer.ad 2 PUFFS INHALATION Q4H PRN PRN For Shortness of Breath (Reported) Nitroglycerin (Nitrolingual) 12 Gm [place] 0.4 MG SL prn PRN PRN For Chest Pain ( Reported) Followup Plan Disposition: Patient is being discharged home. Discharge Diet: Heart Healthy, Renal Diet Discharge Activity: No restrictions (Patient may return to his usual activities gradually as tolerated.) Follow-up Provider: Cassandra Miller MD Follow-up with PCP in: 1 week Provider: Jeevan Killian DO Follow-up in: 1 week (Patient is to follow up for hemodialysis as scheduled) Time spent Time spent on discharging this patient was greater than 35 minutes, over half of which was involved in counseling and coordination of care. Florentino Cook MD Jan 02, 2017 22:44
== END 2017-01-02 17:56 | disposition home or self-care (01) | DRG 291 ==
LOC: SED 12:53 → MPC 17:24
PROVIDERS: ADMIT Hospitalist; ATTEND Hospitalist
PROC: 4A033R1 Measurement of Arterial Saturation, Peripheral, Percutaneous Approach (ICD-10-PCS; principal; 2016-12-21)
PROC: 30233N1 Transfusion of Nonautologous Red Blood Cells into Peripheral Vein, Percutaneous Approach (ICD-10-PCS; 2016-12-24)
PROC: 5A1D00Z (ICD-10-PCS; 2016-12-25)
PROC: 5A1D00Z (ICD-10-PCS; 2016-12-25)
PROC: 5A1D00Z (ICD-10-PCS; 2016-12-28)
PROC: 5A1D00Z (ICD-10-PCS; 2016-12-28)
PROC: 5A1D00Z (ICD-10-PCS; 2016-12-28)
PROC: 05HM33Z Insertion of Infusion Device into Right Internal Jugular Vein, Percutaneous Approach (ICD-10-PCS; 2017-01-01)
PROC: B513ZZA Fluoroscopy of Right Jugular Veins, Guidance (ICD-10-PCS; 2017-01-01)
DX: I13.2 Hypertensive heart and chronic kidney disease with heart failure and with stage 5 chronic kidney disease, or end stage renal disease (principal); N18.6 End stage renal disease; I50.23 Acute on chronic systolic (congestive) heart failure; N17.0 Acute kidney failure with tubular necrosis; J96.10 Chronic respiratory failure, unspecified whether with hypoxia or hypercapnia; E87.2 Acidosis; I24.8 Other forms of acute ischemic heart disease; N17.9 Acute kidney failure, unspecified; Z99.81 Dependence on supplemental oxygen; I25.10 Atherosclerotic heart disease of native coronary artery without angina pectoris; J44.9 Chronic obstructive pulmonary disease, unspecified; E11.9 Type 2 diabetes mellitus without complications; Z87.891 Personal history of nicotine dependence; Z95.1 Presence of aortocoronary bypass graft; Z95.810 Presence of automatic (implantable) cardiac defibrillator; D63.1 Anemia in chronic kidney disease

== ENCOUNTER 2017-01-18 14:30 | Inpatient (IN) | payer MEDICARE, OTHER ==
[2017-01-18] VITALS (8 sets, daily range): BP systolic 114–124; BP diastolic 46–62; PULSE 16–97; RESP 14–18; O2SAT 95–98
[~2017-01-18] VITALS: Ht 177.8 cm; Wt 69.7 kg
[~2017-01-18 14:30] MED LIST changes: -ASPI81TA3 PO; -CARV25TA PO; +CHOL10008 PO; -CHOL200047 PO; -FURO-128 PO; +INSLIS SUBQ; -INSU100C8 SUBQ; -INSU100V7 SUBQ; +LABE100T4 PO; -LISI10TA PO
--- NOTE | 2017-01-18 15:04 | ED.REPORT ---
HPI-Chest Pain 40 and Over Date of Service Jan 18, 2017 ED Provider: Benoit Romo MD This is an 81 year old male with a history of colon cancer, s/p colectomy, GI bleed, CABG, renal failure, CHF, COPD, CAD, DM, and HTN presenting to the emergency department complaining of substernal chest pain that began approximately 6 hours ago. Pt took three nitroglycerin three hours ago while at his dialysis appointment which provided complete pain relief. Discomfort is described as a "mild twinge," that lasts 5-10 minutes at a time. He had another episode in the ED that lasted one minute. Denies diaphoresis, SOB, nausea, fever , cough, vomiting, or change LOC. Pt describes similar presentations in the past and he normally takes three nitros which provide relief. He has an appointment with his housing quality standard inspector, Dr. Vaughn on 02/08/17. Nursing Notes Stated Complaint: TOLERATED CHEST PAIN Chief Complaint: Chest Pain Nursing Notes Reviewed: Yes ([email or web address], [employer] not reconciled) Allergies: Coded Allergies: Penicillins (Verified Allergy, Severe, Rash, 01/18/17) metformin (Verified Allergy, Severe, Rash, 01/18/17) tuberculin, purified protein deriva (Verified Allergy, Unknown, LEFT A WELT, 01/18/17) Scheduled Allopurinol (Allopurinol) 100 Mg Tablet 300 MG PO QAM Atorvastatin (Lipitor) 10 Mg Tab 10 MG PO HS Cholecalciferol (Vitamin D3) (Vitamin D3) 1,000 Unit Tab.chew 3,000 UNIT PO QAM Dextran 70/Hypromellose (Nature's Tears Eye Drops) 0.1 %-0.3 % Drops 1 DROP BOTH _EYES QAM Insulin Human Lispro (HumaLOG U100 Insulin Vial) 100 Unit/Ml Unit 0-4 UNIT SUBQ TIDWM Check blood sugars before meals and at bedtime. Use correction factor only before meals. Blood Sugar Lispro Correction: <151, 0 units; 151-175, 1 unit; 176-200, 2 units; 201-225, 3 units; 226-250, 4 units; 251-275, 5 units; 276-300 , 6 units; 301-325, 7 units; 326-350, 8 units; 351-375, 9 units; 376-400, 10 units; >400, 12 units. Ipratropium/Albuterol Sulfate (Iprat-Albut 0.5-3(2.5) mg/3 mL Inhalant Soln) 3 Ml Ampul.neb 3 ML IH Q6 Labetalol (Labetalol) 100 Mg Tablet 100 MG PO BID Multivit with Calcium,Iron,Min (Therapeutic M) 1 Each Tablet 1 EACH PO DAILY Scheduled PRN Albuterol HFA (Proair HFA) 8.5 Gm Hfa.aer.ad 2 PUFFS INHALATION Q4H PRN PRN For Shortness of Breath Nitroglycerin (Nitrolingual) 12 Gm Elsa 0.4 MG SL prn PRN PRN For Chest Pain General Time Seen by MD: 15:02 Chief Complaint Chest pain Hx Obtained From: Patient Arrived By: Walk-in Sudden in Onset?: Yes Onset Occurred: 5 - 8 hours ago Symptom Duration: Intermittent Severity: Current: Mild Pertinent Negative: Pt denies other symptoms Recent Healthcare: No recent hospitalization, Recent doctor visit Similar Sx Previous: Yes Past Medical History Past Medical History Notes: Mid January 04, diagnosed with renal failure and started on dialysis Echocardiogram December 21, EF 35%, mild dilation left ventricle, flattened septum consistent with RVR overload, mild hypokinesis and akinesis of the majority of the inferior posterior hough, pacemaker leads, mild aortic valve sclerosis, mild aortic regurgitation, moderate to severe tricuspid regurgitation, increased pulmonary hypertension Past Medical History Gout History of colon cancer, s/p colectomy with subsequent hepatic metastasis with embolization and radiation implants at [facility]. History of upper GI bleed Renal Failure on dialysis (started January 11), thought secondary to ATN Reports: COPD, Congestive heart failure, Coronary artery disease, Diabetes mellitus, Hypertension Past Surgical History Colectomy Reports: CABG Reports: Back/neck surgery, Pacemaker insertion Smoking History Former Smoker Social History Alcohol Use: 1-3 per week Drug Use: Denies drug use Ambulatory Status Independent Review of Systems Constitutional: Denies: Chills, Fever Respiratory: Denies: Non-productive cough, Shortness of breath Cardiovascular: Reports: Chest pain GI: Denies: Abdominal pain, Nausea, Vomiting Musculoskeletal: Denies: Back pain Skin: Denies Diaphoresis Neurologic: Denies: Headache, Lightheaded Complete sys rev & neg: except as marked. Physical Exam Initial Vital Signs Vital Signs (First) Date Time Temp Pulse Resp B/P Pulse Ox O2 Delivery O2 Flow Rate FiO2 01/18/17 14:34 36.2 69 15 123/46 95 Nasal Cannula 2 Initial VS: Reviewed, Vital signs normal Head / Eyes: Atraumatic, Normocephalic, PERRL ENT: Mucous membranes moist, Conjunctiva normal, No scleral icterus Neck: Supple, Non-tender, Full range of motion Extremities: Vascular intact, Neuro intact, No swelling, No tenderness Skin: Warm, Dry, No cyanosis Neurologic: Alert, Oriented, Nonfocal Psychiatric: Mood/affect normal, Behavior normal, Normal thought content General/Constitutional: Awake, Alert Appearance / Presentation: Positive: Cachectic Respiratory / Chest: Breath sounds NL, Breath sounds = bilat, No respiratory distress, No rhonchi, No wheezing Dialysis catheter in R chest Cardiovascular: Regular rhythm, Heart sounds NL, No gallop, No murmurs, No rubs Lower Ext Edema: Positive: Bilateral 2+ (improved from baseline ), Pitting Abdomen: Soft, Non-tender, McBurney's non-tender, No guarding, No rebound, BS normoactive, No distention, No hernia, No palpable mass Rectum / Perineum: No hemorrhoids Guaiac: Dark brown stool, + heme Interpretation & Diagnostics Lab Results Interpretation Result Diagram: 01/18/17 1450 01/18/17 1450 Test 01/18/17 14:50 White Blood Count 11.9th/mm3 (3.8-10.1) Red Blood Count 2.50mil/mm3 (4.40-5.80) Hemoglobin 7.3g/dL (13.8-17.2) Hematocrit 23.9% (41.0-50.0) Mean Corpuscular Volume 95.6fL (81-100) Mean Corpuscular Hemoglobin 29.2pg (27.0-35.0) Mean Corpuscular Hemoglobin Concent 30.5% (32.0-37.0) Red Cell Distribution Width 21.4% (12.3-15.4) Platelet Count 158bil/L (150-400) Neutrophils (%) (Auto) 81.5% (40-74) Lymphocytes (%) (Auto) 11.0% (14-46) Monocytes (%) (Auto) 5.6% (4-12) Eosinophils (%) (Auto) 1.2% (0-5) Basophils (%) (Auto) 0.2% (0-3) Sodium Level 132mEq/L (134-144) Potassium Level 3.7mEq/L (3.5-5.2) Chloride Level 90mEq/L (97-108) Carbon Dioxide Level 25mmol/L (18-29) Blood Urea Nitrogen 14mg/dL (8-27) Creatinine 1.73mg/dL (0.76-1.27) Estimat Glomerular Filtration Rate 41mL/min (>59) Glucose Level 153mg/dL (60-99) Calcium Level 8.8mg/dL (8.5-10.1) Magnesium Level 1.4mg/dL (1.6-2.6) Total Bilirubin 1.5mg/dL (0.0-1.2) Aspartate Amino Transf (AST/SGOT) 27U/L (0-50) Alanine Aminotransferase (ALT/SGPT) 19U/L (0-44) Alkaline Phosphatase 413U/L (25-160) Troponin T 0.094ug/L (0.0-0.011) Total Protein 7.5g/dL (6.4-8.4) Albumin 2.9g/dL (3.4-5.0) Lab Results Interpretation: CBC-recurrent anemia-patient was previously this low and admission December 22, transfused now recurrently anemic CMP renal failure-patient is status post dialysis Troponin #1 elevated-more difficult to interpret in the setting of a chronic renal failure, also in setting of chest pain - patient's previous troponins more significantly elevated X-Ray Chest Interpretation Chest Xray Interpretation: IMPRESSION: 1. Persistent small right pleural effusion with right basilar compressive atelectasis or consolidation. 2. Mild pulmonary edema again noted. 3. Left midlung nodular opacity may represent confluence of vascular and bony structures but attention is recommended on followup. Dictated by: Wei Gabriel M.D. on 01/18/2017 at 15:54 Approved by: Wei Gabriel M.D. on 01/18/2017 at 15:56 Re-Eval/Medical Decision Med Decision/Clinical Course This is an 81-year-old male who presents from dialysis for for by nephrology for evaluation of chest discomfort. Patient reports increasing number as a waxing waning episodes of chest discomfort which is now taking nitroglycerin. The symptoms are [id number] in duration, nonexertional, no shift shortness of breath or diaphoresis-but are generally resolved with nitroglycerin. Today he took 3 nitroglycerin at dialysis, and was sent over. The patient reports a brief episode of discomfort that occurred in the department, but is resolved primary care drinking the room. He has no additional complaints. He denies dyspepsia, denies black or tarry stools. Exam he is frail, chronically ill-but not acute distress. He has mild pitting edema both ankles-but according to all reports this is much better than he was previously to the point that the patient states today the only took 1-1/2 L off because the edema was somewhat improved. Receive baby aspirin, and Nitropaste. The patient's EKGs suggests a ventricular paced rhythm Labs are notable for recurrent anemia-patient was transfused last month, he had his crit has dropped remarkedly. He is post dialysis. And will likely be the most hemoconcentrated, increasing concern. Additionally troponins elevated but more difficult to interpret in the setting of both chronic renal failure, and anemia. In fact the anemia may be the reason the patient's having increased bouts of chest discomfort. A guaiac was performed although was brown stool, it is markedly heme positive. A transfusion is planned. Admission is warranted. This point initial transfusion and GI consultation is warranted, as the patient' s chest discomfort may more likely be secondary to the anemia than a primary cardiac etiology. Patient reports last upper/lower endoscopy was at [facility] years ago (and reports none since partial colectomy for adenoCA). I have requested records. GI is being consulted and case has been discussed with Dr. Malone. Plan is to transfuse patient today and improve medical conditioning in hopes of improving stability for endoscopy tomorrow afternoon. Source of Hx: Old records Consultation #1: Referral / Consult Name: Neftali Barron MD Consulted With: Hospitalist Call Returned at: 16:52 [place] Tube Tester: Accepts admit Consultation #2: Referral / Consult Name: Dale Malone MD Call Returned at: 17:05 [place] Tube Tester: Agrees with eval, Agrees with plan Note: GI Counseled Regarding: Diagnosis, Lab results, Need for follow-up, Need for admission Discharge & Departure Primary Impression: GI bleed GI bleed type/associated pathology: unspecified gastrointestinal hemorrhage type Qualified Code: K92.2 - Gastrointestinal hemorrhage, unspecified Additional Impressions: Elevated troponin Chest pain Chest pain type: unspecified Qualified Code: R07.9 - Chest pain, unspecified Anemia Anemia type: unspecified type Qualified Code: D64.9 - Anemia, unspecified Chronic renal failure Chronic kidney disease stage: stage 5 Qualified Code: N18.5 - Chronic kidney disease, stage 5 Disposition: ADMITTED TO HOSPITAL (ERASED) Discharge Condition All VS Reviewed: Yes Condition: Stable Referrals: NOPCP (PCP) Scribe Attestation Portions of this note were transcribed by Lakesha Crawford. I, Dr. Romo personally performed the history, physical exam and medical decision-making; I reviewed and confirmed the accuracy of the information in the transcribed note. Signed by: mario Toro. 01/18/2017, 23:30. Benoit Romo MD Jan 18, 2017 15:03 LAKESHA CRAWFORD Jan 18, 2017 15:15
[2017-01-18] MEDS ORDERED: Nitroglycerin 2% 1 Gm Ointment TOPICAL SCH (15:20)
[2017-01-18 15:21] LABS: EOSINOPHILS % (AUTO) 1.2 % (0-5)
[2017-01-18 15:25] LABS: BASOPHILS % (AUTO) 0.2 % (0-3); MONOCYTES % (AUTO) 5.6 % (4-12); Mean Corpuscular Hemoglobin 29.2 pg (27.0-35.0); Mean Corpuscular Volume 95.6 fL (81-100); NEUTROPHILS % (AUTO) 81.5 % (40-74); Platelet Count 158 bil/L (150-400)
[2017-01-18 15:46] LABS: Magnesium 1.4 mg/dL (1.6-2.6)
[2017-01-18 15:49] LABS: TROPONIN T 0.094 ug/L (0.0-0.011)
--- NOTE | 2017-01-18 15:58 | DRSVH ---
PROCEDURE: X-RAY CHEST ONE VIEW, PORTABLE ([id number]) INDICATIONS: Chest pain TECHNIQUE: One view of the chest was acquired. COMPARISON: [facility], CR, XR CHEST 1VW (PORTABLE), 12/21/2016, 13:37. [facility], CR, XR CHEST 1VW (PORTABLE), 12/22/2016, 11:33. FINDINGS: Surgical changes and devices: Left chest wall AICD appear stable in position. Multiple postsurgical changes are again noted in the mediastinum. There is a right internal jugular central venous cathete r with the tip extending to the cavoatrial junction. Lungs and pleura: There is a smaller pleural effusion with right basilar compressive atelectasis or c onsolidation which appears similar to the prior study. Mild pulmonary edema is redemonstrated. Ther e is a small nodular opacity in the left midlung measuring approximately 1 cm which may represent con fluence of vascular and bony structures. Mediastinum: Mediastinal contours appear unchanged. Heart size is borderline enlarged. Bones and chest wall: No suspicious bony lesions. Overlying soft tissues appear unremarkable. IMPRESSION: 1. Persistent small right pleural effusion with right basilar compressive atelectasis or consolidati on. 2. Mild pulmonary edema again noted. 3. Left midlung nodular opacity may represent confluence of vascular and bony structures but attenti on is recommended on followup. Dictated by: Wei Gabriel M.D. on 01/18/2017 at 15:54 Approved by: Wei Gabriel M.D. on 01/18/2017 at 15:56
[2017-01-18] MEDS ORDERED: 0.9% Sodium Chloride 250 ML IV ONE (16:05)
[2017-01-18] MEDS ORDERED: INSLIS SUBQ (16:47)
[2017-01-18] MEDS ORDERED: MULT-140 PO (16:49)
[2017-01-18] MEDS ORDERED: DEXT15DR24 BOTH_EYES (16:49)
[2017-01-18] MEDS ORDERED: Polyethylene Glycol (PEG) 17 Gm Powder PO PRN (17:25)
[2017-01-18] MEDS ORDERED: Ondansetron 2 mg/mL 2 mL Inj IVPUSH PRN (17:25)
[2017-01-18] MEDS ORDERED: Alum-Mag Hydrox-Simeth 30 mL Suspension PO PRN (17:25)
--- NOTE | 2017-01-18 17:47 | PCM.HPMED ---
Subjective Date of Service Jan 18, 2017 Primary Provider: Admitting Physician: Neftali Barron MD Primary Care Physician: Nopcp Attending Physician: Neftali Barron MD Chief Complaint: Chest pain History of Present Illness: This is an 81 year old male with a history of colon cancer, s/p colectomy, GI bleed, CABG, ESRD, on dialysis three days per week, CHF, COPD, CAD, DM, and HTN presenting to the emergency department complaining of substernal chest pain that began approximately 6 hours ago during his dialysis. Patient took three nitroglycerin three hours ago while at his dialysis appointment which provided complete pain relief. Per ED report, patient had another episode in the ED that lasted one minute. Patient describes similar presentations in the past and he normally takes three nitros which provide relief. He has an appointment with his band straightener, Dr. Vaughn on 02/08/17. Patient reports no chest pain at the moment. He denies headache, diaphoresis, shortness of breath, nausea, fever, cough, vomiting. He states he noticed very dark stool for a few days before admission to the hospital. Denies hematemesis. Review of Systems: A comprehensive review of systems was conducted with the patient and found to be negative except as above in the History of Present Illness. Allergies Coded Allergies: Penicillins (Verified Allergy, Severe, Rash, 01/18/17) metformin (Verified Allergy, Severe, Rash, 01/18/17) tuberculin, purified protein deriva (Verified Allergy, Unknown, LEFT A WELT, 01/18/17) Home Medications Scheduled Allopurinol (Allopurinol) 100 Mg Tablet 300 MG PO QAM Atorvastatin (Lipitor) 10 Mg Tab 10 MG PO HS Cholecalciferol (Vitamin D3) (Vitamin D3) 1,000 Unit Tab.chew 3,000 UNIT PO QAM Dextran 70/Hypromellose (Nature's Tears Eye Drops) 0.1 %-0.3 % Drops 1 DROP BOTH _EYES QAM Insulin Human Lispro (HumaLOG U100 Insulin Vial) 100 Unit/Ml Unit 0-4 UNIT SUBQ TIDWM Check blood sugars before meals and at bedtime. Use correction factor only before meals. Blood Sugar Lispro Correction: <151, 0 units; 151-175, 1 unit; 176-200, 2 units; 201-225, 3 units; 226-250, 4 units; 251-275, 5 units; 276-300 , 6 units; 301-325, 7 units; 326-350, 8 units; 351-375, 9 units; 376-400, 10 units; >400, 12 units. Ipratropium/Albuterol Sulfate (Iprat-Albut 0.5-3(2.5) mg/3 mL Inhalant Soln) 3 Ml Ampul.neb 3 ML IH Q6 Labetalol (Labetalol) 100 Mg Tablet 100 MG PO BID Multivit with Calcium,Iron,Min (Therapeutic M) 1 Each Tablet 1 EACH PO DAILY Scheduled PRN Albuterol HFA (Proair HFA) 8.5 Gm Hfa.aer.ad 2 PUFFS INHALATION Q4H PRN PRN For Shortness of Breath Nitroglycerin (Nitrolingual) 12 Gm [place] 0.4 MG SL prn PRN PRN For Chest Pain PMH Gout History of colon cancer, s/p colectomy with subsequent hepatic metastasis with embolization and radiation implants at [facility]. History of upper GI bleed Renal Failure on dialysis (started January 11), thought secondary to ATN Reports: COPD, Congestive heart failure, Coronary artery disease, Diabetes mellitus, Hypertension Surgical History Colectomy Reports: CABG Reports: Back/neck surgery Pacemaker insertion Family History Noncontributory Social History Hx Alcohol Use: Yes (in the past, but not now) Hx Substance Use: No Hx Tobacco Use: Yes ( ) Smoking Status: Former Smoker Living Arrangement: with Family Exam Vital Signs Vital Sign - Last Date Time Temp Pulse Resp B/P Pulse Ox O2 Delivery O2 Flow Rate FiO2 01/18/17 16:59 36.7 68 14 124/50 97 Nasal Cannula 1 Exam General: Cachectic male, laying in bed, no apparent distress. Responds appropriately to questioning. AO3 HEENT: Normocephalic, atraumatic, PERRLA, EOMI, oral mucosa moist Neck: supple, nontender, no JVD appreciated, full range of motion Cardiovascular: Regular rhythm, no gallops/murmurs/rubs Pulmonary: Clear to auscultation bilaterally Abdominal: Soft to palpation, nondistended, non tender to palpation, negative rebound, normoactive bowel tones. Extremities: No cyanosis, clubbing. Pitting edema 2+ from ankles to knees. Neuro: Neurologically grossly intact, strength is equal bilaterally upper and lower extremities. Psych: Appropriate mood and affect Lab and Diagnostics Labs Hemoglobin 7.3, hematocrit 23.9, Creatinine 1.73, Troponin 0.094 Result Diagram: 01/18/17 1450 01/18/17 1450 X-Rays, CTs and MRIs PROCEDURE: X-RAY CHEST ONE VIEW, PORTABLE IMPRESSION: 1. Persistent small right pleural effusion with right basilar compressive atelectasis or consolidation. 2. Mild pulmonary edema again noted. 3. Left midlung nodular opacity may represent confluence of vascular and bony structures but attention is recommended on followup. Dictated by: Wei Gabriel M.D. on 01/18/2017 at 15:54 Approved by: Wei Gabriel M.D. on 01/18/2017 at 15:56 12-lead ECG EKG in ED suggests a ventricular paced rhythm Assessment & Plan This is an 81 year old male with a history of colon cancer, s/p colectomy, GI bleed, CABG, renal failure, CHF, COPD, CAD, DM, and HTN presenting to the emergency department from dialysis complaining of substernal chest pain. 1. Acute blood loss anemia, present on admission - most likely GI source as patient guaiac positive - hemoglobin and hematocrit of 7.3 g/dl and 23.9% respectively on admission - blood transfusion, 3 units PRBS tonight - consider gentle hydration after transfusion - Dr Malone, Gi consulted. The plan is to monitor Hb/Hct after transfusion. If labs improve, than the patient will be scheduled for upper and lower endoscopy as an outpatient. If not, will plan the procedure tomorrow. - protonix 40 IV BID - serial Hb/Hct q6h and following transfusion - orthostatic vital signs 2. Elevated troponin of uncertain significance, present on admission - difficult to interpret in the setting of a chronic renal failure - troponin 0.094 on admission - EKG suggests a ventricular paced rhythm - telemetry, monitor troponin - nitroglycerin PRN 3. End stage renal disease, present on admission - patient diagnosed with renal failure in December and started on dialysis ( creatinine of 6.15 on January 01, 2017) - patient finished dialysis today, next session is on Wednesday - will consult nephrology tomorrow 4. Hypertension, presumed stable - currently patient is hypotensive - hold labetalol for now 5. DM, type 2, presumed stable - glucose level 153 mg/dl on admission - patient on insulin Human Lispro at home, 0-4 units SUBQ TIDWM - low dose correctional insulin - continue to monitor 6. CAD, presumed stable - continue Atorvastatin 10 mg PO hs Pain Evaluation: Adequate Pain Control GI Prophylaxis: Proton Pump Inhibitor VTE Prophylaxis Indicated: Contraindicated (suspected GI bleed) VTE Prophylaxis: SCDs Resuscitation Status: CPR: Attempt Resuscitation Attending Statement The patient was seen and examined together with Dr. Her on 01/18/2017 and I agree with the history, exam and plan as outlined in the note above. . Michelle Her DO Jan 18, 2017 17:47 Neftali Barron MD Jan 22, 2017 16:55
--- NOTE | 2017-01-18 18:20 | NUR ---
Admit note Patient admitted to 2002 from [facility] ER via gurney. Patient a/o x 4, denies chest pain, nausea or sob. Nitropaste in place, denies headache. Patient amb in room steady gait. Right tunnel cath inplace. Tele V paced PVC's. Patient oriented to room, call light, tv phone and poc.
[2017-01-18] MEDS ORDERED: Glucose 40% Oral Gel 15 Gm Tube PO PRN (18:45)
[2017-01-18] MEDS ORDERED: Pantoprazole 4 mg/mL 10 mL Inj IVPUSH SCH (18:50)
[2017-01-18] MEDS ORDERED: Magnesium Sulf 2 Gm/50mL Water 2 GM in IV Premix 1 EACH IV ONE (19:15)
[2017-01-18] MEDS ORDERED: Artificial Tears 15 mL Ophthalmic Solution BOTH_EYES PRN (20:00)
[2017-01-18] MEDS: Insulin LISPRO 300 Unit/3 mL Inj SUBQ SCH (21:50)
[2017-01-19] VITALS (18 sets, daily range): BP systolic 126–158; BP diastolic 54–79; PULSE 59–89; RESP 14–22; O2SAT 92–98
--- NOTE | 2017-01-19 00:40 | NUR ---
Transfusion reaction Pre-transfusion vitals B/P 121/54 hr 65 temp 36.6 Spo2 98% on 2L O2 RR 16 15 mins into transfusion B/P 122/57 hr 64 temp 37.9 Spo2 99% on 2L O2 RR 16 Transfusion stopped due to increased temp and Resident notified with orders to give Tylenol 650mg, stop infusion, and implement a Transfusion Reaction for further evaluation. Blood sent back to lab for processing. Post Tylenol temp 36.9. Pt alert and oriented x 3 with no other reactions noted. "I really needed that blood." Care ongoing.
[2017-01-19 03:12] LABS: BASOPHILS % (AUTO) 0.5 % (0-3); EOSINOPHILS % (AUTO) 2.3 % (0-5); MONOCYTES % (AUTO) 7.6 % (4-12); Mean Corpuscular Hemoglobin 29.7 pg (27.0-35.0); Mean Corpuscular Volume 96.7 fL (81-100); NEUTROPHILS % (AUTO) 74.8 % (40-74); Platelet Count 135 bil/L (150-400)
[2017-01-19 03:31] LABS: Magnesium 1.8 mg/dL (1.6-2.6)
--- NOTE | 2017-01-19 06:25 | NUR ---
Transfusion restarted Pt restarted transfusion after clearance from lab, pathology, and resident (Tamiko Rodriguez). Pt temp 37.8 after 1 hour so infusion stopped until Resident assessed pt. Tylenol 650mg administered and infusion restart per resident. Temp now 36.7. Pt c/o of mild itching around ears, neck, and face. Resident notified-awaiting orders. care ongoing.
[2017-01-19] MEDS ORDERED: diphenhydrAMINE 25 mg Capsule PO ONE (06:40)
[2017-01-19] MEDS: Insulin LISPRO 300 Unit/3 mL Inj SUBQ SCH ×4 (08:00→22:00)
[2017-01-19] MEDS ORDERED: Propofol 10,000 mCg/mL 20 mL Inj ONE (09:15)
[2017-01-19] MEDS ORDERED: Ketamine 10 mg/mL 20 mL Inj ONE (09:15)
--- NOTE | 2017-01-19 09:36 | PCM.PNMED ---
Subjective Date of Service Jan 19, 2017 Subjective Patient was receiving his first unit of blood when he developed a transfusion reaction 15 minutes into transfusion. His temperature went up to 37.8 C and he started c/o itchiness. Transfusion was stopped. He received Tylenol and Benadryl and transfusion was restarted. He is on his second unit of blood at this moment. He denies any symptoms. Exam Vital Signs Vital Sign - Last Date Time Temp Pulse Resp B/P Pulse Ox O2 Delivery O2 Flow Rate FiO2 01/19/17 07:33 36.4 89 16 143/57 01/19/17 07:10 Supplement Oxygen 01/19/17 03:32 96 2.00 Intake and Output 01/18/17 01/18/17 01/19/17 Cumulative From/Thru 15:00 23:00 07:00 01/18/17 14:34 - 01/19/17 06:30 Intake Total 442 ml 442 ml Output Total 0 ml 0 ml Balance 442 ml 442 ml Intake Oral 400 ml 400 ml IV Total 42 ml 42 ml Output Urine Total 0 ml 0 ml Exam General: Pleasant male, laying in bed, no apparent distress, A&O3 HEENT: Normocephalic, atraumatic, oral mucosa moist Neck: supple, nontender Cardiovascular: Regular rhythm, no gallops/murmurs/rubs Pulmonary: Clear to auscultation bilaterally Abdominal: Soft to palpation, nondistended, non tender to palpation Extremities: No cyanosis, clubbing. Pitting edema 2+ from ankles to knees Lab and Diagnostics Result Diagram: 01/19/1722401/19/17224 X-Rays, CTs and MRIs PROCEDURE: X-RAY CHEST ONE VIEW, PORTABLE IMPRESSION: 1. Persistent small right pleural effusion with right basilar compressive atelectasis or consolidation. 2. Mild pulmonary edema again noted. 3. Left midlung nodular opacity may represent confluence of vascular and bony structures but attention is recommended on followup. Dictated by: Wei Gabriel M.D. on 01/18/2017 at 15:54 Approved by: Wei Gabriel M.D. on 01/18/2017 at 15:56 12-lead ECG EKG in ED suggests a ventricular paced rhythm Assessment & Plan This is an 81 year old male with a history of colon cancer, s/p colectomy, GI bleed, CABG, renal failure, CHF, COPD, CAD, DM, and HTN presenting to the emergency department from dialysis complaining of substernal chest pain. Hospital day 2. 1. Acute blood loss anemia, present on admission, active - most likely GI source as patient guaiac positive - hemoglobin and hematocrit of 7.3 g/dl and 23.9% respectively on admission. 6.3 g/dl/20.5 this morning - continue blood transfusion, 3 units PRBS total - consider gentle hydration after transfusion - Dr Malone, Gi consulted. The plan is to monitor Hb/Hct after transfusion. Upper endoscopy to be performed today. - protonix drip - serial Hb/Hct q6h and following transfusion - orthostatic vital signs 2. Microcytic normocytic anemia, chronicity unknown but most likely chronic, present on admission, active, hemodynamically stable - hemoglobin of 7.0-8.4 in December 2016 - most likely d/t ESRD and possible GI bleed - continue blood transfusion - continue to monitor serial Hb/Hct 3. Elevated troponin of uncertain significance, present on admission, active - difficult to interpret in the setting of a chronic renal failure - troponin 0.094 on admission, 0,085 today - EKG suggests a ventricular paced rhythm - continue telemetry - nitroglycerin PRN 4. End stage renal disease, present on admission, active - patient diagnosed with renal failure in December and started on dialysis ( creatinine of 6.15 on January 01, 2017) - patient finished dialysis today, next session is on Wednesday - nephrology consulted 5. Hypertension, presumed stable - BP 137-143/53-57 this morning - will continue to hold labetalol for now 6. DM, type 2, presumed stable - glucose level 153 mg/dl on admission, 149 today - patient on insulin Human Lispro at home, 0-4 units SUBQ TIDWM - low dose correctional insulin - continue to monitor 7. CAD, presumed stable - continue Atorvastatin 10 mg PO hs GI Prophylaxis: Proton Pump Inhibitor VTE Prophylaxis: SCDs VTE Mechanical Devices: Intermittant Pneumatic CD Resuscitation Status: CPR: Attempt Resuscitation Attending Statement The patient was seen and examined together with Dr. Her on 01/19/2017 and I agree with the history, exam and plan as outlined in the note above. . Michelle Her DO Jan 19, 2017 09:36 Neftali Barron MD Jan 22, 2017 16:55
--- NOTE | 2017-01-19 10:34 | PCM.CHPMED ---
Subjective Date of Service: Jan 19, 2017 Primary Physician: Admitting Physician: Neftali Barron MD Primary Care Physician: Miguel Attending Physician: Neftali Barron MD Admit Status: From the Emergency Department, [facility] Telemetry Chief Complaint: Chief Complaint: Weakness, chest pain History of Present Illness: Vahid Parham is a 81 year old male with history of metastatic colon cancer to the liver s/p colectomy, GI bleed, ESRD on dialysis MWF, Congestive heart failure, Coronary artery disease, COPD, and Diabetes who presents to [facility] emergency department complaining of generalized weakness and chest pain onset yesterday. The patient states that he has been feeling very weak for the last few days, but the substernal chest pain only began a few hour prior to arrival during his dialysis. Patient took three nitroglycerin that provided complete pain relief. Patient denies headache, diaphoresis, shortness of breath , nausea, fever, cough, vomiting, abdominal pain, or bloody/tarry stool. He reports a normal BM that was dark brown 2 days ago. Of note, patient has had several episodes of symptomatic anemia that required blood transfusion in the past. He reports one after the CABG, one after a colonoscopy and 2 other sudden onset episodes. He has had both upper and lower endoscopy in the past for the anemia, but no source of bleeding was ever identified. He was diagnosed with colon cancer s/p colectomy 2 years ago. He underwent radiation, and recently found out that it has metastasized to the liver. Patient had a recent hospitalization from 12/21-01/02/17 when he found out that he had ESRD required dialysis. On admission yesterday, patient was noted to have a drop in hemoglobin from 9.9 at discharge 01/02/17 to 7.3 on admission yesterday. A guaiac was performed in the ED although it was brown stool and was markedly heme positive. His hemoglobin dropped further to 6.3 this morning. He is currently on his 2nd unit of blood for a total of 3 units transfusion. GI team was consulted for possible GI bleed as the source of his acute blood loss anemia. Review of Systems: Constitutional: Reports: Malaise, Weakness, Denies: Chills, Fever Eyes: Denies: Blurred Vision, Double Vision, Redness, Vision Changes ENT: Reports: Membranes Dry, Denies: Dysphagia, Hoarseness, Throat Pain Neck: Denies: Pain Cardiovascular: Reports: SOB on Exertion, Denies: Chest Pain, Irregular Heart Rate, Palpitations, Rapid Heart Rate Respiratory: Reports: SOB with Exertion, Shortness of Breath, Denies: Cough, Sputum, Wheezing Gastrointestinal: Denies: Abdominal Pain, Black tarry stools, Blood in stool ( red), Change in Appetite, Constipation, Heartburn, Nausea Genitourinary: Denies: Dysuria, Hematuria, No burning or pain with urination Neurological: Denies: Change in Speech, Confusion, Dizziness, Localized Weakness, Somnolence Hematologic: Denies: Abnormal Bleeding, Bruising Lymphatic: Denies: Adenopathy, Swollen Lymph Nodes in Neck PMH Past Medical History Gout History of colon cancer, s/p colectomy with subsequent hepatic metastasis with embolization and radiation implants at [facility]. History of upper GI bleed Renal Failure on dialysis (started January 11), thought secondary to ATN Reports: COPD, Congestive heart failure, Coronary artery disease, Diabetes mellitus, Hypertension Hx Diabetes: YesBedside Blood Glucose: 262 Surgical History Colectomy Reports: CABG, Back/neck surgery, Pacemaker insertion Home Medications Scheduled Allopurinol (Allopurinol) 100 Mg Tablet 300 MG PO QAM Atorvastatin (Lipitor) 10 Mg Tab 10 MG PO HS Cholecalciferol (Vitamin D3) (Vitamin D3) 1,000 Unit Tab.chew 3,000 UNIT PO QAM Dextran 70/Hypromellose (Nature's Tears Eye Drops) 0.1 %-0.3 % Drops 1 DROP BOTH _EYES QAM Insulin Human Lispro (HumaLOG U100 Insulin Vial) 100 Unit/Ml Unit 0-4 UNIT SUBQ TIDWM Check blood sugars before meals and at bedtime. Use correction factor only before meals. Blood Sugar Lispro Correction: <151, 0 units; 151-175, 1 unit; 176-200, 2 units; 201-225, 3 units; 226-250, 4 units; 251-275, 5 units; 276-300 , 6 units; 301-325, 7 units; 326-350, 8 units; 351-375, 9 units; 376-400, 10 units; >400, 12 units. Ipratropium/Albuterol Sulfate (Iprat-Albut 0.5-3(2.5) mg/3 mL Inhalant Soln) 3 Ml Ampul.neb 3 ML IH Q6 Labetalol (Labetalol) 100 Mg Tablet 100 MG PO BID Multivit with Calcium,Iron,Min (Therapeutic M) 1 Each Tablet 1 EACH PO DAILY Scheduled PRN Albuterol HFA (Proair HFA) 8.5 Gm Hfa.aer.ad 2 PUFFS INHALATION Q4H PRN PRN For Shortness of Breath Nitroglycerin (Nitrolingual) 12 Gm [place] 0.4 MG SL prn PRN PRN For Chest Pain Allergies: Coded Allergies: Penicillins (Verified Allergy, Severe, Rash, 01/18/17) metformin (Verified Allergy, Severe, Rash, 01/18/17) tuberculin, purified protein deriva (Verified Allergy, Unknown, LEFT A WELT, 01/18/17) Family History Family History No family of colon cancer Social History Hx Alcohol Use: Yes (h/o heavy drinking, quit 15 years ago)Hx Substance Use: NoHx Tobacco Use: Yes (used to smoke 1.5ppd, quit 20 years ago) Smoking Status: Former Smoker Living Arrangement: with Family Exam Vital Signs Vital Sign - Last Date Time Temp Pulse Resp B/P Pulse Ox O2 Delivery O2 Flow Rate FiO2 01/19/17 07:33 36.4 89 16 143/57 01/19/17 07:10 Supplement Oxygen 01/19/17 03:32 96 2.00 Intake and Output 01/18/17 01/18/17 01/19/17 Cumulative From/Thru 15:00 23:00 07:00 01/18/17 14:34 - 01/19/17 06:30 Intake Total 442 ml 442 ml Output Total 0 ml 0 ml Balance 442 ml 442 ml Intake Oral 400 ml 400 ml IV Total 42 ml 42 ml Output Urine Total 0 ml 0 ml General: Alert, Oriented X3, Cooperative, No Acute Distress, Other (pale, chronically ill appearance) Head: Normal Eyes: PERRLA, EOMI, Scleral Anicteric Mouth: Mucous Membranes Dry Neck: Supple, No Thyromegaly Chest & Lungs: Chest Wall Normal, Clear to auscultation & percussion, Other ( dialysis port in place on the right chest wall with no sign of infection) Cardiovascular: Exam Unremarkable, Regular Rate/Rhythm, Normal S1, Normal S2, No Murmurs/Rubs/Gallops Abdomen: Non-tender, Non-distended, Benign, Normoactive bowel tones Extremities: Normal bilaterally, Warm, Edema (mild pitting edema in bilateral lower extremities) Neurological: Grossly Neurologically Intact, Normal Speech, Sensation Intact Lab and Diagnostics Result Diagram: 01/19/1722401/19/17224 X-Rays, CTs and MRIs PROCEDURE: X-RAY CHEST ONE VIEW, PORTABLE IMPRESSION: 1. Persistent small right pleural effusion with right basilar compressive atelectasis or consolidation. 2. Mild pulmonary edema again noted. 3. Left midlung nodular opacity may represent confluence of vascular and bony structures but attention is recommended on followup. Dictated by: Wei Gabriel M.D. on 01/18/2017 at 15:54 Approved by: Wei Gabriel M.D. 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 He was admitted for acute on chronic anemia, likely secondary to GI bleed given positive stool guaiac. 1. Acute on chronic normocytic anemia, present on admission, active. - Hemoglobin and hematocrit continue to drop in spite of the blood transfusion. - Chronic normocytic anemia is likely due to chronic disease (ESRD), but in light of his recurrent GI bleed and the drop in hemoglobin, will pursue an anesthesia-based diagnostic upper endoscopy this afternoon. - Depending on EGD findinds and how things play out clinically over the next 12- 24 hours, will consider colonoscopy tomorrow. - Continue transfusion for a total of 3 units PRBC. - Monitor serial H/H Q6H. - Change protonix IVP to protonix drip. - Remain NPO for today procedure. See endoscopy note for report. Other chronic problems that will be managed by the medical team. Colon cancer with metastases to the liver Gout ESRD on dialysis MWF Congestive heart failure Coronary artery disease COPD Diabetes Thank you for this consult. If you have any additional questions or concerns, please do not hesitate to contact us. Problems: Pain Evaluation: Adequate Pain Control GI Prophylaxis: Proton Pump Inhibitor VTE Prophylaxis Indicated: Contraindicated (suspected GI bleed) VTE Prophylaxis: SCDs VTE Mechanical Devices: Intermittant Pneumatic CD Resuscitation Status: CPR: Attempt Resuscitation Attending Statement Patient seen and examined. Agree with the assessment and plan as described by Dr Harris. Rajesh Harris DO Jan 19, 2017 10:34 Dale Malone MD Jan 19, 2017 22:39
--- NOTE | 2017-01-19 12:54 | NUR ---
Case Management: Provided FRIDA with explanation - pt signed 01/19 at 12:25pm. He did not want a copy. Signed form placed in chart. Alex Martin RN
[2017-01-19] MEDS: Pantoprazole Inj 80 MG in 0.9% Sodium Chloride 80 ML IV SCH ×2 (13:55→23:28)
--- NOTE | 2017-01-19 14:22 | CONS ---
[address] [address] CONSULTATION REPORT PATIENT: EMBER PANDEY : 1935 MR#: [id number] ADMIT: 01/18/2017 JOB ID: [id number] DATE OF SERVICE: 01/19/2017 NEPHROLOGY CONSULTATION: REQUESTING PHYSICIANS: Dr. Barron. DATE OF SERVICE: REASON FOR CONSULTATION: Management of end-stage renal disease. CHIEF COMPLAINT: Chest pain. PRESENT ILLNESS: This is a very pleasant 81-year-old gentleman with significant past medical history of end-stage renal disease, started on hemodialysis in December 2016, type 2 diabetes, hypertension, COPD, coronary artery disease status post CABG, ischemic cardiomyopathy, status post AICD, metastatic colon cancer, status post right-sided colectomy who presented to the hospital with a complaint of chest pain. The patient reported that he experienced some mild chest pain while on hemodialysis yesterday. He later on took nitroglycerin for three doses. The pain was subsided afterwards. However, the patient remained having fatigue. He was recommended to go to the hospital for further investigation. At the moment the patient denied any ongoing chest pain, shortness of breath. No fever, no chills and no cough. Initial blood work showed a hemoglobin of 7.3, and later on dropped to 6.3. He received 1 unit of blood overnight. He reported history of melenic stool over the past couple of days. He has been evaluated by delivery motorcycle driver. He will have upper endoscopy performed likely today. The patient was deemed ESRD during last visit. The first hemodialysis was performed on December 25, 2016. He goes to dialysis unit and being dialyzed every Wednesday, Wednesday and Wednesday at [facility]. Yesterday 1.5 L of fluid was removed. His current potassium is 3.8, creatinine of 3.07. PAST MEDICAL HISTORY: 1. End-stage renal disease, started first hemodialysis on December 25, 2016. 2. Type 2 diabetes. 3. Hypertension. 4. COPD. 5. Ischemic cardiomyopathy. 6. Coronary artery disease status post CABG. 7. Status post AICD placement. 8. Metastatic colon cancer, status post right-sided colectomy. 9. Hepatic metastasis status post embolization and radiation at the [facility]. 10. Anemia of chronic kidney disease. 11. Gout. 12. Dyslipidemia. PAST SURGICAL HISTORY: 1. Status post AICD placement. 2. Status post CABG. 3. Status post cholecystectomy. 4. Status post back surgery. 5. Status post angioplasty of the right femoral profunda. 6. Status post right tunneled catheter placement. FAMILY HISTORY: 1. Positive for stroke and PR in the family. 2. No kidney disease in the family. SOCIAL HISTORY: The patient is a former smoker. ALLERGIES: PENICILLIN, METFORMIN, TUBERCULIN PROPHAGE, PROTEIN DERIVATIVE. REVIEW OF SYSTEMS: Fourteen point review of systems was performed. PHYSICAL EXAMINATION: Vitals: Temperature 36.4, pulse 64, respiratory rate 16, blood pressure 133/63. General appearance: Awake, alert, oriented x3. No acute distress. HEENT: Marked pallor, no icteric sclerae, dry mucous membranes, atraumatic. PERRLA. No JVD. No lymphadenopathy. No thyroid enlargement. Heart: Regular rhythm. Normal S1, S2. Soft systolic murmur noted. Defibrillator in place on the left upper chest which is dry, clean and intact. Right tunnel catheter in place on the right upper chest which is dry, clean and intact. Lungs: Decreased breath sounds at bases. No wheezing. No rhonchi. Abdomen: Soft, active bowel sounds. No hepatosplenomegaly. Extremities: 1+ edema on the lower extremity. No cyanosis. LABORATORIES: Sodium 133, potassium 3.8, chloride 94, bicarbonate 25, BUN 24, creatinine 3.07, hemoglobin 6.3, WBC 8.7, platelets 135. ASSESSMENT: 1. End-stage renal disease, on hemodialysis every Wednesday, Wednesday, and Wednesday. 2. Acute on chronic anemia secondary to gastrointestinal blood loss. 3. Metastatic colon cancer, status post right-sided colectomy, and radiation. 4. Heart failure, reduced ejection fraction. 5. Coronary artery disease status post coronary artery bypass graft. 6. Chronic obstructive pulmonary disease. 7. Gout. 8. Her graft Agreed with the primary team to give him another unit of packed RBC. I will recommend to transfuse slowly over 4 hours. The patient does not require an urgent dialysis today. We will arrange for dialysis tomorrow for 4 hours with ultrafiltration to 2-3 L as tolerated. Thank you for allowing me to participate in the care of your patient.
--- NOTE | 2017-01-19 15:27 | NUR ---
Social Work Note: Initial Assessment Data& Assessment: EMR reviewed. SW met with pt at bedside to discuss discharge planning, SW role explained. Vahid Parham is a 81 year old male admitted on 01/18/2017 for chest pain, anemia and GI bleed. Pt has Medicare and [employer] for life insurance coverage. Pt lives in [place] alone at this time. Pt lives at [facility] at this time. Pt is independent at baseline. Pt uses a walker for ambulation assistance. Pt wears 2L of oxygen at baseline through [facility]. Pt does not have HH or SNF hx for himself. Pt does not have LTC insurance. Pt is not service connected. Pt has been receiving dialysis three times a week, but is not on a consistent schedule yet. For this week, pt next dialysis appointment is for tomorrow (Wednesday01/20/2017). Pt has DPOA/Advance Directive paperwork completed at home, SW requested a copy for his chart when possible. Pt daughter to transport him home when medically ready. Pt denies any needs at this time. SW to continue to follow if any needs arise. Plan: Anticipated discharge home via POV when medically ready. Pt denies any needs at this time. SW to continue to follow if any needs arise. LOVE Vizcarra Addendum: 01/19/17 at 1532 by MELODY BEASLEY Amended: Links added.
--- NOTE | 2017-01-19 16:54 | NUR ---
PRBC's/Endo Patient a/o x 3, denies pain, nausea or sob. Npo since midnight. Had liq stool dark brown x 1. Urine sent. Patient oob indep in room steady gait. VSS, tele V paced. Patient down to Endoscopy at 1600. Addendum: 01/19/17 at 1719 by ERIK CARLSON RN Patient recieved 2 units PRBC's malick well.
[2017-01-19] MEDS ORDERED: Lactated Ringer's 1,000 ML IV SCH (17:53)
[2017-01-19] MEDS ORDERED: MetoCLOpramide 5 mg/mL 2 mL Inj IVPUSH PRN (17:55)
--- NOTE | 2017-01-19 18:03 | PCM.HPANE ---
Patient Data Surgeon Admitting Provider:Neftali Barron MD Attending Provider:Neftali Barron MD Primary Care Physician:Nopcp Other Provider: Reason for Visit Chest Pain, Anemia, Gi Bleed Ht/WT & BMI Height (Feet): 5 Height (Inches): 10.00 Weight (Kilograms): 69.300 Body Mass Index 21.00 Allergies Coded Allergies: Penicillins (Verified Allergy, Severe, Rash, 01/18/17) metformin (Verified Allergy, Severe, Rash, 01/18/17) tuberculin, purified protein deriva (Verified Allergy, Unknown, LEFT A WELT, 01/18/17) Past Anesthesia History Anesthesia History: Denies:: Abnormal Airway, Anesthesia Reactions, Difficult Intubation, Fam Anesthesia Reaction, Fam Malignant Hypertherm, Malignant Hyperthermia Diabetes History Hx Diabetes?: Yes Current Bedside Blood Glucose: 131 MRSA MRSA: No Medications Home Meds Incl Beta Carmelina: No Active Scripts Labetalol 100 Mg [id number] Mg PO BID #60 TABLET Prov:Florentino Cook MD 01/02/17 Ipratropium/Albuterol Sulfate (Iprat-Albut 0.5-3(2.5) mg/3 mL Inhalant Soln)3 Ml Ampul.neb3 Ml IH Q6 #30 NEB Ref 0 Prov:James Lee MD 03/31/16 Reported Medications Dextran 70/Hypromellose (Nature's Tears Eye Drops)0.1 %-0.3 % Drops1 Drop BOTH_ EYES QAM 01/18/17 Multivit with Calcium,Iron,Min (Therapeutic M)1 Each Tablet1 Each PO DAILY 01/18/17 Insulin Human Lispro (HumaLOG U100 Insulin Vial)100 Unit/Ml Unit0-4 Unit SUBQ TIDWM #1 VIAL Ref 0 Check blood sugars before meals and at bedtime. Use correction factor only before meals. Blood Sugar Lispro Correction: <151, 0 units; 151-175, 1 unit; 176-200, 2 units; 201-225, 3 units; 226-250, 4 units; 251-275, 5 units; 276-300, 6 units; 301-325, 7 units; 326-350, 8 units; 351-375, 9 units; 376-400, 10 units; >400, 12 units. 01/18/17 Cholecalciferol (Vitamin D3) (Vitamin D3)1,000 Unit Tab.chew3,000 Unit PO QAM 12/22/16 Atorvastatin (Lipitor)10 Mg Tab10 Mg PO HS Ref 0 12/22/16 Albuterol HFA (Proair HFA)8.5 Gm Hfa.aer.ad2 Puffs INHALATION Q4H PRN For Shortness of Breath #1 INHALER 03/30/16 Nitroglycerin (Nitrolingual)12 Gm Spray0.4 Mg SL prn PRN For Chest Pain 03/30/16 Allopurinol 100 Mg [id number] Mg PO QAM Ref 0 03/30/16 Discontinued Scripts Insulin Human Lispro (HumaLOG U100 Insulin Vial)100 Unit/Ml Unit Subq Wmhs #1 Vial Check blood sugars before meals and at bedtime. Use correction factor only before meals. Blood Sugar Lispro Correction: <151, 0 units; 151-175, 1 unit; 176-200, 2 units; 201-225, 3 units; 226-250, 4 units; 251-275, 5 units; 276-300, 6 units; 301-325, 7 units; 326-350, 8 units; 351-375, 9 units; 376-400, 10 units; >400, 12 units. Prov:Florentino Cook MD 01/02/17 History History of ENT Problems?: Yes HEENT History: Positive for:: Cataracts (both eyes surgery) Sinus Problem (sinus infections) Denies:: Abnormal Airway Difficult Intubation Dysphagia Hearing Problem Hx of Heart Problems?: Yes Cardiovascular History: Positive for:: AICD (ICD ok to use magnet per cardiology, no reprogramming) Cardiac Surgery (quadruple bypass surgery 1998,angioplasty, 1900,1999) Chest Pain (1987) Congestive Heart Failure Edema Hypertension Irregular Heartbeat (LBBB) Pacemaker (pacer/Difib) Denies:: Atrial Fibrillation Heart Murmur Thrombophlebitis Other Cardiac History: CHF,CAD, HTN Hx of Respiratory Problem?: Yes Respiratory History: Positive for:: COPD Chest Surgery Dyspnea Pneumonia Denies:: Asthma Cough Emphysema Hemoptysis Oxygen Administration Tuberculosis Other Resp Pertinent History: HX OF ARDS Hx Neurologic Problems?: Yes Neurological History: Positive for:: Dizziness Headaches Denies:: Alzheimer's Disease CVA Dementia Parkinson's Disease Seizures Hx of GI Problems?: Yes Gastrointestinal History: Positive for:: Cirrhosis Gall Bladder Disease (REMOVEDC) Gastrointestinal Bleeding Liver Disease Rectal Bleeding Denies:: Diverticulitis Gastroesphageal Reflux Heartburn (used too) Hepatitis Hiatal Hernia Other GI Pertinent History: ESRD, DM Hx of Problems?: No Male Hx: Denies:: Prostate Problems Scrotal Mass Testicular Surgery Skin History: Denies:: History Skin Disorders? Pressure Ulcers Hx Musculoskeletal Problems?: Yes Musculoskeletal History: Positive for:: Back Injury (back surg) Denies:: Joint Replacement Musculoskeletal Trauma Hx of Psycho/Social Problems?: Yes Psycho Social History: Positive for:: Anxiety (Hx PTSD) Hx Depression Denies:: Bipolar Disorder Suicide Attempt Hx Surgeries?: Yes (jose raul, colectomy, X4 bipass, AICD) Hx Any Other Health Problems?: Yes Other History: Positive for:: Cancer (colon) Hospitalization (several) Denies:: Endocrine Disease Thyroid Disease History Blood Transfusions: Positive for:: Accept Blood Products? Blood Transfusions Denies:: Blood Transfuse Reaction Hx Diabetes: YesBedside Blood Glucose: 131 Hx Alcohol Use: Yes (h/o heavy drinking, quit 15 years ago)Hx Substance Use: No Smoking Status: Former Smoker Have You Smoked inLast 12 mo: No Stop/Bang Treated for Sleep Apnea?: No Do You Have a CPAP Machine?: No S-Snoring: Do You Snore Loudly: No T-Tired: feel tired, fatigued: No O-Obsered: Observed not breath: No P-Blood Pressure: treated: Yes B- Body Mass Index > 35 kg/m2: No A- Age over 50: Yes N- Neck Large Circumference: No G- Gender Male: Yes SERGIO Total Score: 3 Risk Assessment Category Category 1A: Patient has history of documented sleep apnea, and HAS NOT received any narcotic, sedative or anesthesia administration during this stay. Category 1B: Patient has history of documented sleep apnea, and HAS received any narcotic , sedative or anesthesia administration during this stay Category 2: Patient has SUSPECTED Obstructive Sleep Apnea, and HAS received any narcotic , sedative or anesthesia administration during this stay. Category 3: Patient has SUSPECTED Obstructive Sleep Apnea and HAS NOT received narcotic, sedative or anesthesia administration during this stay. Category 4: Outpatient in Procedural Areas with known sleep apnea or who screen positive for High Risk via the STOP/BANG questionnaire. Exam Exam Vital Signs Vital Signs Date Time Temp Pulse Resp B/P Pulse Ox O2 Delivery O2 Flow Rate FiO2 4/4/17 16:53 36.2 83 20 126/54 98 Nasal Cannula 2.00 01/19/17 13:39 36.2 83 20 126/54 98 Nasal Cannula 2.00 01/19/17 10:44 60 01/19/17 10:30 36.4 64 16 133/63 General Appearance: Alert, Oriented X3, Cooperative, Moderate Distress HEENT/AIRWAY: MP 2, Neck Movement (from), Mouth Opening (3 FBMO) Lungs: Clear to Auscultation, Normal Air Movement Heart: Other (PACED) Meds/Labs/Diagnostics Admission Meds Current Medications Pantoprazole (Protonix Inj) 40 mg BIDAC IVPUSH Last administered on 01/18/17 21 :31; Start 01/18/17 at 18:50; Stop 01/19/17 at 09:02; Status DC Insulin Human Lispro Nutritional Dose to be given pr... [facility] SUBQ Last administered on 01/18/17 21:50; Start 01/18/17 at 22:00 Magnesium Sulfate/ Premix (Magnesium Sulf 2 Gm/50mL Water/ IV Premix) 50 ml @ 100 mls/hr ONCE ONCE IV Last administered on 01/18/17 20:02; Start 01/18/17 at 19:15; Stop 01/18/17 at 19:46; Status DC Atorvastatin Calcium (Lipitor) 10 mg HS PO Last administered on 01/18/17 21:31 ; Start 01/18/17 at 21:00 Acetaminophen (Tylenol) 650 mg ONCE ONCE PO Last administered on 01/18/17 23: 38; Start 01/18/17 at 23:20; Stop 01/18/17 at 23:22; Status DC Diphenhydramine HCl 25 mg 25 mg ONCE ONCE PO Last administered on 01/19/17 06: 50; Start 01/19/17 at 06:40; Stop 01/19/17 at 06:41; Status DC Pantoprazole/ Sodium Chloride (Protonix Inj/ Normal Saline) 100 ml @ 10 mls/hr Q10H IV Last administered on 01/19/17 13:55; Start 01/19/17 at 09:05 Bedside Blood Glucose: 131 Labs Test 01/18/17 23:01 01/19/17 02:01/19/17 14:38 Troponin T 0.085ug/L (0.0-0.011) White Blood Count 8.7th/mm3 (3.8-10.1) Red Blood Count 2.12mil/mm3 (4.40-5.80) Mean Corpuscular Volume 96.7fL (81-100) Mean Corpuscular Hemoglobin 29.7pg (27.0-35.0) Mean Corpuscular Hemoglobin Concent 30.7% (32.0-37.0) Red Cell Distribution Width 21.8% (12.3-15.4) Platelet Count 135bil/L (150-400) Neutrophils (%) (Auto) 74.8% (40-74) Lymphocytes (%) (Auto) 14.5% (14-46) Monocytes (%) (Auto) 7.6% (4-12) Eosinophils (%) (Auto) 2.3% (0-5) Basophils (%) (Auto) 0.5% (0-3) Sodium Level 133mEq/L (134-144) Potassium Level 3.8mEq/L (3.5-5.2) Chloride Level 94mEq/L (97-108) Carbon Dioxide Level 25mmol/L (18-29) Blood Urea Nitrogen 24mg/dL (8-27) Creatinine 3.07mg/dL (0.76-1.27) Estimat Glomerular Filtration Rate 21mL/min (>59) Glucose Level 149mg/dL (60-99) Calcium Level 8.4mg/dL (8.5-10.1) Magnesium Level 1.8mg/dL (1.6-2.6) Total Bilirubin 1.2mg/dL (0.0-1.2) Aspartate Amino Transf (AST/SGOT) 21U/L (0-50) Alanine Aminotransferase (ALT/SGPT) 14U/L (0-44) Alkaline Phosphatase 322U/L (25-160) Total Protein 6.4g/dL (6.4-8.4) Albumin 2.3g/dL (3.4-5.0) Hemoglobin 9.5g/dL (13.8-17.2) Hematocrit 30.3% (41.0-50.0) Plan Impression Patient chart reviewed, patient interviewed and anesthestic plan with risks, benefits, and alternatives discussed, and informed consent obtained. NPO Status: 0630 water ASA Physical Status: ASA4 Life Threatening (COPD, PACEMAKER) Anesthetic Plan: MAC Bene/Risks/Altern/Consents: Yes HP Complete Prior to Induction: Yes Bhavik Mcwilliams MD Jan 19, 2017 17:29
--- NOTE | 2017-01-19 18:04 | PCM.ANEP2 ---
Post Anesthesia Evaluation ASA/CMS Post Anesthesia VS in Patient's Normal Range?: Yes Resp Stable; Airway Patent?: Yes CV Function & Hydration Stable: Yes Mental Status Recovered?: Yes Pain control Satisfactory?: Yes N/V Control Satisfactory?: Yes Bhavik Mcwilliams MD Jan 19, 2017 18:04
--- NOTE | 2017-01-19 18:04 | PCM.ANEP1 ---
Post Anesthesia Phase 1 PACU Phase 1 Assessment Date of Service: Jan 19, 2017 Vital Signs Vital Signs Date Time Temp Pulse Resp B/P Pulse Ox O2 Delivery O2 Flow Rate FiO2 01/19/17 17:55 77 16 151/72 94 Nasal Cannula 4 01/19/17 16:53 36.2 83 20 126/54 98 Nasal Cannula 2.00 01/19/17 13:39 36.2 83 20 126/54 98 Nasal Cannula 2.00 01/19/17 10:44 60 01/19/17 10:30 36.4 64 16 133/63 Anesthetic Administered: MAC Level of Alertness: Awake, talking COATES's with Equal Strength: Yes Pain: No Nausea or Vomiting: No Lungs: Clear to Auscultation, Normal Air Movement Dermatome Level: Full Sensation Bhavik Mcwilliams MD Jan 19, 2017 18:04
[2017-01-19] MEDS ORDERED: PEG/Electrolytes 4,000 mL Solution PO ONE (18:05)
--- NOTE | 2017-01-19 19:03 | NUR ---
Post Endo Patient returned to the room at 1830 awake, a/o x 3, denies pain. Amb to bed with sba, steady gait. Resting at this time.
--- NOTE | 2017-01-19 20:37 | ENDO ---
[address] [address] ENDOSCOPY PROCEDURE PATIENT: EMBER PANDEY : 1935 MR#: [id number] ADMIT: 01/18/2017 JOB ID: [id number] DATE: 01/19/2017 PROCEDURE: Esophagogastroduodenoscopy with biopsy. INDICATIONS: This is an 81-year-old male with a history of metastatic colon cancer, chronic renal insufficiency, hemodialysis dependency, coronary disease who was admitted from dialysis yesterday after experiencing chest pain and worsened anemia. He checked into the emergency department in the afternoon and had a hemoglobin of 7.3. Back in December, hemoglobins were in the 8 range. Overnight, his hemoglobin this morning dropped to 6.3. He has thus far received 2 units of packed RBCs and, interestingly, it bumped up to 9.5 as of around 2:38 this afternoon. The patient has not had any melena or red blood per rectum. Upper endoscopy is pursued today to exclude any evolving active upper GI source. He was noted to be heme-positive on rectal exam in the emergency. EQUIPMENT: GIF H 180 J. SEDATION: Monitored anesthesia as provided by Dr. Bhavik Mcwilliams. COMPLICATIONS: None identified. PROCEDURE INFORMATION: After the risks and benefits were explained, written and verbal informed consent was obtained. The patient was brought into the endoscopy suite and placed into the left lateral decubitus position. Sedation was achieved as above, the scope introduced into the mouth through the bite block, and advanced to the second portion of the duodenum. The scope was slowly withdrawn to carefully examine the mucosa for any defects or lesions. Retroflexed views were accomplished in the stomach. The stomach was decompressed. The scope removed from the patient who tolerated the procedure well. FINDINGS: 1. Esophagus: No acute erosive changes. No strictures. No mass lesions. The GEJ was at 46 cm from the incisors. 2. Stomach: The patient had a diffuse nonspecific macronodular gastropathy seen throughout. I did not see any overt ulcers. No source of acute blood loss. The patient had a bile-stained gastric fluid remaining in the lumen, easily suctioned up with the endoscope. Interestingly, there was a large extragastric mass effect being exerted in the antrum which obscured the pyloric channel. It actually took some searching with the tip of the endoscope to find the pylorus which was not involved in any inflammatory or neoplastic effect. I was easily then able to pass through the pylorus and eventually down into the duodenum. This extragastric mass effect had some overlying scattered sporadic erosive features. I did not see any other mucosal pathology beyond the diffuse gastric macronodularity seen throughout. We therefore simply took a random gastric biopsy for exclusion of H. pylori or any other underlying histopathology. 3. Duodenum: Once we got through into the duodenal bulb, mucosa appeared normal from the bulb through to the second portion with no sign of any active or recent stigmata of bleeding. ENDOSCOPIC DIAGNOSES: 1. Large extragastric antral mass effect of uncertain etiology. 2. Diffuse moderate macronodular gastropathy. RECOMMENDATIONS: 1. Await histopathology. 2. Continue clear liquid diet today. 3. Update CEA level. 4. CT abdomen and pelvis with IV contrast tomorrow morning before his dialysis session. 5. I think it would additionally be reasonable to prep the patient for updated colonoscopy considering all of these clinical features. The patient can be on a clear liquid diet beyond his split prep up until 10:30 in the morning.
[2017-01-19] MEDS: Albuterol-Ipratropium 3 mL Inhalation Solution INHALATION SCH (22:45)
[2017-01-20] VITALS (11 sets, daily range): BP systolic 126–149; BP diastolic 58–76; PULSE 77–103; RESP 16–22; O2SAT 89–95
[2017-01-20 03:04] LABS: BASOPHILS % (AUTO) 0.2 % (0-3); EOSINOPHILS % (AUTO) 0.6 % (0-5); Mean Corpuscular Hemoglobin 30.3 pg (27.0-35.0); Mean Corpuscular Volume 94.9 fL (81-100); Platelet Count 174 bil/L (150-400)
--- NOTE | 2017-01-20 04:52 | NUR ---
Colyte/NPO Pt drank the first Colyte 2000ml with effective BM produced. "I feel a big difference already." BSC at bedside and pt easily transfers with SBA for safety. Pt to drink another 2000ml at 0600. NPO since midnight. Care ongoing.
[2017-01-20] MEDS ORDERED: PEG/Electrolytes 4,000 mL Solution PO ONE (06:00)
[2017-01-20] MEDS: Insulin LISPRO 300 Unit/3 mL Inj SUBQ SCH ×4 (08:00→22:00)
[2017-01-20] MEDS: Albuterol-Ipratropium 3 mL Inhalation Solution INHALATION SCH ×3 (10:00→20:26)
[2017-01-20] MEDS: Pantoprazole Inj 80 MG in 0.9% Sodium Chloride 80 ML IV SCH ×2 (11:09→23:02)
--- NOTE | 2017-01-20 12:11 | PCM.PNNEPH ---
Subjective Date of Service Jan 20, 2017 Subjective s/p 2 units of PRBC. Being NPO for colonoscopy today. (+) loose BM from bowel prep. Exam Vital Signs Vital Sign - Last Date Time Temp Pulse Resp B/P Pulse Ox O2 Delivery O2 Flow Rate FiO2 01/20/17 10:08 84 16 90 Nasal Cannula 3.50 01/20/17 08:06 36.8 142/75 01/20/17 02:40 96 Intake and Output 01/19/17 01/19/17 01/20/17 Cumulative From/Thru 15:00 23:00 07:00 01/18/17 14:34 - 01/20/17 05:32 Intake Total 810 ml 944 ml 2112 ml 4308 ml Output Total 60 ml 1500 ml 1560 ml Balance 810 ml 884 ml 612 ml 2748 ml Intake Oral 0 ml 2000 ml 2400 ml IV Total 115 ml 944 ml 102 ml 1203 ml Packed Cells 695 ml 695 ml Tube Irrigant 10 ml 10 ml Output Urine Total 60 ml 60 ml Urine/Stool Mix 1500 ml 1500 ml # Bowel Movements 1 2 3 Exam Awake, alert, oriented x3. No acute distress. HEENT: Marked pallor, no icteric sclerae, dry mucous membranes, atraumatic. PERRLA. No JVD. No lymphadenopathy. No thyroid enlargement. Heart: Regular rhythm. Normal S1, S2. Soft systolic murmur noted. Defibrillator in place on the left upper chest which is dry, clean and intact. Right tunnel catheter in place on the right upper chest which is dry, clean and intact. Lungs: Decreased breath sounds at bases. No wheezing. No rhonchi. Abdomen: Soft, active bowel sounds. No hepatosplenomegaly. Extremities: 1+ edema on the lower extremity. No cyanosis. Lab and Diagnostics Result Diagram: 01/20/17 0235 01/20/17 0235 X-Rays, CTs and MRIs PROCEDURE: X-RAY CHEST ONE VIEW, PORTABLE IMPRESSION: 1. Persistent small right pleural effusion with right basilar compressive atelectasis or consolidation. 2. Mild pulmonary edema again noted. 3. Left midlung nodular opacity may represent confluence of vascular and bony structures but attention is recommended on followup. Dictated by: Wei Gabriel M.D. on 01/18/2017 at 15:54 Approved by: Wei Gabriel M.D. on 01/18/2017 at 15:56 12-lead ECG EKG in ED suggests a ventricular paced rhythm Plan Impression ASSESSMENT: 1. End-stage renal disease, on hemodialysis every Wednesday, Wednesday, and Wednesday. 2. Acute on chronic anemia secondary to gastrointestinal blood loss s/p blood transfusion. 3. Metastatic colon cancer, status post right-sided colectomy, and radiation. 4. Heart failure, reduced ejection fraction. 5. Coronary artery disease status post coronary artery bypass graft. 6. Chronic obstructive pulmonary disease. 7. Gout. Plan: No objection to proceed with CT with IV contrast today. Will schedule for HD afterwards. Monitor H&H. Pending colonoscopy. Marisa Soler MD Jan 20, 2017 12:11
--- NOTE | 2017-01-20 13:10 | PCM.PNMED ---
Subjective Date of Service Jan 20, 2017 Subjective Hospital day #3 Yesterday, patient had total 2 units packed red blood cells, well tolerated, without further temperature elevations (one time elevation of 37.9C 15 minutes after first unit, resolved with Tylenol) that would suggest a transfusion reaction. All Blood Bank assays for incompatibility were negative. His hemoglobin/hematocrit liset to a reasonable level of 9.5/30.3. Yesterday he also underwent an upper EGD by Dr. Malone. No apparent ulcerations or bleeding sources were found. However, there was an " extragastric mass effect" pressing on the stomach, and his stomach had diffuse macronodular gastropathy. Biopsy results are pending. Dr. Malone started him on Colyte in preparation for a colonoscopy today. A CT of abdomen/pelvis was ordered. Patient's stools have been liquid and brown since starting the prep. Overnight, he was unable to sleep well as he had two bowel movements. Otherwise , he feels more energized than before. Denies fever, nausea, or chest pain. Currently undergoing dialysis in his hospital room. Exam Vital Signs Vital Sign - Last Date Time Temp Pulse Resp B/P Pulse Ox O2 Delivery O2 Flow Rate FiO2 01/20/17 10:08 84 16 90 Nasal Cannula 3.50 01/20/17 08:06 36.8 142/75 01/20/17 02:40 96 Intake and Output 01/19/17 01/19/17 01/20/17 Cumulative From/Thru 15:00 23:00 07:00 01/18/17 14:34 - 01/20/17 05:32 Intake Total 810 ml 944 ml 2112 ml 4308 ml Output Total 60 ml 1500 ml 1560 ml Balance 810 ml 884 ml 612 ml 2748 ml Intake Oral 0 ml 2000 ml 2400 ml IV Total 115 ml 944 ml 102 ml 1203 ml Packed Cells 695 ml 695 ml Tube Irrigant 10 ml 10 ml Output Urine Total 60 ml 60 ml Urine/Stool Mix 1500 ml 1500 ml # Bowel Movements 1 2 3 Exam General - alert and oriented, conversant, appears slightly anxious. Undergoing dialysis. Skin - slightly less pale than yesterday. No erythema around central line or IV site. CV - regular rate and rhythm, no murmurs. Respiratory - clear to auscultation bilaterally. Abdomen - soft, non-tender, non-distended. Extremities - no pitting edema lower extremities. Lab and Diagnostics Result Diagram: 01/20/17 0235 01/20/175 X-Rays, CTs and MRIs PROCEDURE: X-RAY CHEST ONE VIEW, PORTABLE IMPRESSION: 1. Persistent small right pleural effusion with right basilar compressive atelectasis or consolidation. 2. Mild pulmonary edema again noted. 3. Left midlung nodular opacity may represent confluence of vascular and bony structures but attention is recommended on followup. Dictated by: Wei Gabriel M.D. on 01/18/2017 at 15:54 Approved by: Wei Gabriel M.D. on 01/18/2017 at 15:56 CT abd/pelvis 01/20/2017: IMPRESSION: 1. [id number] bilateral pleural effusions with increased pulmonary vascularity. 2. Left hepatic focal and confluent mass lesions, increased in size and number compared to prior exam. Findings appear to be most suggestive of progressive metastatic disease. 3. Interval increase in size and number of abdominal and pelvic lymph nodes, concerning for interval metastatic disease progression. 12-lead ECG EKG in ED suggests a ventricular paced rhythm Additional Diagnostics Reaction pathology interpretation: "No immunohematological evidence of acute hemolytic transfusion reaction. Febrile responses due to transfusion are secondary to patient antibodies reacting with platelets and/or white blood cells in the donor blood. Infections, underlying disease processes, and drugs must be RULED OUT. If subsequent transfusions are necessary, use of a microaggregate filter may be helpful. Increase in temperature of 1.3C to 37.9C. No evidence of hemolytic transfusion reaction." Dr. Marietta Russ, Pathologist --- 01/20/17 1117 --- Colonoscopy 01/20/2017: Awaiting report. Assessment & Plan This is an 81 year old male with a history of colon cancer, status post right colectomy, GI bleed, coronary artery bypass graft, renal failure, chronic heart failure, chronic obstructive pulmonary disease, coronary artery disease, diabetes mellitus, and hypertension presenting to the emergency department from dialysis complaining of substernal chest pain. Hospital day 3. 1. Acute blood loss anemia, present on admission, active - most likely GI source as patient guaiac positive - hemoglobin and hematocrit of 7.3 g/dl and 23.9% respectively on admission. 9.0 g/dl / 28.2 this morning. - monitor hemoglobin/hematocrit. Transfuse packed RBCs if hemoglobin <7. - Dr Malone, GI consulted. Colonoscopy performed today. Awaiting report. - CT abdomen/pelvis showed hepatic lesions and enlarged abdominal and pelvic lymph nodes. Suggestive of metastatic disease. - Will communicate with his new PCP Dr. Edgar Woodson, to coordinate referral to [facility] oncology. Due to previous personal differences, he prefers to see an oncologist other than Dr. Hernandez. - protonix drip - serial hemoglobin/hematocrit q6h and following transfusion - orthostatic vital signs 2. Microcytic normocytic anemia, chronicity unknown but most likely chronic, present on admission, active, hemodynamically stable - hemoglobin of 7.0-8.4 in December 2016 - most likely due to end-stage renal disease and possible GI bleed - continue blood transfusion - continue to monitor serial hemoglobin/hematocrit - No sources of bleeding found on upper EGD. Will await colonoscopy results. 3. Elevated troponin of uncertain significance, present on admission, active - difficult to interpret in the setting of a chronic renal failure - troponin 0.094 on admission, 0,085 today - EKG suggests a ventricular paced rhythm - continue telemetry - nitroglycerin PRN 4. End stage renal disease, present on admission, active - patient diagnosed with renal failure in December and started on dialysis ( creatinine of 6.15 on January 01, 2017) - Today BUN 31, creatinine 4.3. - Undergoing dialysis today in hospital. Dialysis done through central line, scheduled with vascular surgery for arterio-venous anastomosis in February. - nephrology consulted 5. Hypertension, presumed stable - BP 142/75 this morning - will continue to hold labetalol for now. 6. DM, type 2, presumed stable - glucose level 153 mg/dl on admission, 136 today - patient on insulin Human Lispro at home, 0-4 units subcutaneous, three times a day with meals. - low dose correctional insulin - continue to monitor 7. CAD, presumed stable - continue Atorvastatin 10 mg by mouth before bedtime. Pain Evaluation: Adequate Pain Control GI Prophylaxis: Proton Pump Inhibitor VTE Prophylaxis: SCDs VTE Mechanical Devices: Intermittant Pneumatic CD Resuscitation Status: CPR: Attempt Resuscitation Stroke Anti-thrombotic Day 2 Antithrombotic Contraindicate: Medical contraindication (Source of bleeding not yet found.) Time spent 40 minutes total. Attending Statement The patient was seen and examined together with Dr. Her on 01/20/2017 and I agree with the history, exam and plan as outlined in the note above. . HAYDER JC MD Jan 20, 2017 13:10 Michelle Her DO Jan 20, 2017 16:56 Neftali Barron MD Jan 22, 2017 16:58
--- NOTE | 2017-01-20 14:24 | DRSVH ---
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 5 mm thick coronal and sagittal reformats were performed. For radiation do se reduction, the following was used: automated exposure control, adjustment of mA and/or kV accordi ng to patient size. COMPARISON: [facility], CT, CHEST/ABD/PELVIS W/CON (PNL), 09/07/2013, 9:23. Outside [facility], CT, CT, LIVER (3-PHASE) WO/W CONTRAST, 03/11/2016, 10:52. [facility], CT, CT ANGIO EDISON ST PE, 03/30/2016, 19:59. FINDINGS: Image quality: Excellent. ABDOMEN: Lung bases: There is a partially visualized mild to moderate right and minimal left pleural effusion identified. There's overall appearance of increased pulmonary vascularity. Solid organs: The left hepatic lobe demonstrates postsurgical changes. In addition, there are multipl e isolated and confluent areas of heterogeneous low attenuation, the largest measuring 65 mm AP by 57 mm transverse. This area is markedly enlarged compared to prior exam, at which time it measured appr oximately 20 mm AP by 19 mm transverse. There is a small area of capsular nodularity along the supervisor shipping room ior inferior aspect measuring approximately 10 mm, which has been unchanged. The spleen is mildly enl arged without change. Gallbladder has been removed. Biliary system is non-dilated. Pancreas enhanc es normally. No adrenal nodules. Kidneys are normal in size and enhancement, without hydronephrosis . Peritoneum and bowel: Stomach is distended. Bowel loops demonstrate mild fluid-filled prominence, ov erall nonspecific. Anastomotic sutures are again noted. There is a nodular focus within the anterior right lower pelvis adjacent to the anastomotic site on series 2 image 49, which has been unchanged ov er multiple prior exams dating to 2012. Nodes and vessels: There are multiple lymph nodes within the periportal, peripancreatic and perigastr ic region, all demonstrating an overall interval increase in size compared to prior exam. There is a 13 mm lymph node on series 2 image 20 at the level of the SMA previously measuring 9 mm. There is a p eripancreatic lymph node on series 2 image 28 measuring 12 mm, compared to 9 mm on prior exam. There is a gilles-splenic lymph node identified on series 2 image 22 measuring 16 mm compared to 8 mm on prio r exam. Periportal and periaortic lymph nodes have increased in size and number the largest in the le ft periaortic region on series 2 image 29 measuring 11 mm compared to 7 mm on prior exam. Miscellaneous: No ventral hernias. PELVIS: Genitourinary: Bladder is incompletely distended. The prostate gland is enlarged. Miscellaneous: No inguinal hernias or adenopathy. Bones: Unchanged lucency at the level of L3, unchanged. No vertebral body compression fractures. IMPRESSION: 1. Yref-mx-pgpbqqlt bilateral pleural effusions with increased pulmonary vascularity. 2. Left hepatic focal and confluent mass lesions, increased in size and number compared to prior exam . Findings appear to be most suggestive of progressive metastatic disease. 3. Interval increase in size and number of abdominal and pelvic lymph nodes, concerning for interval metastatic disease progression. Dictated by: Angeles Armando M.D. on 01/20/2017 at 14:09 Approved by: Angeles Armando M.D. on 01/20/2017 at 14:23
--- NOTE | 2017-01-20 16:00 | NUR ---
Dialysis note 4 hr HD. 500ml net UF removed. No Heparin. NS flushes Q 1 hr. See DTR for complete vitals data. QB 500 thru R tunn catheter. Pt slept thru most of tx comfortably with no further stooling (has been bowel prepping before HD). Catheter dwelled with 1000/1 U heparin and secured.
--- NOTE | 2017-01-20 18:40 | NUR ---
Prep/CT scan/Dialysis Patient a/o x 4, COATES up indep in room to bsc. Patient npo since 1100 after golytely prep done. Patient having clear yellow liq stool. CT scan done this a.m. and patient had dialysis at bedside this afternoon, malick well. VSS, tele V paced. Patient remains npo for colonoscopy this evening.
[2017-01-20] MEDS ORDERED: fentaNYL-PF 50 mCg/mL 2 mL Inj ONE (19:08)
[2017-01-20] MEDS ORDERED: fentaNYL-PF 50 mCg/mL 2 mL Inj IVPUSH PRN (19:10)
[2017-01-20] MEDS ORDERED: 0.9% Sodium Chloride 1,000 ML IV ONE (20:27)
--- NOTE | 2017-01-20 23:06 | ENDO ---
[address] [address] ENDOSCOPY PROCEDURE PATIENT: EMBER PANDEY : 1935 MR#: [id number] ADMIT: 01/18/2017 JOB ID: [id number] DATE OF PROCEDURE: 01/20/2017 PROCEDURE: Colonoscopy with hot snare polypectomy. INDICATIONS: An 81-year-old male with a history of colon cancer. He is on dialysis with chronic anemia and had heme-positive stool. Upper endoscopy was abnormal but did not fully account for any acute bleeding. His updated CAT scan is quite concerning for progression of the metastatic process. CEA level is still pending. Repeat colonoscopy is pursued. EQUIPMENT: [employer]. SEDATION: None. BOWEL PREPARATION: Fair. PROCEDURE INFORMATION: After the risks and benefits were explained, written and verbal informed consent was obtained. The patient was brought into the endoscopy suite and placed into the left lateral decubitus position. Sedation was not applied initially as the patient's resting saturation was at 90%. As we progressed through the colonoscopy the patient tolerated this very well, and during a turn from the left lateral to the supine position he lost his peripheral IV access. From there, we were still able to navigate to the right hemicolectomy anastomosis without any significant patient discomfort. We applied a small amount of abdominal pressure to do so. The scope was then slowly withdrawn to carefully examine the mucosa for any defects or lesions. Multiple direct views were made through the dentate line. The colon was ultimately decompressed. The scope was removed from the patient who tolerated the procedure well. FINDINGS: Patent and normal right hemicolectomy anastomosis. No residual mass effect or bleeding focus. A small amount of friability noted at the anastomosis, but certainly no neoplastic effects. In the mid colon there was a very small, perhaps 5 mm, polyp removed with hot snare. We applied a magnet over the patient's pacemaker for safety during this brief use of electrocautery. Otherwise, no significant pathology was appreciated. The patient had a moderately twisty left colon. Moderately engorged internal hemorrhoids. ENDOSCOPIC DIAGNOSES: 1. Patent right hemicolectomy anastomosis. 2. Diminutive colon polyp. 3. Hemorrhoids. RECOMMENDATIONS: 1. Await histopathology. 2. Diet will be advanced. 3. Await CEA level. 4. Further input as per Oncology would likely be most useful.
[2017-01-21] VITALS (9 sets, daily range): BP systolic 107–125; BP diastolic 59–72; PULSE 81–100; RESP 16–22; O2SAT 85–99
[2017-01-21] MEDS: Albuterol-Ipratropium 3 mL Inhalation Solution INHALATION SCH ×2 (02:30→09:28)
--- NOTE | 2017-01-21 06:38 | NUR ---
NOC PT returned from colonoscopy around 2099 last heidi. He did not receive sedation with procedure. PT is currently on 4lNC which is an increase for him. PT is concerned that his increased oxygen demands are from him not receiving his Labetolol. This med is currently on hold. Pt will discuss with MD in am. HR is vpaced with PVC's, rate of 70-80's. Denies any pain. Oxygen memorial adviser in place so pt is able to ambulate around room. He declined to walk in hallways. Trace edema noted to BLE. 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 BG 85 at HS. V/S WNL. Will CTM. Protonix gtt infusing at 10ml/h.
[2017-01-21] MEDS: Insulin LISPRO 300 Unit/3 mL Inj SUBQ SCH ×2 (09:10→12:33)
[2017-01-21] MEDS: Pantoprazole Inj 80 MG in 0.9% Sodium Chloride 80 ML IV SCH ×2 (09:49→11:05)
[2017-01-21 10:30] LABS: BASOPHILS % (AUTO) 0.3 % (0-3)
[2017-01-21 10:32] LABS: EOSINOPHILS % (AUTO) 0.9 % (0-5); MONOCYTES % (AUTO) 7.1 % (4-12); Mean Corpuscular Hemoglobin 29.3 pg (27.0-35.0); Mean Corpuscular Volume 97.1 fL (81-100); NEUTROPHILS % (AUTO) 78.2 % (40-74); Platelet Count 138 bil/L (150-400)
--- NOTE | 2017-01-21 13:17 | PCM.DIMED ---
Michelle Her DO 01/21/17 1144: Discharge Instructions Date of Service Jan 21, 2017 Dates of Hospitalization Jan 18, 2017 at 16:59 Discharge Diagnosis Discharge Diagnosis 1. Acute blood loss anemia, present on admission. Resolved. 2. Microcytic normocytic anemia, chronicity unknown but most likely chronic, present on admission. Hemodynamically stable. 3. Elevated troponin of uncertain significance, present on admission. Stable. 4. End stage renal disease, present on admission. Active. 5. Hypertension, presumed stable. 6. DM, type 2, presumed stable. 7. CAD, presumed stable. Diet Heart Healthy Activity Home Health Phyical Therapy Call your provider Fever or Chills, Shortness of breath, Bleeding, Chest pain, Vomitting, Excessive diarrhea, Weakness (unilateral) Patient Instructions Please follow up with Dr. Woodson (your appointment will be arranged before your discharge). You will also need oncology follow up. Dr. Woodson will arrange a referral to [facility] Oncology. Follow-up Provider: Edgar Woodson MD Follow-up with PCP in: 1 week Additional Information Neftali Barron MD 01/22/17 1659: Discharge Instructions Attending's Statement The patient was seen and examined together with Dr. Her on 01/21/2017 and I agree with the history, exam and plan as outlined in the note above. . Michelle Her DO Jan 21, 2017 11:44 Neftali Barron MD Jan 22, 2017 16:59
--- NOTE | 2017-01-21 13:57 | PCM.DC.MED ---
Discharge Summary Date of Service Jan 21, 2017 Dates of Hospitalization Date of Hospital Admission Jan 18, 2017 at 16:59 Date of Discharge: Jan 21, 2017 Providers: Admitting Physician: Neftali Barron MD Primary Care Physician: Nopcp Attending Physician: Neftali Barron MD Diagnosis at Time of Discharge Diagnosis at Time of Discharge 1. Acute blood loss anemia, present on admission. Resolved. 2. Microcytic normocytic anemia, chronicity unknown but most likely chronic, present on admission. Hemodynamically stable. 3. Elevated troponin of uncertain significance, present on admission. Stable. 4. End stage renal disease, present on admission. Active. 5. Hypertension, presumed stable. 6. DM, type 2, presumed stable. 7. CAD, presumed stable. Consultations Gastroenterology, Dr. Malone Procedures XRay, CTs & MRIs X-RAY CHEST IMPRESSION: 1. Persistent small right pleural effusion with right basilar compressive atelectasis or consolidation. 2. Mild pulmonary edema again noted. 3. Left midlung nodular opacity may represent confluence of vascular and bony structures but attention is recommended on followup. Dictated and approved by: Wie Gabriel M.D. on 01/18/2017 at 15:54 CT ABDOMEN AND PELVIS WITH CONTRAST IMPRESSION: 1. Ljve-xi-fbllvukd bilateral pleural effusions with increased pulmonary vascularity. 2. Left hepatic focal and confluent mass lesions, increased in size and number compared to prior exam. Findings appear to be most suggestive of progressive metastatic disease. 3. Interval increase in size and number of abdominal and pelvic lymph nodes, concerning for interval metastatic disease progression. Dictated and approved by: Angeles Armando M.D. on 01/20/2017 at 14:09 ECG 12 Lead EKG in ED suggests a ventricular paced rhythm Invasive Procedures PROCEDURE: Esophagogastroduodenoscopy with biopsy. ENDOSCOPIC DIAGNOSES: 1. Large extragastric antral mass effect of uncertain etiology. 2. Diffuse moderate macronodular gastropathy. RECOMMENDATIONS: 1. Await histopathology. 2. Continue clear liquid diet today. 3. Update CEA level. 4. CT abdomen and pelvis with IV contrast tomorrow morning before his dialysis session. 5. I think it would additionally be reasonable to prep the patient for updated colonoscopy considering all of these clinical features. The patient can be on a clear liquid diet beyond his split prep up until 10:30 in the morning. Dale Malone MD 01/19/17 8829 PROCEDURE: Colonoscopy with hot snare polypectomy. ENDOSCOPIC DIAGNOSES: 1. Patent right hemicolectomy anastomosis. 2. Diminutive colon polyp. 3. Hemorrhoids. RECOMMENDATIONS: 1. Await histopathology. 2. Diet will be advanced. 3. Await CEA level. 4. Further input as per Oncology would likely be most useful. Dale Malone MD 01/20/172027 Other Diagnostics Brief History Vahid Parham is a 81 year old male with history of metastatic colon cancer to the liver s/p colectomy, GI bleed, ESRD on dialysis MWF, Congestive heart failure, Coronary artery disease, COPD, and Diabetes who presents to [facility] emergency department complaining of generalized weakness and chest pain onset yesterday. The patient states that he has been feeling very weak for the last few days, but the substernal chest pain only began a few hour prior to arrival during his dialysis. Patient took three nitroglycerin that provided complete pain relief. Patient denies headache, diaphoresis, shortness of breath , nausea, fever, cough, vomiting, abdominal pain, or bloody/tarry stool. He reports a normal BM that was dark brown 2 days ago. Of note, patient has had several episodes of symptomatic anemia that required blood transfusion in the past. He reports one after the CABG, one after a colonoscopy and 2 other sudden onset episodes. He has had both upper and lower endoscopy in the past for the anemia, but no source of bleeding was ever identified. He was diagnosed with colon cancer s/p colectomy 2 years ago. He underwent radiation, and recently found out that it has metastasized to the liver. Patient had a recent hospitalization from 12/21-01/02/17 when he found out that he had ESRD required dialysis. On admission yesterday, patient was noted to have a drop in hemoglobin from 9.9 at discharge 01/02/17 to 7.3 on admission yesterday. A guaiac was performed in the ED although it was brown stool and was markedly heme positive. His hemoglobin dropped further to 6.3 this morning. He is currently on his 2nd unit of blood for a total of 3 units transfusion. GI team was consulted for possible GI bleed as the source of his acute blood loss anemia. Hospital Course Mr. Parham is an 81 year old male with a history of colon cancer, status post right colectomy, gastrointestinal bleed, coronary artery bypass graft, renal failure, chronic heart failure, chronic obstructive pulmonary disease, coronary artery disease, diabetes mellitus, and hypertension who presented to the Emergency Department from dialysis complaining of substernal chest pain. Patient was discharged home on hospital day 4 in a stable condition. 1. Acute blood loss anemia, present on admission. Stable. - Most likely GI source as patient guaiac positive. - Continued protonix drip and serial hemoglobin/hematocrit. - Status post two units of packed red blood cells transfusion. - Hemoglobin and hematocrit of 7.3 g/dl and 23.9% respectively on admission. Improved to 9.1 g/dl and 30.2 % upon discharge. - Dr. Malone, gastroenterology consulted. Upper endoscopy and colonoscopy performed during the hospital stay. No source of active bleeding was revealed. 2. Microcytic normocytic anemia, chronicity unknown but most likely chronic, present on admission. Hemodynamically stable. - Hemoglobin of 7.0-8.4 in December 2016. - Most likely due to end-stage renal disease and possible GI bleed. - Status post two units packed red blood cells transfusion. - No sources of bleeding found on upper endoscopy/colonoscopy. 3. Elevated troponin of uncertain significance, present on admission. Stable. - Difficult to interpret in the setting of a chronic renal failure. - Electrocardiogram suggested a ventricular paced rhythm. 4. End stage renal disease, present on admission. Active. - Patient diagnosed with renal failure in December and started on dialysis ( creatinine of 6.15 on January 01, 2017). - Patient underwent dialysis in hospital on01/20/2017. Dialysis done through central line, scheduled with vascular surgery for arterio-venous anastomosis in February. - Nephrology followed. 5. Colon canver, status post colectomy, present on admission. Presumed stable. - CT abdomen/pelvis showed hepatic lesions and enlarged abdominal and pelvic lymph nodes. Suggestive of metastatic disease. - Communicated with patient's primary care provider, Dr. Edgar Woodson who will coordinated referral to [facility] oncology. Due to previous personal differences, patient prefers to see an oncologist other than Dr. Hernandez. 6. Hypertension, presumed stable. - Continued home blood pressure medications upon discharge. 7. DM, type 2, presumed stable. - Low dose correctional insulin. 8. CAD, presumed stable. - Continued atorvastatin 10 mg by mouth before bedtime. Exam Vital Signs (Last) Date Time Temp Pulse Resp B/P Pulse Ox O2 Delivery O2 Flow Rate FiO2 01/21/17 09:30 88 16 90 Nasal Cannula 2.00 01/21/17 09:03 36.3 124/72 01/20/17 02:40 96 Exam General: Cachectic male, laying in bed, no apparent distress. Responds appropriately to questioning. Alert and oriented x 3 HEENT: Normocephalic, atraumatic, oral mucosa moist Neck: Supple, nontender, no jugular venous distention. Full range of motion Cardiovascular: Regular rhythm, no gallops/murmurs/rubs Pulmonary: Clear to auscultation bilaterally Abdominal: Soft to palpation, nondistended, non tender to palpation, negative rebound, normoactive bowel tones Extremities: No cyanosis, clubbing. Pitting edema 1+ from ankles to knees Neuro: Neurologically grossly intact, strength is equal bilaterally upper and lower extremities Psych: Appropriate mood and affect Test 01/18/17 23:01 01/19/17 02:25 01/20/17 02:35 01/21/17 10:25 Troponin T 0.085ug/L (0.0-0.011) Magnesium Level 1.8mg/dL (1.6-2.6) Uric Acid 4.3mg/dL (2.6-7.2) Carcinoembryonic Antigen 122.7ng/mL (0.0-4.7) White Blood Count 11.0th/mm3 (3.8-10.1) Red Blood Count 3.11mil/mm3 (4.40-5.80) Hemoglobin 9.1g/dL (13.8-17.2) Hematocrit 30.2% (41.0-50.0) Mean Corpuscular Volume 97.1fL (81-100) Mean Corpuscular Hemoglobin 29.3pg (27.0-35.0) Mean Corpuscular Hemoglobin Concent 30.1% (32.0-37.0) Red Cell Distribution Width 20.7% (12.3-15.4) Platelet Count 138bil/L (150-400) Neutrophils (%) (Auto) 78.2% (40-74) Lymphocytes (%) (Auto) 13.2% (14-46) Monocytes (%) (Auto) 7.1% (4-12) Eosinophils (%) (Auto) 0.9% (0-5) Basophils (%) (Auto) 0.3% (0-3) Sodium Level 136mEq/L (134-144) Potassium Level 4.0mEq/L (3.5-5.2) Chloride Level 95mEq/L (97-108) Carbon Dioxide Level 25mmol/L (18-29) Blood Urea Nitrogen 19mg/dL (8-27) Creatinine 3.26mg/dL (0.76-1.27) Estimat Glomerular Filtration Rate 20mL/min (>59) Glucose Level 193mg/dL (60-99) Calcium Level 8.3mg/dL (8.5-10.1) Total Bilirubin 1.9mg/dL (0.0-1.2) Aspartate Amino Transf (AST/SGOT) 24U/L (0-50) Alanine Aminotransferase (ALT/SGPT) 12U/L (0-44) Alkaline Phosphatase 306U/L (25-160) Total Protein 6.5g/dL (6.4-8.4) Albumin 2.6g/dL (3.4-5.0) Discharge Medications Discharge Medications Allopurinol (Allopurinol) 100 Mg Tablet 300 MG PO QAM (Reported) Atorvastatin (Lipitor) 10 Mg Tab 10 MG PO HS (Reported) Cholecalciferol (Vitamin D3) (Vitamin D3) 1,000 Unit Tab.chew 3,000 UNIT PO QAM (Reported) Dextran 70/Hypromellose (Nature's Tears Eye Drops) 0.1 %-0.3 % Drops 1 DROP BOTH _EYES QAM (Reported) Insulin Human Lispro (HumaLOG U100 Insulin Vial) 100 Unit/Ml Unit 0-4 UNIT SUBQ TIDWM (Reported) Check blood sugars before meals and at bedtime. Use correction factor only before meals. Blood Sugar Lispro Correction: <151, 0 units; 151-175, 1 unit; 176-200, 2 units; 201-225, 3 units; 226-250, 4 units; 251-275, 5 units; 276-300 , 6 units; 301-325, 7 units; 326-350, 8 units; 351-375, 9 units; 376-400, 10 units; >400, 12 units. Ipratropium/Albuterol Sulfate (Iprat-Albut 0.5-3(2.5) mg/3 mL Inhalant Soln) 3 Ml Ampul.neb 3 ML IH Q6 Prescribed by: GUNNAR NICOLE Labetalol (Labetalol) 100 Mg Tablet 100 MG PO BID Prescribed by: LATRELL MORELAND MD Multivit with Calcium,Iron,Min (Therapeutic M) 1 Each Tablet 1 EACH PO DAILY ( Reported) As needed Albuterol HFA (Proair HFA) 8.5 Gm Hfa.aer.ad 2 PUFFS INHALATION Q4H PRN PRN For Shortness of Breath (Reported) Nitroglycerin (Nitrolingual) 12 Gm [place] 0.4 MG SL prn PRN PRN For Chest Pain ( Reported) Followup Plan Discharge Diet: Heart Healthy Discharge Activity: Home Health Phyical Therapy Patient Instructions Please follow up with Dr. Woodson (your appointment will be arranged before your discharge). You will also need oncology follow up. Dr. Woodson will arrange a referral to [facility] Oncology. Follow-up Provider: Edgar Woodson MD Follow-up with PCP in: 1 week Time spent Greater than 30 minutes was spent in preparation of discharge with greater than 50% of that time dedicated to patient counseling and coordination of care. . Attending Statement The patient was seen and examined together with Dr. Her on 01/21/2017 and I agree with the history, exam and plan as outlined in the note above. . Michelle Her DO Jan 21, 2017 13:26 Neftali Barron MD Jan 22, 2017 17:01
--- NOTE | 2017-01-21 14:50 | NUR ---
Social Work: Discharge D: Pt discussed in am rounds. Pt is medically stable for discharge. EMR reviewed; pt has been ambulating I during admission. Pt will need to follow up with outpatient oncologist. JACK FRAME TENDER met with pt at bedside to confirm discharge plan and assess for unmet needs. Pt lives in [place], alone. He expresses no concerns about discharge and states he has a walker at home which he uses for ambulation. His daughter, Sandhya Long ([phone]) will be providing transport. A: Pt who is I at baseline. P: Pt to discharge home via POV and no sw needs LOVE Mccarthy
--- NOTE | 2017-01-21 16:36 | NUR ---
Orthos/Discharge MD instructed RN to perform a set of orthos prior to discharge. Pt's orthos negative, Pt denied dizziness, MD updated, instructed to continue with discharging Pt. Pt discharged to home today at ~1530. Pt's IV access D/C'd and intact. Pt requested [facility] of [facility] visit for [facility]. Pt signed release form and supplied with copy. Pt given discharge educational materials on GI bleeds. Pt verbalized understanding of all discharge instructions. All belongings accompanied Pt at time of discharge.
--- NOTE | 2017-01-22 11:12 | PATH ---
SURGICAL PATHOLOGY Attending Physician:Ellen Hair CASE STATUS: Signed Out PATIENT NAME: EMBER PANDEY PID: [id number] : 1935 DATE COLLECTED:01/20/2017 00:00 SPECIMEN: Colon, Biopsy CLINICAL HISTORY: 1).COLON POLYP FINAL DIAGNOSIS: Colon Polyp: Tubular adenoma. ICD10 D12.6 GROSS DESCRIPTION: The specimen is received in one formalin filled container labeled with the patient's name, sublabeled "colon polyp" and consists of a 0.6 x 0.4 x 0.3 CM portion of tissue which is entirely submitted in one cassette. 01/21/2017 [facility] ICD-9 CODES: CPT CODES: 1: 15808 Electronically Signed Out Dale Wiley MD [facility] Pathology [facility] [address], [place] [address] Technical component performed at [facility], [facility] [address], [place], [address]
--- NOTE | 2017-01-26 16:32 | PATH ---
SURGICAL PATHOLOGY Attending Physician:Ellen Hair CASE STATUS: Signed Out * Amended * PATIENT NAME: EMBER PANDEY PID: [id number] : 1935 DATE COLLECTED:01/19/2017 00:00 SPECIMEN: Gastric, Biopsy CLINICAL HISTORY: GASTRITIS 1). GASTRIC BIOPSY FINAL DIAGNOSIS: Gastric Biopsy: Superficial portion of gastric fundic mucosa with no significant histomorphologic abnormality. Negative for H. pylori organisms by immunohistochemistry studies. ICD10 K29.7 This case was reviewed and interpreted by Dr. Kristin Wong. The final diagnosis is unchanged. This amendment is issued in order for the report to cross the interface and be available in the hospital electronic medical record. GROSS DESCRIPTION: The specimen is received in one formalin filled container labeled with the patient's name, sublabeled "gastric" and consists of a 0.3 x 0.2 x 0.2 CM portion of tissue which is entirely submitted in one cassette. 01/20/2017 [facility] MICRO DESCRIPTION: IMMUNOHISTOCHEMISTRY: Block 1A: H. pylori: Negative. ICD-9 CODES: CPT CODES: 1: 94068, 94968 AMENDMENT(S): Amended: 01/26/2017 by Hannah Macdonald Reason:Miscellaneous The final diagnosis is unchanged. This amendment is issued in order for the report to cross the interface and be available in the hospital electronic medical record. Previous Signout Date: 01/22/2017 Electronically Signed Out Marietta Dye MD [facility] Pathology [facility] [address] [facility], [place] [address] Technical component performed at [facility], [address] [place] [address] Ave[address], [place], [address]
--- NOTE | 2017-02-19 12:26 | NUR ---
Palliative care note Phone call from Shana RN at [facility]. She indicates that pt is seen by Dr. Coty Patiño. Provider feels that pt would benefit from Palliative care consult and Shana is calling to inquire about how to make this happen. Discuss with Shana that pt is seen by PCP Dr. Woodson and ask that she reach out to his office to have referral come from PCP associated with [facility]. She indicates that pt wants to continue dialysis and therefor is not eligible for hospice. Later, receive call from RN associated with Dr. Woodson's office who received message about wanting consult for pt. She has reviewed record and notes that per cardiology note-pt wanting to think further about involvement with PC. In previous hospitalization, pt not desirious of PC consult in the past. Her office staff did not take down phone number for Shana at [facility] so she is unable to call back for further questions. Later, receive fax from [facility]. RN from [facility] is Shana Coulter and can be reached at [phone]. Review of notes from last visit on 02/18/17. It appears that DR. Patiño discussed with Vahid that systemic treatment could not be offered. He also indicated that chemo might make him more ill than he is currently and he would be at risk for worsening ischemia and he therefor does not recommend systemic treatment and that focus should be on palliative care (hospice not indicated as pt continues to wish for dialysis treatment). Have left message for Cristina at [facility] to please call this worker at [phone] to discuss referral further. Betty Garcia [facility], [facility] Addendum: 02/19/17 at 1438 by JORGE A GARCIA PC note amendment Return call from pt PCP office and speak to Angelique. She indicates that pt returned call today and disavowed need for palliative care. He indicated that he was going to seek alternative therapies for himself. Betty ELLIS, CCM
== END 2017-01-21 15:35 | disposition home or self-care (01) | DRG 377 ==
LOC: SED 14:30 → OBSVTOIN 16:59 → PCC 16:59
PROVIDERS: ADMIT Internal Medicine; ATTEND Internal Medicine
PROC: 30233N1 Transfusion of Nonautologous Red Blood Cells into Peripheral Vein, Percutaneous Approach (ICD-10-PCS; 2017-01-18)
PROC: 30233N1 Transfusion of Nonautologous Red Blood Cells into Peripheral Vein, Percutaneous Approach (ICD-10-PCS; 2017-01-19)
PROC: 0DB68ZX Excision of Stomach, Via Natural or Artificial Opening Endoscopic, Diagnostic (ICD-10-PCS; principal; 2017-01-19 16:00)
PROC: 5A1D00Z (ICD-10-PCS; 2017-01-20)
PROC: 0DBE8ZX Excision of Large Intestine, Via Natural or Artificial Opening Endoscopic, Diagnostic (ICD-10-PCS; 2017-01-20 16:15)
DX: K92.2 Gastrointestinal hemorrhage, unspecified (principal); N18.6 End stage renal disease; I12.0 Hypertensive chronic kidney disease with stage 5 chronic kidney disease or end stage renal disease; I25.10 Atherosclerotic heart disease of native coronary artery without angina pectoris; E11.9 Type 2 diabetes mellitus without complications; M10.9 Gout, unspecified; I25.5 Ischemic cardiomyopathy; D63.1 Anemia in chronic kidney disease; E78.5 Hyperlipidemia, unspecified; D12.6 Benign neoplasm of colon, unspecified; K64.8 Other hemorrhoids; J44.9 Chronic obstructive pulmonary disease, unspecified; Z99.2 Dependence on renal dialysis; Z87.891 Personal history of nicotine dependence; Z88.0 Allergy status to penicillin; Z90.49 Acquired absence of other specified parts of digestive tract; Z79.4 Long term (current) use of insulin; Z85.038 Personal history of other malignant neoplasm of large intestine; Z95.810 Presence of automatic (implantable) cardiac defibrillator

== ENCOUNTER 2017-04-05 14:08 | Inpatient (IN) | payer MEDICARE, OTHER ==
[~2017-04-05] VITALS: Ht 177.8 cm; Wt 66.3 kg
[~2017-04-05 14:08] MED LIST changes: +DEXT15DR24 BOTH_EYES; +MULT-140 PO
[2017-04-05 14:12] VITALS: BP 102/47; PULSE 88; RESP 15; O2SAT 97
--- NOTE | 2017-04-05 14:37 | ED.REPORT ---
HPI-General Illness Date of Service Apr 05, 2017 ED Provider: Santo Navarro MD The patient is an 81 year old male with extensive medical history of metastatic colon cancer to the liver s/p colectomy, anemia, ESRD on dialysis MWF, Congestive heart failure, Coronary artery disease, COPD, and Diabetes who was sent to the ED from dialysis center for Hgb of 6.5. The patient had dialysis earlier today and was found to have profound SOB. However, patient states that his SOB is at baseline. He is on 3L of home O2. His daughter reports that the patient has been getting progressively weaker over unknown period of time. Patient has had several episodes of symptomatic anemia that required blood transfusion in the past. He has had both upper and lower endoscopy in the past for the anemia, but no source of bleeding has ever been identified. Patient admits to melena, but no gross bloody stool. He denies any other symptoms and reports to have SOB and dizziness are baseline. He wants the blood transfusion, but is very hesitant with further workups. However, patient is not interested in palliative care or hospice consult. Nursing Notes Stated Complaint: BLOOD TRANSFUSION Nursing Notes Reviewed: Yes Allergies: Coded Allergies: Penicillins (Verified Allergy, Severe, Rash, 04/05/17) metformin (Verified Allergy, Severe, Rash, 04/05/17) tuberculin, purified protein deriva (Verified Allergy, Unknown, LEFT A WELT, 04/05/17) Scheduled Allopurinol (Allopurinol) 100 Mg Tablet 300 MG PO QAM Aspirin (Aspirin) 81 Mg Tablet 81 MG PO DAILY Atorvastatin (Lipitor) 10 Mg Tab 10 MG PO HS Cholecalciferol (Vitamin D3) (Vitamin D3) 1,000 Unit Tab.chew 3,000 UNIT PO QAM Labetalol (Labetalol) 100 Mg Tablet 100 MG PO BID Multivitamin (Once Daily) 1 Each Tablet 1 EACH PO DAILY Scheduled PRN Albuterol HFA (Proair HFA) 8.5 Gm Hfa.aer.ad 2 PUFFS INHALATION Q4H PRN PRN For Shortness of Breath Insulin Aspart (NovoLOG U100 Insulin Vial) 100 Unit/Ml Mdv 0-8 UNITS SUBQ TIDWM PRN PRN sliding scale Nitroglycerin Wilton (Nitroglycerin Wilton) 4.9 Gm Wilton 1 SPRAY PO Q5MIN PRN PRN For Chest Pain General Time Seen by MD: 14:36 Chief Complaint Breathing problem, Dizziness, Weakness Hx Obtained From: Patient, Daughter Arrived By: Walk-in Sudden in Onset?: No Onset Occurred: Onset unknown Symptom Duration: Constant Radiation: : Does not radiate Severity: Current: No pain currently Associated with: Reports: Difficulty breathing, Dizziness, Shortness of breath , Weakness, Denies: Abdominal pain, Chest pain, Congestion, Cough, Fever, Headache, Numb extremities, Vomiting Pertinent Negative: Pt denies other symptoms Recent Healthcare: Recent doctor visit, Recent hospitalization Similar Sx Previous: Yes Past Medical History Past Medical History Notes: Mid January 04, diagnosed with renal failure and started on dialysis Echocardiogram December 21, EF 35%, mild dilation left ventricle, flattened septum consistent with RVR overload, mild hypokinesis and akinesis of the majority of the inferior posterior huogh, pacemaker leads, mild aortic valve sclerosis, mild aortic regurgitation, moderate to severe tricuspid regurgitation, increased pulmonary hypertension Past Medical History Gout History of colon cancer, s/p colectomy with subsequent hepatic metastasis with embolization and radiation implants at [facility]. History of upper GI bleed Renal Failure on dialysis (started January 11), thought secondary to ATN Reports: COPD, Congestive heart failure, Coronary artery disease, Diabetes mellitus, Hypertension Past Surgical History Colectomy Reports: CABG Reports: Back/neck surgery, Pacemaker insertion Smoking History Former Smoker Social History Alcohol Use: 1-3 per week Drug Use: Denies drug use Other Social History: Lives alone Ambulatory Status Wheelchair Review of Systems Full Review of Systems Constitutional: Reports: Fatigue, Malaise, Recent wt loss, Weakness - generalized, Denies: Chills, Fever Eyes: Denies: Discharge bilateral, Eye pain bilateral, Photophobia, Visual loss bilateral Respiratory: Reports: Dyspnea on exertion, Non-productive cough, Shortness of breath, Denies: Hemoptysis, Wheezing Cardiovascular: Denies: Chest pain, Edema, Palpitations, Syncope GI: Reports: Anorexia, Bloody/tarry stool, Melena, Denies: Abdominal pain, Diarrhea, Dysphagia, Hematemesis, Hematochezia, Mucousy stool, Nausea, Vomiting Neurologic: Reports: Dizziness, Lightheaded, Weakness, Denies: Abnormal movement, Bladder dysfunction, Bowel dysfunction, Change LOC , Confusion, Focal weakness, Headache Complete sys rev & neg: except as marked. Physical Exam Vital Signs Vital Signs Date Time Temp Pulse Resp B/P Pulse Ox O2 Delivery O2 Flow Rate FiO2 04/05/17 16:26 83 24 112/32 100 Nasal Cannula 04/05/17 14:12 36.8 88 15 102/47 97 Nasal Cannula 3 Initial VS: Reviewed, Vital signs normal General/Constitutional: No acute distress Distress / Hydration: Positive: Dehydration mild Appearance / Presentation: Positive: Debilitated, Frail, Icteric, Ill appearing /not toxic, Pale Jaundice and pale Respiratory / Chest: Atraumatic, No wheezing, No retractions Resp Distress / Stridor: Positive: Speaks words only Conversational dyspnea. Diffuse coarse rales. On NC at 3L. Cardiovascular: Heart rate NL, Regular rhythm, Heart sounds NL, No murmurs Abdomen: Atraumatic, Soft, Non-tender, No guarding, No rebound, BS normoactive , No distention Rectum / Perineum: No gross blood Rectal for Blood: Positive: Blood - occult heme + Loose, dark stool noted. Positive hemoccult. Neurologic: Oriented X3, No sensory deficits, Memory NL Interpretation & Diagnostics Lab Results Interpretation Result Diagram: 04/05/17 1530 04/05/17 1530 Test 04/05/17 15:30 White Blood Count 11.7th/mm3 (3.8-10.1) Red Blood Count 2.27mil/mm3 (4.40-5.80) Hemoglobin 7.0g/dL (13.8-17.2) Hematocrit 22.6% (41.0-50.0) Mean Corpuscular Volume 99.6fL (81-100) Mean Corpuscular Hemoglobin 30.8pg (27.0-35.0) Mean Corpuscular Hemoglobin Concent 31.0% (32.0-37.0) Red Cell Distribution Width 18.9% (12.3-15.4) Platelet Count 135bil/L (150-400) Neutrophils (%) (Auto) 85.6% (40-74) Lymphocytes (%) (Auto) 8.5% (14-46) Monocytes (%) (Auto) 4.4% (4-12) Eosinophils (%) (Auto) 1.0% (0-5) Basophils (%) (Auto) 0.2% (0-3) Sodium Level 134mEq/L (134-144) Potassium Level 4.6mEq/L (3.5-5.2) Chloride Level 93mEq/L (97-108) Carbon Dioxide Level 26mmol/L (18-29) Blood Urea Nitrogen 20mg/dL (8-27) Creatinine 2.40mg/dL (0.76-1.27) Estimat Glomerular Filtration Rate 28mL/min (>59) Glucose Level 224mg/dL (60-99) Calcium Level 8.4mg/dL (8.5-10.1) Total Bilirubin 1.6mg/dL (0.0-1.2) Aspartate Amino Transf (AST/SGOT) 29U/L (0-50) Alanine Aminotransferase (ALT/SGPT) 19U/L (0-44) Alkaline Phosphatase 456U/L (25-160) Troponin T 0.056ug/L (0.0-0.011) Pro-B-Type Natriuretic Peptide 22172xs/mL (0-486) Total Protein 7.1g/dL (6.4-8.4) Albumin 2.6g/dL (3.4-5.0) Hold Jones Top Tube Received (Received) Lab Results Interpretation: Low H/H and platelets. Mildly elevated WBC. Elevated Alkaline phosphatase Elevated Trop Elevated BNP X-Ray Chest Interpretation Chest Xray Interpretation: IMPRESSION: 1. Bibasilar airspace disease is similar to the prior study and may be chronic in nature. Superimposed pneumonia is difficult to exclude. 2. New rounded right basilar nodule may represent a neoplastic/metastatic lesion. A dedicated CT of the chest with intravenous contrast is recommended. 3. Right-sided pleural effusion and atelectasis is similar to the prior study. Dictated by: Toby Garcia M.D. on 04/05/2017 at 14:49 Approved by: Toby Garcia M.D. on 04/05/2017 at 14:54 Interpretation / Wet Read by: Interpret - Radiologist Re-Eval/Medical Decision Med Decision/Clinical Course 81 year old male with extensive medical history of metastatic colon cancer to the liver s/p colectomy, anemia, ESRD on dialysis MWF, CHF, CAD, COPD, and DM who was sent to the ED from dialysis center for increasing SOB and Hgb of 6.5. Patient denies any symptom and states that his SOB and dizziness have been baseline. However, his daughter notes that he has been progressively getting weaker and would like to have the patient admitted to the hospital. Dr. Killian thinks the patient might be benefit from a palliative consult, given his multiple terminal medical issues. The patient, on the other hand, does not want to see palliative care. He is fully aware that his issues are terminal and is not seeking definite treatment, but he would like to pursue workups if indicated. In the ED, patient Hgb increased to 7.0. There is significant rales on his lung exam, but this could be chronic. His hemoccult is positive. The rest of his exam are normal. CXR shows a new rounded right basilar nodule may represent a neoplastic/metastatic lesion. Given all these findings, patient needs blood transfusion. He was typed and crossed at the dialysis center and has a unit of PRBC on hold. The source of bleeding could be GI or could be chronic kidney disease. It is uncertain the extent of workups need to be done at this point. Therefore, we consulted Dr. Navarrete (GI), who agreed to see the patient for consideration of a capsule endoscopy to help look for the source of bleeding. 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 The admission plan was discussed with the patient, who was initially against it, but then agreed to have further workups. Patient is hemodynamically stable and will be admitted to the floor on observation. Time of Eval: 15:10 Re-Evaluation/Progress Note: Admission plan discussed with the patient and his daughter. Patient is resistant about the admission and only wants the blood transfusion. However, his daughter reports that he has been very weak and can no longer take care of himself. Patient requests not to have colonoscopy, but very vague about the invasive procedures. He refuses to see Palliative Care. Consultation #1: Referral / Consult Name: Hunter Navarrete MD Clutch Specialist: Will see patient Note: Dr. Navarrete recommended a capsule endoscopy. Will see the patient in the hospital. Consultation #2: Referral / Consult Name: Ish Her MD Consulted With: Hospitalist Clutch Specialist: Will see patient, Agrees with plan, Accepts admit Note: will admit the patient under observation. Counseled Regarding: Diagnosis, Lab results, Need for follow-up, Need for admission Discharge & Departure Shift Change Sign-Out Response to Therapy: Unchanged Primary Impression: Anemia Other causes of anemia: other cause, not classified Additional Impression: GI bleed GI bleed type/associated pathology: unspecified gastrointestinal hemorrhage type Qualified Code: K92.2 - Gastrointestinal hemorrhage, unspecified Disposition: ADMITTED TO HOSPITAL Discharge Condition All VS Reviewed: Yes Condition: Stable Referrals: NOPCP (PCP) EDSupervising Provider for APC: Santo Navarro MD Attending Statement Discussed patient with resident and evaluated patient independently and agree with plan as above. In brief 81-year-old male sent in by nephrology for admission for transfusion, dyspnea and palliative care consult. Patient has an 81-year-old male with history of colon cancer with metastasis who has been discharged by his oncologist at [facility] given there is nothing else to do for him. 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 He has chronic dyspnea but no acute changes. He does not want a hospice or palliative care consult or to be discharged on hospice or palliative care. However he does understand that he has extensive cancer with poor prognosis and extensive metastatic disease. Today's hemoglobin is 7. His troponins are mildly elevated. He has chronic shortness of breath. He does not want any further workup for his shortness of breath or any interventions. His only requesting blood transfusion. He is guaiac positive with grossly bloody stools. GI was consulted who recommended PPI and they will see the patient. Patient will be transfused one unit of PRBC. I recommended palliative care be consulted. He requested to be full code. He will be admitted to the hospitalist service observation. Santo Navarro MD Apr 05, 2017 14:36 Rajesh Harris DO Apr 05, 2017 15:55
[2017-04-05 15:53] LABS: BASOPHILS % (AUTO) 0.2 % (0-3); MONOCYTES % (AUTO) 4.4 % (4-12); Mean Corpuscular Hemoglobin 30.8 pg (27.0-35.0); Mean Corpuscular Volume 99.6 fL (81-100); NEUTROPHILS % (AUTO) 85.6 % (40-74); Platelet Count 135 bil/L (150-400)
--- NOTE | 2017-04-05 15:56 | DRSVH ---
PROCEDURE: X-RAY CHEST ONE VIEW, PORTABLE ([id number]) INDICATIONS: dyspnea TECHNIQUE: One view of the chest was acquired. COMPARISON: [facility], CT, CT ANGIO CHEST PE, 03/30/2016, 19:59. [facility] , CT, CHEST/ABD/PELVIS W/CON (PNL), 09/07/2013, 9:23. [facility], CT, CT ABD PELVIS W CO N, 01/20/2017, 11:20. [facility], CR, XR CHEST 1VW (PORTABLE), 01/18/2017, 15:33. [facility], CR, XR CHEST 1VW (PORTABLE), 12/22/2016, 11:33. FINDINGS: Surgical changes and devices: There is a dual-lumen right-sided central line catheter with the tip ov erlying the low superior vena cava to right atrial junction. A cardiac pacer/defibrillator apparatus is noted. Lungs and pleura: There is shunt of the lungs is similar to the prior study with air space disease wi thin the lung bases (right greater than left). A rounded nodule is seen at the right lung base. Thi s was not apparent on the prior study. Blunting of the right costophrenic angle is noted with partia l obscuration of the right diaphragm. No definite pneumothorax is appreciated. Mediastinum: Mediastinal contours appear normal. Heart size is normal. Aortic atherosclerosis is p resent. Bones and chest wall: No suspicious bony lesions. Overlying soft tissues appear unremarkable. IMPRESSION: 1. Bibasilar airspace disease is similar to the prior study and may be chronic in nature. Superimpo sed pneumonia is difficult to exclude. 2. New rounded right basilar nodule may represent a neoplastic/metastatic lesion. A dedicated CT of the chest with intravenous contrast is recommended. 3. Right-sided pleural effusion and atelectasis is similar to the prior study. Dictated by: Toby Garcia M.D. on 04/05/2017 at 14:49 Approved by: Toby Garcia M.D. on 04/05/2017 at 14:54
[2017-04-05 16:24] LABS: TROPONIN T 0.056 ug/L (0.0-0.011)
[2017-04-05 16:26] VITALS: BP 112/32; PULSE 83; RESP 24; O2SAT 100
[2017-04-05] MEDS ORDERED: Polyethylene Glycol (PEG) 17 Gm Powder PO PRN (16:50)
[2017-04-05] MEDS ORDERED: Ondansetron 2 mg/mL 2 mL Inj IVPUSH PRN (16:50)
[2017-04-05] MEDS ORDERED: Alum-Mag Hydrox-Simeth 30 mL Suspension PO PRN (16:50)
[2017-04-05] MEDS ORDERED: Dextrose 10% 250 ML IV PRN ×2 (16:55→18:20)
--- NOTE | 2017-04-05 17:49 | PCM.HPMED ---
Subjective Date of Service Apr 05, 2017 Primary Provider: Admitting Physician: Ish Her MD Primary Care Physician: Edgar Woodson MD Attending Physician: Ish Her MD Admit Status: From the Emergency Department, Admit to [place] Team Chief Complaint: 81-year-old man with advanced colon cancer, end-stage renal disease on hemodialysis, chronic pulmonary disease presents with GI blood loss anemia History of Present Illness: Patient has been in his usual state of health. He reports very dark brown stools but no obvious melena or red blood. He has no abdominal complaints. He has had persistent anemia recently in excess of expectation for ESRD. He presented today was found to have guaiac positive stool. He was recommended to have transfusion, but blood was not available in house and had to be ordered from [place]. He has no other new complaints. Review of Systems: 11 systems were reviewed. He denies abdominal pain, heartburn, hematochezia. He has no other bleeding disorder. Allergies Coded Allergies: Penicillins (Verified Allergy, Severe, Rash, 04/05/17) metformin (Verified Allergy, Severe, Rash, 04/05/17) tuberculin, purified protein deriva (Verified Allergy, Unknown, LEFT A WELT, 04/05/17) PMH # ESRD - attributed to episode of ATN following diuresis for peripheral edema; initiated hemodialysis 12/2016 # Colon cancer - stage IIIA right-sided colon cancer, KRAS mutation positive, post right hemicolectomy in December 2010, by Dr. Nomi Almodovar, liver metastasis , abdominal pelvic adenopathy, embolization therapy, radiation implants, treated at [facility] # GI blood loss anemia and prior endoscopies neg - last EGD 01/19/17 with biopsies ; last colonoscopy 01/20/17 noted hemorrhoids # Type II diabetes mellitus # Chronic lung disease - reportedly COPD, nonsmoker # Coronary artery disease - status post CABG # Chronic systolic congestive heart failure from most recent echo LVEF 35% diffuse hypokinesis, # Pulmonary hypertension with PASP 47 and RA pressure 15 mmHg AICD Family History No family history of bleeding diathesis. Social History Hx Alcohol Use: Yes (h/o heavy drinking, quit 15 years ago) Hx Substance Use: No Hx Tobacco Use: Yes (used to smoke 1.5ppd, quit 20 years ago) Smoking Status: Former Smoker Living Arrangement: Alone (images his own ADLs. Grandchildren help with driving.) Exam Vital Signs Vital Sign - Last Date Time Temp Pulse Resp B/P Pulse Ox O2 Delivery O2 Flow Rate FiO2 04/05/17 16:26 83 24 112/32 100 Nasal Cannula 04/05/17 14:12 36.8 3 Exam General: Thin elderly man alert and in no acute distress HEENT: sclerae anicteric, oral mucosa moist Neck: no JVD Chest: clear to auscultation Cardiac: S1S2, regular, no murmur Abdomen: BS normal, non-tender, hepatic margin 2 cm below, stool guaiac positive per ED exam Extremities: 1+ pedal edema Neuro: A&O, cranial nerves symmetric, motor strength 5/5, coordination normal Lab and Diagnostics Labs Hemoglobin chart review: 9.5 and 01/2017 with steady decline to proximally 7.0 in 03/2017 Result Diagram: 04/05/17 1530 04/05/17 1530 Assessment & Plan 81-year-old man with long-standing advanced colon cancer, recent initiation of hemodialysis and recurrent acute on chronic anemia despite negative endoscopy resents with recurrent asymptomatic GI bleeding. # Acute blood loss anemia, acute on chronic. Probably multifactorial with anemia of chronic renal disease and possible acute GI bleeding. Patient seems asymptomatic. - Transfuse 1 unit RBC, threshold greater than 7.0 GM per DL - GI consult - no plans for immediate endoscopy in light of recently negative studies - okay to eat tonight - Tagged RBC scan - If negative then discharged with plan for outpatient capsule endoscopy - If positive patient may require referral for enteroscopy # End stage renal disease, hemodialysis. Normally Wednesday. - Nephrology consult if the patient is not discharged on Wednesday - BMP in a.m. - Nephrology to consider EPO therapy status # Congestive heart failure, chronic, systolic. No acute symptoms. BMP is elevated. - Continue outpatient medications. # Type II diabetes mellitus - 4 times a day capillary blood glucose - Glucose control goals: Random less than 180, fasting less than 140, none less than 70 - Insulin as needed, divided 50-50 long-acting and nutritional/correctional # Goals of care. Patient has been informed that he is dying by other doctors. He has strong will to live in order to settle legal affairs and see his next birthday. He refuses hospice or palliative content consult dictation because he believes they just want to give him morphine. - Supportive interactions - Full code Chronic or Stable but Problems: # Chronic lung disease - monitor O2 sat, oxygen as needed # Metastatic colon cancer # Hypertension # Coronary artery disease Pain Evaluation: Adequate Pain Control VTE Prophylaxis: SCDs Resuscitation Status: CPR: Attempt Resuscitation Time spent 60 minutes Ish Her MD Apr 05, 2017 17:49
[2017-04-05] MEDS ORDERED: NOV100I SUBQ (17:52)
[2017-04-05] MEDS ORDERED: MULT-666 PO (17:52)
[2017-04-05] MEDS ORDERED: ASPI-973 PO (17:52)
[2017-04-05] MEDS ORDERED: NITR4.9S5 PO (17:52)
--- NOTE | 2017-04-05 18:00 | NUR ---
Pt report received from ED RN. Pt admitted to floor to receive blood transfusion. Pt to have Q6 hour blood draws to check H&H levels. Current H 7.0 & H 22.6. Pt is on Dialysis. Shunt in right arm. NO BP on Right. Pt transferred to bed sba from . [facility]. Pt on RA. Dr Arden heath to put in diet order, and blood transfusion order. Addendum: 04/05/17 at 1829 by JORGE ESCALONA RN Pt diet Renal Diet
[2017-04-05] MEDS ORDERED: 0.9% Sodium Chloride 250 ML IV PRN (18:15)
[2017-04-05] MEDS ORDERED: Glucose 40% Oral Gel 15 Gm Tube PO PRN (18:20)
[2017-04-05 18:30] VITALS: BP 142/63; PULSE 80; RESP 19; O2SAT 100
[2017-04-05 19:40] VITALS: BP 122/54; PULSE 76; RESP 14; O2SAT 98
[2017-04-05 19:57] VITALS: BP 127/57; PULSE 74; RESP 14
[2017-04-05] MEDS ORDERED: Insulin Human REGular 300 Unit/3 mL Inj SUBQ SCH (20:30)
[2017-04-05] MEDS: Insulin GLARgine 100 Unit/mL Syringe SUBQ SCH (21:00)
--- NOTE | 2017-04-05 21:00 | NUR ---
Refused Med Pt refused Lantus dosage tonight despite education. Physician notified and is aware.
[2017-04-05] MEDS: Insulin LISPRO 300 Unit/3 mL Inj SUBQ SCH (21:40)
[2017-04-05 22:43] VITALS: BP 119/61; PULSE 72; RESP 16; O2SAT 99
--- NOTE | 2017-04-05 22:59 | CONS ---
[address] [address] CONSULTATION REPORT PATIENT: EMBER PANDEY : 1935 MR#: [id number] ADMIT: 04/05/2017 JOB ID: [id number] DATE OF SERVICE: HISTORY OF PRESENT ILLNESS: It was a pleasure seeing the patient at [facility] for evaluation of anemia. This is an 81-year-old gentleman who was seen by Dr. Malone back in January 2017 for GI bleeding. He came in with anemia and GI bleeding. He has a history of stage IV metastatic colon cancer, mets to the liver, status post colectomy, end-stage renal disease on dialysis, congestive heart failure, coronary disease, COPD, diabetes, who had an EGD and colonoscopy by Dr. Malone. EGD showed large extragastric antral mass effect of uncertain etiology. Diffuse moderate macronodular gastroscopy. Biopsies are done and recommended CT of the abdomen and pelvis. CT scan that was done showed mild to moderate bilateral pleural effusion, left hepatic focal and confluence mass lesion increased in size and number compared to prior exam, and they said this is most likely progressive metastatic disease, and there is increased interval in size and number of abdominal and pelvic lymph nodes. A colonoscopy was nevertheless done the following day, which showed patent right hemicolectomy and anastomosis site, diminutive polyp and hemorrhoids. The biopsy results showed that he had a tubular adenoma and gastric fundus mucosa. He came in today to the emergency department because the dialysis unit noted hemoglobin of 6.5, and this was also associated with significant shortness of breath. He is on 3 L of oxygen at home, but the daughter reports him getting progressively weaker. According to the emergency department note, patient admits to melena, however, when I ask him he denied ever seeing black stools or blood in the stools. He does have shortness of breath as baseline but denies any chest pain. He denies any lightheadedness. He denies any skin rash, blood in the stools, black stools. No abdominal pain. No nausea, vomiting. Patient also informed me he is not interested in palliative care or hospice. He is not interested in getting any kind of morphine or pain medication, he actually wants a nontraditional way of taking care of his issues. His hemoglobin here is 7.0, platelets 135,000; white count of 11,700, and his troponin is mildly elevated at 0.056. Alk phos 456, total bili 1.6, creatinine 2.4, BUN 20. PAST MEDICAL HISTORY: Renal failure, on dialysis. CHF, EF of 35%. Metastatic colon cancer and it appears from the last CT scan the mass seemed to have gotten bigger with more severe lymphadenopathy. He has gout, history of upper GI bleed, renal failure, COPD, congestive heart failure, diabetes, hypertension. PAST SURGICAL HISTORY: Colectomy, CABG, back and neck surgery, pacemaker insertion. SOCIAL HISTORY: Former smoker. Uses maybe 1-3 drinks a week. Denies IV drug abuse. Lives alone. MEDICATIONS: At home include allopurinol, atorvastatin, vitamin D3, insulin, nebulizers, labetalol, multivitamin. PHYSICAL EXAMINATION: Patient is alert, appropriate and appears comfortable. Vitals: Temp 36.8, pulse 88, respirations 15, blood pressure 112/32. Head and neck: No icterus. Lungs: Diffuse decreased breath sounds with some expiratory wheezing. Cardiovascular: Regular rate and rhythm. Normal S1, S2 with systolic ejection murmur. Abdomen: Soft, nontender, nondistended with normoactive bowel sounds. Liver feels generous. This is probably consistent with the CT. Extremities: 2+ pitting edema of the ankles noted. No jaundice on the skin. Radial pulses bilaterally strong and intact. IMPRESSION: This is an 81-year-old gentleman with metastatic colon cancer to the liver and the last CT from January shows progression of the disease. He came in with anemia, but, he denies blood in the stools or black stools. I think his alkaline phosphatase is elevated because of the infiltrating cancer in the liver. Transaminases are normal. He is denying blood in the stools or black stools. However, guaiac I was told was positive. There is minimal evidence of active gastrointestinal bleeding. He is hemodynamically stable. I would transfuse him and resuscitate him. I would not proceed with esophagogastroduodenoscopy or colonoscopy unless he wants to have it done. He does not want colonoscopy under any circumstances, and EGD he wants to think about it. For now he does not want anything invasive. In the meantime, recommend: 1. Protonix 40 mg IV once a day. 2. Red tag scan. If lights up would send him for double balloon if it is in the small intestines.If red tag scan positve please reconsult. 3. Prognosis is poor. Suggest hospice palliative care. 4. If he wants to, he could proceed with capsule endoscopy as an outpatient with Dr. Malone. Because if capsule endoscopy is positive, he would need further endoscopy. 5. Please consider getting EPO level, but I will defer this to the primary service. ARNIE
[2017-04-05] MEDS: Sodium Chloride LOK Flush 10 mL Syringe IVFLUSH SCH (23:11)
--- NOTE | 2017-04-05 23:19 | NUR ---
Blood Transfusion 2 RN check performed, VSS, consent signed. Pt informed of possible side effects. Currently comfortable. At 15min VSS, rate changed from 75ml/hr to 125ml/hr. VSS at end of transfusion, no s/s of reaction. Pt saline locked.
[2017-04-06] VITALS (7 sets, daily range): BP systolic 107–163; BP diastolic 47–90; PULSE 58–79; RESP 14–17; O2SAT 95–100
[2017-04-06] MEDS: Insulin LISPRO 300 Unit/3 mL Inj SUBQ SCH ×4 (07:45→22:30)
[2017-04-06] MEDS: Sodium Chloride LOK Flush 10 mL Syringe IVFLUSH SCH ×2 (08:30→16:50)
--- NOTE | 2017-04-06 09:39 | NUR ---
Off floor to Nuc Med Patient off floor at approximately 0840 by wheelchair to nuc med. Vitals stable, denies pain and in no apparent distress. Chart with patient.
--- NOTE | 2017-04-06 12:20 | NUR ---
Social Work-initial assessment: Data:See initial assessment.Pt is a 81 y/o male who was admitted on 04/05/17 for anemia per H&P. Pt's insurance is [employer] and [employer] and PCP is Dr. Woodson.EMR reviewed. Pt's readmission score is 6-high risk. SW met with pt to discuss discharge planning, SW role explained. Pt resides at home where he remains independent with ADLs.. Pt does drive and does not use any DME. Pt has no HH or SNF history. Pt has no [employer] care insurance, but does have [employer] benefits. SW discussed DPOA/advanced directive, pt confirms that he has completed this, SW encouraged pt to bring in a copy to the hospital. Pt goes to dialysis M//. SW to follow for needs. Pt confirms that his daughter will provide transport home at discharge. SW will continue to follow. Assessment:pt who is independent at baseline. Plan:Pt to discharge home when medically stable via POV. SW to follow for needs. SW will continue to follow. LOVE Isbell Addendum: 04/06/17 at 1226 by JORGE A CROSS SS Amended: Links added.
--- NOTE | 2017-04-06 13:33 | NUR ---
Pt. in dialysis this afternoon. Will check back again tomorrow for OT evaluation. Jose Horvath, OTR/L
--- NOTE | 2017-04-06 13:33 | NUR ---
Case Management: Late entry for 04/06/17 @ 1025 - CAMARA and Part D info given and explained to pt. Pt currently undergoing dialysis. Pt declined copy of CAMARA; signed original placed on chart. LAURA Sierra RN
--- NOTE | 2017-04-06 14:09 | NUR ---
Dialysis note 3 hr PUF tx 2000ml net UF removed Pt received 1 U PRBC's during tx See DTR for complete vitals. Pt rested comfortably thru tx. Catheter dwelled with 1000/1 U Heparin post tx. Returned to room stable.
--- NOTE | 2017-04-06 14:24 | DRSVH ---
PROCEDURE: NM ACUTE GASTROINTESTINAL BLOOD LOSS (52051) RADIOPHARMACEUTICAL: 20.4 mCi Tc-99m in vitro labeled autologous red cells IV. INDICATIONS: GI BLEEDING, ENDOSCOPY NEGAIVE TECHNIQUE: Following intravenous administration of Tc-99m in vitro labeled autologous red cells, sequential ante rior abdominal images were obtained of the abdomen. COMPARISON: None. FINDINGS: There is no extravasation of labeled red cells in the abdomen or pelvis to suggest active gastrointestinal bleeding. IMPRESSION: No active bleeding identified in the current study. If clinical evidence of recurrent act jaki bleeding is identified, recommend returning the patient to the department for additional imaging. Dictated by: Edilia Mendoza MD, PhD on 04/06/2017 at 14:17 Approved by: Edilia Mendoza MD, PhD on 04/06/2017 at 14:21
--- NOTE | 2017-04-06 14:36 | NUR ---
Case Management: IMM given and explained to pt at bedside at 1415. Pt with no questions at this time. Signed original IMM placed on chart, copy given to pt. LAURA Sierra RN
--- NOTE | 2017-04-06 15:59 | NUR ---
Transfusion / late PO meds Patient's transfusion of first of two units of ordered blood was started during dialysis by driver examiner. Signed consent is in chart. Vitals stable during first unit. Second unit started on return to patient's room. Patient continues to deny discomfort or side effects, vitals remain stable and tolerating transfusion well. Morning PO meds given late after dialysis per driver examiner. Bed low and locked, call light in reach, care and frequent rounding ongoing.
--- NOTE | 2017-04-06 16:33 | PCM.PNMED ---
Subjective Date of Service Apr 06, 2017 Subjective Patient is feeling quite well during my evaluation this afternoon. He is in the process of receiving his second unit of blood. Still having some darkness of his stools but is much improved for a few days prior. Denies any pain at this time or really any pain previously. He has no acute complaints at this time energy level is much improved. Exam Vital Signs Vital Sign - Last Date Time Temp Pulse Resp B/P Pulse Ox O2 Delivery O2 Flow Rate FiO2 04/06/17 13:46 36.5 71 14 125/54 97 3.00 04/06/17 08:00 Supplement Oxygen Intake and Output 04/05/17 04/05/17 04/06/17 Cumulative From/Thru 15:00 23:00 07:00 04/05/17 14:12 - 04/06/17 06:17 Intake Total 400 ml 354 ml 754 ml Balance 400 ml 354 ml 754 ml IV Total 100 ml 354 ml 454 ml Packed Cells 300 ml 300 ml General: Alert, Oriented X3, Cooperative, No Acute Distress Eyes: Other (sclerae are pink) Mouth: Mucous Membr Moist/[place], Other (mucous membranes pink well perfused) Cardiovascular: Regular Rate/Rhythm Extremities: No cyanosis/clubbing/edma bilat Neurological: Grossly Neurologically Intact IVs and Medications Medications Reviewed: Medications were reviewed in detail Lab and Diagnostics Result Diagram: 04/06/17 0830 04/05/17 1530 Assessment & Plan 81-year-old man with long-standing advanced colon cancer, recent initiation of hemodialysis and recurrent acute on chronic anemia despite negative endoscopy resents with recurrent asymptomatic GI bleeding. # Acute blood loss anemia, acute on chronic. Probably multifactorial with anemia of chronic renal disease and possible acute GI bleeding. Patient seems asymptomatic. - Transfused 2 units RBC, threshold greater than 7.0 GM per DL, we will follow- up CBC following completion the second unit. - Supporting no active bleeding process. - GI consulted but no plans for immediate endoscopy in light of recently negative studies. . - Tagged RBC scan has been ordered imaging conducted this afternoon negative for any evidence of active bleed. Probably doing planned for tomorrow. - If negative then discharged with plan for outpatient capsule endoscopy # End stage renal disease, hemodialysis. Normally Wednesday. - Nephrology consulted, plan dialysis tomorrow on his normal schedule. - Nephrology to consider EPO therapy status # Congestive heart failure, chronic, systolic. No acute symptoms. BMP is elevated. - Continue outpatient medications. # Type II diabetes mellitus - 4 times a day capillary blood glucose - Glucose control goals: Random less than 180, fasting less than 140, none less than 70 - Insulin as needed, divided 50-50 long-acting and nutritional/correctional # Goals of care. Patient has been informed that he is dying by other doctors. He has strong will to live in order to settle legal affairs and see his next birthday. He refuses hospice or palliative content consult dictation because he believes they just want to give him morphine. - Supportive interactions - Full code Chronic or Stable but Problems: # Chronic lung disease - monitor O2 sat, oxygen as needed # Metastatic colon cancer # Hypertension # Coronary artery disease Pain Evaluation: Adequate Pain Control GI Prophylaxis: Not indicated VTE Prophylaxis: SCDs Resuscitation Status: CPR: Attempt Resuscitation Time spent 25 minutes Arthur Lucio DO Apr 06, 2017 16:33
--- NOTE | 2017-04-06 16:41 | CONS ---
[address] [address] CONSULTATION REPORT PATIENT: EMBER PANDEY : 1935 MR#: [id number] ADMIT: 04/05/2017 JOB ID: [id number] RENAL CONSULTATION: DATE OF SERVICE: 04/06/2017 HISTORY: This patient is a very unfortunate, 81-year-old, white male, who was admitted to [facility] for shortness of breath and anemia. He has a history of end-stage renal disease and is on dialysis. Renal consultation is being sought for further evaluation and management of his chronic kidney disease. He has a history of multiple medical problems, most significantly he has stage IV metastatic colon cancer with metastasis to his liver. He has undergone a colectomy and radiation therapy. However, he continues to require ongoing transfusions about every 2-3 weeks for chronic blood loss and continues to show manifestations of cachexia and malnutrition. He has been on dialysis for several months, and despite his dismal prognosis, the patient wishes to have everything done. I have had numerous discussions with him about this and he continues to refuse any evaluation or assistance from Palliative Care or hospice. Once again, yesterday he had a significantly low hemoglobin and hematocrit and was scheduled to get a unit of blood during dialysis treatment. Following his treatment, he began to complain of shortness of breath and was seen in the emergency department. Workup of this showed evidence of chronic COPD and some mild pleural effusions. He has also been seen by Gastroenterology who was also quite familiar with his case. He has had several upper and lower endoscopies and the most recent one showed a large gastric lesion which may represent a secondary malignancy versus an ulcer. He is having a Nuclear Medicine evaluation today for further evaluation. At time of admission, his hemoglobin was 7, despite getting a unit of blood. This morning he states he has had some shortness of breath but denies any headache, nausea, vomiting, constipation, wheezing, decreased appetite or chest pain. The patient is also quite stoic and is not always completely forthcoming with his physical complaints. PAST MEDICAL HISTORY: Significant for end-stage renal disease and the etiology of this is due to severe congestive heart failure, hypertensive nephrosclerosis and diabetic renal disease. He also has longstanding history of colon cancer which is detailed above. There is also a history of gout, recurrent upper GI blood loss, chronic anemia of multiple etiologies, diabetes with diabetic nephropathy, congestive heart failure, and COPD. PAST SURGICAL HISTORY: Significant for colectomy, coronary artery bypass graft, back and neck surgery and a pacemaker placement. ALLERGIES: 1. PENICILLIN. 2. METFORMIN. 3. PPD PROTEIN. SOCIAL HISTORY: He has a longstanding history of chronic tobacco use but quit smoking some time ago. He continues to drink 1-3 drinks per week. He is retired and lives at home, as his is in an extended care facility. MEDICATIONS: At time of my evaluation, include labetalol, allopurinol, atorvastatin. REVIEW OF SYSTEMS: As detailed above. Otherwise is noncontributory. PHYSICAL EXAMINATION: Reveals a thin, frail, cachectic, sallow complected, 81-year-old, white male who was alert and oriented x3, in no distress other than some mild conversational dyspnea. His vital signs showed a blood pressure 122/84, and heart rate of 90. HEENT examination is remarkable for pale sclerae and bitemporal wasting. Neck is supple without adenopathy, thyromegaly or jugular venous distention. Lungs showed a few scattered rhonchi and rales. Heart was regular and rhythmical with a soft systolic murmur. Abdomen is soft and mildly distended without any tenderness, rebound or guarding. There is evidence of hepatosplenomegaly. Extremities do not show any evidence of any clubbing, cyanosis, or edema. Skin turgor is good. LABORATORY DATA: On laboratory examination this morning, his hemoglobin is 7.4, hematocrit 24.3. Sodium is 134, potassium 4.6, chloride of 93, bicarbonate 26, BUN and creatinine are 20 and 2.4. His AST and ALT is normal, however his alkaline phosphatase was 356. IMPRESSION: 1. End-stage renal disease - dialysis dependent. 2. Hypertension with hypertensive heart disease and hypertensive nephrosclerosis. 3. Diabetic nephropathy. 4. Anemia secondary to chronic blood loss. 5. Metastatic colon cancer. 6. Cachexia. RECOMMENDATION: The patient is to be ultrafiltrated today for 3 hours on a Revaclear dialyzer. He will be run without heparin with a 400 blood flow. Will also transfuse 2 units of packed red cells and try to take 2-3 L of fluid off. Once again, I have suggested to the patient to consider a Palliative Care consult which he refuses. Once again, I would like to thank you for allowing me to participate in the care of this most pleasant interesting patient. I will be following him closely with you.
[2017-04-06] MEDS: Insulin GLARgine 100 Unit/mL Syringe SUBQ SCH (21:00)
[2017-04-07] MEDS: Sodium Chloride LOK Flush 10 mL Syringe IVFLUSH SCH ×2 (00:41→08:14)
[2017-04-07 00:56] VITALS: BP 121/42; PULSE 75; RESP 14; O2SAT 96
[2017-04-07 05:22] VITALS: BP 138/53; PULSE 77; RESP 17; O2SAT 99
--- NOTE | 2017-04-07 06:17 | NUR ---
Shift Note Assumed pt care at 1900, pt independent with ambulation,had one episode black tarry stool, no gross bleeding noted, vitals taken, pending am CBC check, call light in reach at all times.
[2017-04-07 06:48] LABS: BASOPHILS % (AUTO) 0.2 % (0-3); EOSINOPHILS % (AUTO) 1.3 % (0-5); MONOCYTES % (AUTO) 6.1 % (4-12); Mean Corpuscular Hemoglobin 30.4 pg (27.0-35.0); Mean Corpuscular Volume 94.9 fL (81-100); NEUTROPHILS % (AUTO) 79.8 % (40-74); Platelet Count 129 bil/L (150-400)
[2017-04-07] MEDS: Insulin LISPRO 300 Unit/3 mL Inj SUBQ SCH ×2 (08:14→12:31)
--- NOTE | 2017-04-07 09:36 | PCM.PNNEPH ---
Subjective Date of Service Apr 07, 2017 Subjective Patient feels much better today. He is tolerating his diet and has no chest pain or worsening of his normal shortness of breath. His hemoglobin is stable at 9.0 and his potassium is 5.4. Exam Vital Signs Vital Sign - Last Date Time Temp Pulse Resp B/P Pulse Ox O2 Delivery O2 Flow Rate FiO2 04/07/17 08:10 Supplement Oxygen 04/07/17 05:22 77 17 138/53 99 3.00 04/07/17 00:56 37.0 Intake and Output 04/06/17 04/06/17 04/07/17 Cumulative From/Thru 15:00 23:00 07:00 04/05/17 14:12 - 04/07/17 05:22 Intake Total 620 ml 750 ml 350 ml 2474 ml Output Total 2200 ml 2200 ml Balance -1580 ml 750 ml 350 ml 274 ml Intake Oral 200 ml 300 ml 350 ml 850 ml IV Total 40 ml 150 ml 644 ml Packed Cells 380 ml 300 ml 980 ml Output Ultrafiltrate 2200 ml 2200 ml # Bowel Movements 1 1 Exam Neck is supple without adenopathy, thyromegaly, or jugular venous distention. Lungs showed some bibasilar rales and scattered end expiratory wheezes. Heart is regular and rhythmical with a soft systolic murmur. Abdomen soft without any tenderness rebound guarding masses or hepatosplenomegaly. Extremities did not show any evidence of any clubbing, cyanosis, or edema. Skin turgor is good. Lab and Diagnostics Result Diagram: 04/07/17 0600 04/07/17 0600 Plan Impression Impression #1 end-stage renal disease dialysis dependent #2carcinoma of the colon with hepatic metastasis #3 recurrent anemia which is multifactorial Plan: Pt. is to dialyzed today for 3 1/2 hours on a revaclear dialyzer,2K bath, no heparin,400 blood flow and 1-2 liters as tolerated. He can be discharged today after dialysis. Jeevan Killian DO Apr 07, 2017 09:36
[2017-04-07 10:13] VITALS: BP 108/38; PULSE 68; RESP 18; O2SAT 99
--- NOTE | 2017-04-07 12:07 | NUR ---
Evaluation completed. Please go to "Notes" then click on "Assessments and Notes" (bottom left corner of screen). Then select appropriate discipline tab on top of screen.
--- NOTE | 2017-04-07 12:49 | NUR ---
Social Work- Readiness for Discharge Data: EMR reviewed. Pt is a 81 year old male on day two of hospitalization for anemia per H&P. Pt is nearing discharge, anticipate discharge later today or tomorrow. Pt is receiving dialysis at this time. SW met with pt while he was dialyzing to confirm discharge plan. Pt is agreeable to returning home. Pt resides at home alone adn received outpt dialysis M/W/F. Per RN note, pt has been ambulating independently during this admission which pt also confirms. Pt to discharge home with daughter to transport via POV. Pt declined ILLUSIONIST contacting his daughter Sandhya. He stated he has already talked to her today and will update her when she needs to pick him up. Pt denied any questions or concerns related to discharge. SW will continue to follow. Assessment: Pt who is independent at baseline. Plan: Pt to discharge home with daughter to transport via POV. No discharge needs identified. SW will continue to follow if needs arise. LOVE Patricio
--- NOTE | 2017-04-07 13:21 | PCM.DC.MED ---
Discharge Summary Date of Service Apr 07, 2017 Dates of Hospitalization Date of Hospital Admission Apr 05, 2017 at 16:57 Date of Discharge: Apr 07, 2017 Providers: Admitting Physician: Ish Her MD Primary Care Physician: Edgar Woodson MD Attending Physician: Ish Her MD Diagnosis at Time of Discharge Diagnosis at Time of Discharge # Acute blood loss anemia, acute on chronic. Probably multifactorial with anemia of chronic renal disease and possible acute GI bleeding. Patient seems asymptomatic. # End stage renal disease, hemodialysis. Normally Wednesday. # Congestive heart failure, chronic, systolic. # Type II diabetes mellitus # Chronic lung disease - # Metastatic colon cancer # Hypertension # Coronary artery disease Consultations Nephrology- Dr Killian Brief History As per HPI by Dr. Her, "Patient has been in his usual state of health. He reports very dark brown stools but no obvious melena or red blood. He has no abdominal complaints. He has had persistent anemia recently in excess of expectation for ESRD. He presented today was found to have guaiac positive stool. He was recommended to have transfusion, but blood was not available in house and had to be ordered from [facility]. He has no other new complaints." Hospital Course 81-year-old man with long-standing advanced colon cancer, recent initiation of hemodialysis and recurrent acute on chronic anemia despite negative endoscopy resents with recurrent asymptomatic GI bleeding. # Acute blood loss anemia, acute on chronic. Probably multifactorial with anemia of chronic renal disease and possible acute GI bleeding. Patient seems asymptomatic. - Transfused 2 units RBC, with good response and stable H&H supporting no active bleeding process. - GI consulted but no plans for immediate endoscopy in light of recently negative studies. . - Tagged RBC scan conducted, no evidence of active bleeding noted. - Discharged home in stable condition. - Plan for outpatient capsule endoscopy following further discussion with GI specialist. # End stage renal disease, hemodialysis. Normally Wednesday. # Congestive heart failure, chronic, systolic. No acute symptoms. BMP is elevated. - Continue outpatient medications. # Type II diabetes mellitus - Stable through hospital stay. No acute changes in these chronic conditions: # Chronic lung disease - monitor O2 sat, oxygen as needed # Metastatic colon cancer # Hypertension # Coronary artery disease Exam Vital Signs (Last) Date Time Temp Pulse Resp B/P Pulse Ox O2 Delivery O2 Flow Rate FiO2 04/07/17 10:13 36.7 68 18 108/38 99 Nasal Cannula 3.00 Exam General: Alert, Oriented X3, Cooperative, No Acute Distress Eyes: Other (sclerae are pink) Mouth: Mucous Membr Moist/[place],mucous membranes pink well perfused Cardiovascular: Regular Rate/Rhythm Extremities: No cyanosis/clubbing/edma bilat Neurological: Grossly Neurologically Intact Test 04/05/17 15:30 04/07/17 06:00 Hemoglobin A1c 6.3% (4.8-5.6) Total Bilirubin 1.6mg/dL (0.0-1.2) Aspartate Amino Transf (AST/SGOT) 29U/L (0-50) Alanine Aminotransferase (ALT/SGPT) 19U/L (0-44) Alkaline Phosphatase 456U/L (25-160) Troponin T 0.056ug/L (0.0-0.011) Pro-B-Type Natriuretic Peptide 14966mc/mL (0-486) Total Protein 7.1g/dL (6.4-8.4) Albumin 2.6g/dL (3.4-5.0) Hold Jones Top Tube Received (Received) White Blood Count 12.4th/mm3 (3.8-10.1) Red Blood Count 2.96mil/mm3 (4.40-5.80) Hemoglobin 9.0g/dL (13.8-17.2) Hematocrit 28.1% (41.0-50.0) Mean Corpuscular Volume 94.9fL (81-100) Mean Corpuscular Hemoglobin 30.4pg (27.0-35.0) Mean Corpuscular Hemoglobin Concent 32.0% (32.0-37.0) Red Cell Distribution Width 18.5% (12.3-15.4) Platelet Count 129bil/L (150-400) Neutrophils (%) (Auto) 79.8% (40-74) Lymphocytes (%) (Auto) 12.4% (14-46) Monocytes (%) (Auto) 6.1% (4-12) Eosinophils (%) (Auto) 1.3% (0-5) Basophils (%) (Auto) 0.2% (0-3) Sodium Level 134mEq/L (134-144) Potassium Level 5.4mEq/L (3.5-5.2) Chloride Level 95mEq/L (97-108) Carbon Dioxide Level 21mmol/L (18-29) Blood Urea Nitrogen 49mg/dL (8-27) Creatinine 4.95mg/dL (0.76-1.27) Estimat Glomerular Filtration Rate 12mL/min (>59) Glucose Level 121mg/dL (60-99) Calcium Level 8.3mg/dL (8.5-10.1) Discharge Medications Discharge Medications Allopurinol (Allopurinol) 100 Mg Tablet 300 MG PO QAM (Reported) Aspirin (Aspirin) 81 Mg Tablet 81 MG PO DAILY (Reported) Atorvastatin (Lipitor) 10 Mg Tab 10 MG PO HS (Reported) Cholecalciferol (Vitamin D3) (Vitamin D3) 1,000 Unit Tab.chew 3,000 UNIT PO QAM (Reported) Labetalol (Labetalol) 100 Mg Tablet 100 MG PO BID Prescribed by: LATRELL MORELAND MD Multivitamin (Once Daily) 1 Each Tablet 1 EACH PO DAILY (Reported) As needed Albuterol HFA (Proair HFA) 8.5 Gm Hfa.aer.ad 2 PUFFS INHALATION Q4H PRN PRN For Shortness of Breath (Reported) Insulin Aspart (NovoLOG U100 Insulin Vial) 100 Unit/Ml Mdv 0-8 UNITS SUBQ TIDWM PRN PRN sliding scale (Reported) Nitroglycerin [place] (Nitroglycerin [place]) 4.9 Gm [place] 1 SPRAY PO Q5MIN PRN PRN For Chest Pain (Reported) Followup Plan Disposition: Discharged home in stable condition. Discharge Diet: No restrictions Follow-up Provider: Edgar Woodson MD Follow-up with PCP in: 1 week Time spent 40 minutes copies to: Edgar Woodson MD, Benjamin P DO Apr 07, 2017 13:21
--- NOTE | 2017-04-07 13:24 | PCM.DIMED ---
Discharge Instructions Date of Service Apr 07, 2017 Dates of Hospitalization Apr 05, 2017 at 16:57 Discharge Diagnosis Discharge Diagnosis # Acute blood loss anemia, acute on chronic. Probably multifactorial with anemia of chronic renal disease and possible acute GI bleeding. Patient seems asymptomatic. # End stage renal disease, hemodialysis. Normally Wednesday. # Congestive heart failure, chronic, systolic. # Type II diabetes mellitus # Chronic lung disease - # Metastatic colon cancer # Hypertension # Coronary artery disease Diet Discharge Diet: No restrictions Activity Discharge Activity: No restrictions Call your provider Call your provider for: Fever or Chills, Shortness of breath Patient Instructions Patient Instructions Continue regular Dialysis [facility] Primary care doctor in 1 week for follow up H&H (test for anemia) Contact your [employer] to discuss possible capsule endoscopy, though at this time we found no evidence of active GI bleeding. Follow-up Provider: Edgar Woodson MD Follow-up with PCP in: 1 week Arthur Lucio DO Apr 07, 2017 13:24
--- NOTE | 2017-04-07 13:41 | NUR ---
Dialysis note 3.5 hr HD tx 1000ml net UF removed. QB 350 thru R tunnelled catheter Dsg c/d/i See DTR for complete vitals trends. Pt rested thru tx without complaints Dwelled with 1000/1 U Heparin post tx and returned to room stable.
--- NOTE | 2017-04-07 14:43 | NUR ---
Discharge home discharge instructions, medications, and follow-up care reviewed with patient. he verbalized understanding and agreed with plan of care. patient's grandson to drive home.
== END 2017-04-07 14:30 | disposition home or self-care (01) | DRG 435 ==
LOC: SED 14:08 → OBSVTOIN 16:57 → MOC 16:57
PROVIDERS: ADMIT Internal Medicine; ATTEND Internal Medicine
PROC: 30233N1 Transfusion of Nonautologous Red Blood Cells into Peripheral Vein, Percutaneous Approach (ICD-10-PCS; principal; 2017-04-05)
PROC: 30233N1 Transfusion of Nonautologous Red Blood Cells into Peripheral Vein, Percutaneous Approach (ICD-10-PCS; 2017-04-06)
PROC: 5A1D60Z (ICD-10-PCS; 2017-04-06)
DX: C78.7 Secondary malignant neoplasm of liver and intrahepatic bile duct (principal); N18.6 End stage renal disease; K92.1 Melena; D62 Acute posthemorrhagic anemia; I50.22 Chronic systolic (congestive) heart failure; R64 Cachexia; I13.2 Hypertensive heart and chronic kidney disease with heart failure and with stage 5 chronic kidney disease, or end stage renal disease; E46 Unspecified protein-calorie malnutrition; Z99.2 Dependence on renal dialysis; Z68.21 Body mass index [BMI] 21.0-21.9, adult; Z99.81 Dependence on supplemental oxygen; I25.10 Atherosclerotic heart disease of native coronary artery without angina pectoris; J44.9 Chronic obstructive pulmonary disease, unspecified; Z85.038 Personal history of other malignant neoplasm of large intestine; Z87.891 Personal history of nicotine dependence; E11.21 Type 2 diabetes mellitus with diabetic nephropathy; Z79.4 Long term (current) use of insulin